=== PATIENT | female | born 1960 | race Caucasian/White ===

== ENCOUNTER 2020-02-20 10:00 | Emergency (ER) | payer OTHER, SELFPAY ==
--- NOTE | ~2020-02-20 | XR_ITS ---
EXAMINATION: XR ribs RT 2V DATE: 02/20/2020 10:33 INDICATION: Right lower rib pain. TECHNIQUE: 3 views of the right ribs were obtained. COMPARISON: Chest 2 views 03/03/2015 FINDINGS: There is a right-sided pneumonia, pleural effusion, or pneumothorax. The heart size is norm al. Surgical clips in the right upper quadrant are likely from cholecystectomy. IMPRESSION: 1. No rib fracture. Reviewed, dictated and finalized at location A. IMPRESSION: 1. No rib fracture.
[2020-02-20 10:13] VITALS: BP 210/91; PULSE 94; RESP 20; TEMP 36.7; O2SAT 100
--- NOTE | 2020-02-20 10:15 | ED.GENADULT ---
HPI - General Adult General Chief complaint: Unspecified Stated complaint: R/side pain Time Seen by Provider: 02/20/20 10:18 Source: patient and RN notes reviewed Mode of arrival: ambulatory Limitations: no limitations History of Present Illness HPI narrative: 60 year old female presents with concern for right chest wall pain. She reports pain started yesterday under her right breast and today feels like it moved around to her right upper back. She denies injury or trauma. She denies rash. She reports pain is stinging and sharp in nature and is worsened with certain movement such as getting up out of a chair. She denies cough or SOB. Reports she is a smoker MD complaint: Chest wall pain Related Data Home Medications Medication Instructions Recorded Confirmed metformin 500 mg tablet 500 mg PO BID 06/18/19 02/20/20 pravastatin 20 mg tablet 20 mg PO DAILY 06/18/19 02/20/20 Allergies Allergy/AdvReac Type Severity Reaction Status Date / Time codeine Allergy Unknown Rash Verified 02/20/20 10:16 Penicillins Allergy Unknown Skin Verified 02/20/20 10:16 irritation Review of Systems Review of Systems: Narrative: CONSTITUTIONAL: Denies malaise, chills, sweats, or fever. CARDIOVASCULAR: Denies chest pain, palpitations, or edema. RESPIRATORY: Denies cough or dyspnea. GASTROINTESTINAL: Denies abdominal pain, nausea, vomiting, diarrhea GENITOURINARY: Denies dysuria or hematuria. SKIN: Denies rash or itching. MUSCULOSKELETAL: Reports right chest wall pain NEUROLOGIC: Denies numbness, weakness All systems reviewed & are unremarkable except as noted in HPI and below PMFSH Family History Family History (Updated 12/03/15 @ 23:19 by DOCTOR UNKNOWN) Mother Family history of diabetes mellitus in first degree relative Sibling Family history of diabetes mellitus in first degree relative Father Family history of heart disease in male family member before age 55 Social History Social History Smoking status: Never smoker Second hand tobacco smoke exposure: Yes Alcohol intake: current Comments At time of signature, agree with nursing past medical, surgical, social and family history. There is no relevant family history pertinent to the presenting complaint Exam Narrative: Exam Narrative: GENERAL: Well-appearing, well-nourished, and in no acute distress. HEAD: Normocephalic, atraumatic. EYES: PERRLA, conjunctivae clear ENT: Mucous membranes moist. NECK: Supple. CHEST: No respiratory distress. Clear to auscultation. No bony deformities, no asymmetry. Speaks in full sentences. HEART: Regular rate and rhythm. No murmur heard. Normal peripheral pulses. MUSCULOSKELETAL: Right posterior chest wall tenderness to deep palpation SKIN: Warm, dry, no rash. NEURO: Alert and oriented x3. PSYCH: Normal mood and affect Course Course Emergency Course: Discussed with patient limited diagnostic capability at [facility], discussed ECG findings, discussed findings compared to prior ECG. Patient does not choose to seek care in the ED at this time. Discussed with patient differential diagnoses, patient still chooses to not seek care in the ED Patient is aware of and understands and agrees to treatment plan. Anticipatory guidance given. Patient agrees to follow-up as directed and is aware of reasons to seek care at the emergency department. Portions of this record may have been created with voice recognition software Vital Signs Vital signs: Vital Signs Temperature 98.1 F 02/20/20 10:13 Pulse Rate 94 02/20/20 10:13 Respiratory Rate 20 02/20/20 10:13 Blood Pressure 210/91 H 02/20/20 10:13 Pulse Oximetry 100 02/20/20 10:13 Temperature 98.1 F 02/20/20 10:13 Pulse Rate 94 02/20/20 10:13 Respiratory Rate 20 02/20/20 10:13 Blood Pressure 210/91 H 02/20/20 10:13 Pulse Oximetry 100 02/20/20 10:13 Reviewed. Patient has history of HTN, did not take HTN medication today Medical Decision Making M
--- NOTE | 2020-02-20 10:57 | ECG_ITS ---
Measurements Intervals [place] Rate: 73 P: 53 TN: 169 QRS: 51 QRSD: 82 T: 73 QT: 381 QTc: 423 Interpretive Statements SINUS RHYTHM CANNOT RULE OUT SEPTAL INFARCT, AGE INDETERMINATE BASELINE ARTIFACT- II, III, AVR, AVL, AVF ABNORMAL ECG Electronically Signed On 02-20-2020 12:06:11 CDT by David Haas D.O.
== END 2020-02-20 11:25 | disposition home or self-care (01) ==
PROVIDERS: Emergency Provider Nurse Practitioner; PCP Internal Medicine
DX: R07.89 Other chest pain (principal); F17.200 Nicotine dependence, unspecified, uncomplicated; E78.00 Pure hypercholesterolemia, unspecified; I10 Essential (primary) hypertension; E11.9 Type 2 diabetes mellitus without complications
CPT/HCPCS: 71100; 93005; 99213; G0463

== ENCOUNTER 2020-10-04 11:07 | Emergency (ER) | payer OTHER, SELFPAY ==
--- NOTE | 2020-10-04 11:29 | ED.DIZZY ---
HPI - Dizziness General Chief Complaint: Ear Stated Complaint: Vertigo Time Seen by Provider: 10/04/20 11:34 Source: patient and RN notes reviewed Mode of arrival: ambulatory Limitations: no limitations History of Present Illness HPI Narrative: 60-year-old female presents with concern for a lateral ear pain. Reports sharp pain that comes and goes, mainly in her right ear, occasionally in her left ear. Reports similar symptoms in the past for which she was treated for vertigo. She denies any dizziness, weakness in any extremity, difficulty swallowing, difficulty speaking, vision changes. Denies rhinorrhea, nasal congestion, sore throat, postnasal drainage. She denies drainage from the ears. Denies any other symptoms. Reports taking Tylenol for pain. Reports she did not take her blood pressure medicine today because she was afraid it would interact with the prescription she might get. MD elicited complaint: other (Ear pain) Related Data Home Medications Medication Instructions Recorded Confirmed metformin 500 mg tablet 500 mg PO BID 06/18/19 10/04/20 pravastatin 20 mg tablet 20 mg PO DAILY 06/18/19 10/04/20 Allergies Allergy/AdvReac Type Severity Reaction Status Date / Time codeine Allergy Unknown Rash Verified 02/20/20 10:16 Penicillins Allergy Unknown Skin Verified 02/20/20 10:16 irritation Review of Systems Review of Systems: Narrative: CONSTITUTIONAL: Denies malaise, chills, sweats, or fever. EYES: Denies visual changes, redness, or discharge. ENT: Denies rhinorrhea, congestion, sinus pain, and sore throat. Reports bilateral ear pain CARDIOVASCULAR: Denies chest pain, palpitations, or edema. RESPIRATORY: Denies cough dyspnea. GASTROINTESTINAL: Denies abdominal pain, nausea, vomiting, diarrhea SKIN: Denies rash or itching. MUSCULOSKELETAL: Denies myalgia. NEUROLOGIC: Denies headache. All systems reviewed & are unremarkable except as noted in HPI and below [facility] Family History Family History (Updated 12/03/15 @ 23:19 by DOCTOR UNKNOWN) Mother Family history of diabetes mellitus in first degree relative Sibling Family history of diabetes mellitus in first degree relative Father Family history of heart disease in male family member before age 55 Social History Social History Smoking status: Never smoker Second hand tobacco smoke exposure: Yes Alcohol intake: current Gender identity (if verbalized by the patient): Female Comments At time of signature, agree with nursing past medical, surgical, social and family history. There is no relevant family history pertinent to the presenting complaint Exam Narrative: Exam Narrative: GENERAL: Well-appearing, well-nourished, and in no acute distress. HEAD: Normocephalic EYES: PERRLA, conjunctivae clear ENT: Nares clear, turbinates pink, discharge. Mucous membranes moist. TM pearly wyatt with dull light reflex bilaterally; no tragal tenderness. Oropharynx not erythematous without lesions. Tonsils not enlarged and without exudate, no drooling, no hoarseness, no trismus, uvula midline. NECK: Supple. No lymphadenopathy CHEST: Clear to auscultation, breath sounds equal. No wheezing, rhonchi, rales, or stridor. No respiratory distress, speaks in full sentences. HEART: Regular rate and rhythm. No murmur heard. SKIN: Warm, dry, no rash. NEURO: Alert and oriented x3. No focal deficits. Cranial nerves II through XII grossly intact PSYCH: Normal mood and affect Course Course Emergency Course: Patient is aware of diagnosis, understands and agrees to treatment plan. Anticipatory guidance given. Patient agrees to follow-up as directed and is aware of reasons to seek care at the emergency department. Portions of this record may have been created with voice recognition software Vital Signs Vital signs: Vital Signs Temperature 98.0 F 10/04/20 11:31 Pulse Rate 94 10/04/20 11:31 Respiratory Rate 18 10/04/20 11:31 Blood Pressure 204/79 H 10/04/20 11:3
[2020-10-04 11:31] VITALS: BP 204/79; PULSE 94; RESP 18; TEMP 36.7; O2SAT 98
== END 2020-10-04 11:43 | disposition home or self-care (01) ==
PROVIDERS: Emergency Provider Nurse Practitioner; PCP Internal Medicine
DX: H65.03 Acute serous otitis media, bilateral (principal); I25.10 Atherosclerotic heart disease of native coronary artery without angina pectoris; E78.00 Pure hypercholesterolemia, unspecified; I10 Essential (primary) hypertension; E11.9 Type 2 diabetes mellitus without complications
CPT/HCPCS: 99213; G0463

== ENCOUNTER 2023-02-28 08:25 | Outpatient (CLI) | payer OTHER, SELFPAY ==
--- NOTE | ~2023-02-28 | MM_ITS ---
EXAMINATION: MM screening marilia BI w zakiya HISTORY: Screening mammogram TECHNIQUE: Craniocaudal and mediolateral oblique 3-D tomosynthesis images were obtained and synthetic 2-D images were generated. CAD analysis was submitted and interpreted. COMPARISON: August 24, 2017 bilateral screening mammogram BREAST PARENCHYMAL COMPOSITION: The breasts are almost entirely fatty. FINDINGS: There is no evidence of suspicious mass, calcification, or architectural distortion to sugg est malignancy in either breast. There has been no suspicious interval change. IMPRESSION: 1. No mammographic evidence of malignancy. 2. Recommend routine screening mammography in one year. BI-RADS Category 1: Negative Reviewed, dictated and finalized at location A.
== END 2023-02-28 08:26 | disposition home or self-care (01) ==
LOC: ANHIMG 08:29
PROVIDERS: PCP Nurse Practitioner; Visit Provider Nurse Practitioner
DX: Z12.31 Encounter for screening mammogram for malignant neoplasm of breast (principal)
CPT/HCPCS: 77063; 77067

== ENCOUNTER 2024-07-10 09:26 | Outpatient (CLI) | payer OTHER, SELFPAY ==
--- OUTSIDE RECORDS SUMMARY | 2024-07-10 10:23 | XMS_ITS | Patient Health Summary ---
Author Organization [facility] Address [address] [place] [address] Care Team Providers Care Data Center Engineer Name Role Phone Abel Willard MD Primary Care Provider [phone] Note from [facility],non-owned Affiliates and Associated Physician Practices is amultiple site organization consisting of ambulatory clinics and hospital sitesin [place], [place], [place] and [place]. This disclosure is being madepursuant to the Care Everywhere program and may not contain all information available regarding this patient. Last updated 18.[facility] Allergies * Codeine(Rash) -Medium Criticality * Penicillin G(Rash) -Medium Criticality Active Problems Problem Noted Date Diagnosed Date Primary biliary cholangitis 08/16/2016 Social History Tobacco Use Types Packs/Day Years Used Date Smoking Tobacco: Every Day Cigarettes Smokeless Tobacco: Never Alcohol Use Standard Drinks/Week Comments Yes 0.8 (1 standard drink = 0.6 oz p ure alcohol) Sex and Gender Information Value Date Recorded Sex Assigned at Not on file Gender Identity Not on file Sexual Orientation Not on file Last Filed Vital Signs Vital Sign Reading Time Taken Comments Blood Pressure 164/81 02/10/2013 9:51 AM CDT Pulse 84 02/10/2013 9:51 AM CDT Temperature 36.9 C (98.5 F) 02/10/2013 9:51 AM CDT Respiratory Rate 20 02/10/2013 9:51 AM CDT Oxygen Saturation - - Inhaled Oxygen Concentration - - Weight 92.1 kg (203 lb) 02/10/2013 9:51 AM CDT Height 167.6 cm (5' 6 ) 02/10/2013 9:51 AM CDT Body Mass Index 32.77 02/10/2013 9:51 AM CDT Procedures * COMPREHENSIVE METABOLIC PANEL(Performed 02/10/2013) * CBC W AUTO DIFFERENTIAL(Performed 02/10/2013) * COMPREHENSIVE METABOLIC PANEL(Performed 08/05/2012) * CBC W AUTO DIFFERENTIAL(Performed 08/05/2012) * PATHOLOGY REPORTS - HPF HISTORICAL(Performed 01/19/2012) * COMPREHENSIVE METABOLIC PANEL(Performed 01/15/2012) * CBC W AUTO DIFFERENTIAL(Performed 01/15/2012) * PATHOLOGY REPORTS - [facility] HISTORICAL(Performed 04/05/2011) Results * (ABNORMAL) CBC W AUTO DIFFERENTIAL (02/10/2013 9:39 AM CDT) Only the most recent of3 resultswithin the time period is included. WBC 11.6(H) 3.5 - 10.5 10^3/uL [facility] RBC 4.60 3.90 - 5.00 10^6/uL [facility] Hemoglobin 14.5 12.0 - 15.5 g/dL [facility] Hematocrit 44.4 35.0 - 45.0 % [facility] MCV 96.5 81.0 - 97.0 FL [facility] MCH 31.5 28.0 - 34.0 PG [facility] MCHC 32.7 32.0 - 36.0 G/DL [facility] Platelet 358 150 - 400 10^3/uL [facility] RDW 13.3 11.2 - 14.8 % [facility] RDW-SD 46.8 36 - 50 FL [facility] MPV 11.1 9.3 - 12.8 FL [facility] Neutrophils % 61.2 35.0 - 70.0 % [facility] Lymphocytes % 27.0 19.7 - 55.1 % [facility] Monocytes % 6.7 3 - 15 % [facility] Eosinophils % 4.8 0.0 - 6.0 % [facility] Basophils % 0.3 0.0 - 1.5 % [facility] Neutrophils Absolute 7.1(H) 1.7 - 7.0 10^3/uL [facility] Lymphocyte Absolute 3.1(H) 0.8 - 2.9 10^3/uL [facility] Monocytes Absolute 0.8(H) 0.14 - 0.66 10^3/uL [facility] Eosinophils Absolute 0.56(H) 0.00 - 0.22 10^3/uL [facility] Basophils Absolute 0.04 0.02 - 0.06 10^3/uL [facility] Differential Type AUTO DIFFERENTIAL [facility] 02/10/2013 9:39 AM CDT 02/10/2013 10:55 AM CDT Ulises Villanueva MD LAB - HEMATOLOGY ORD ERABLES [facility] [address] [phone] * (ABNORMAL) COMPREHENSIVE METABOLIC PANEL (02/10/2013 9:39 AM CDT) Only the most recent of3 resultswithin the time period is included. BUN 11 7 - 26 mg/dL [facility] Creatinine 0.7 0.6 - 1.2 mg/dL [facility] eGFR by MDRD > 60 ML/MIN [facility] Comment: Chronic kidney disease: <60 ml/min Kidney failure: <15 ml/min Based on BSA of 1.73m2. Sodium 143 136 - 145 mmol/L [facility] Potassium 4.1 3.5 - 4.5 mmol/L [facility] Chloride 103 98 - 107 mmol/L [facility] CO2 28 22 - 29 mmol/L [facility] Glucose 94 70 - 115 mg/dL [facility] Calcium 10.0 8.4 - 10.2 mg/dL [facility] Protein Total 7.5 6.0 - 8.3 g/dL [facility] Albumin 4.0 3.4 - 5.0 g/dL [facility] Bilirubin Total 0.6 0.2 - 1.2 mg/dL [facility] Alkaline Phosphatase 323(H) 40 - 150 Units/L [facility] ALT 38 0 - 55 Units/L [facility] AST 44(H) 5 - 34 Units/L [facility] Anion Gap 16 8 - 18 [facility] BUN/Creatinine Ratio 15 7 - 23 [facility] Osmolality Calculation 279 270 - 300 mOsm/kg [facility] Albumin/Globulin Ratio 1.1 1.1 - 2.3 [facility] 02/10/2013 9:39 AM CDT 02/10/2013 10:55 AM CDT Ulises Villanueva MD LAB - CHEMISTRY ANDRE COON [facility] [address] [phone] * PATHOLOGY REPORTS - HPF HISTORICAL (01/19/2012 3:31 AM CDT) Only the most recent of2 resultswithin the time period is included. 01/19/2012 3:31 AM CDT Narrative [facility] - 01/19/2012 3:31 AM CDT Historical Provider LAB - PATHOLOGY/C YTOLOGY ORDERABLES Performing Organization Address City/[facility]/ZIP Co de Phone Number [facility] [address] Care Teams Data Center Engineer Relationship Specialty Start Date End Date Abel Willard MD [address] [place] [address] PCP - General 11/08/10
--- OUTSIDE RECORDS SUMMARY | 2024-07-10 10:23 | XMS_ITS | Clinical Summary ---
Author Organization [facility] Address [address] [place] [address] Care Team Providers Care Casting Room Helper Name Role Phone Abel Willard MD Primary Care Provider [phone] Source Comments [facility],non-owned Affiliates and Associated Physician Practices is amultiple site organization consisting of ambulatory clinics and hospital sitesin [place], [place], [place] and [place]. This disclosure is being madepursuant to the Care Everywhere program and may not contain all information available regarding this patient. 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 Overview (08/06/2017): IMO Import Social History Tobacco Use Types Packs/Day Years [...] Mass Index 32.77 02/10/2013 9:51 AM CDT Plan of Treatment Health Maintenance Due Date Last Done Comments COLOGUARD (AGES 45-75) - COL ON CA SCREENING 1962 COLON MONITORING 1962 COLONOSCOPY - COLON CA SCREENING 1962 CT COLONOGRAPHY - COLON CA SCREENING 1962 Colorectal Cancer Screening 1962 FIT - COLON CA SCREENING 1962 FLEX SIG - COLON CA SCREENING 1962 LIPID TESTING 1962 HIV SCREENING 1977 HEPATITIS C SCREENING 01/30/1980 DTAP/TDAP/TD VACCINES (1 - Tdap) 1981 PNEUMOCOCCAL VACCINE 50+ (1 of 2 - PCV) 1981 PNEUMOCOCCAL VACCINE (1 of 2 - PCV) 1981 ZOSTER VACCINE (1 of 2) 02/04/2012 HEPATITIS B VACCINE (1 of 3 - Risk 3-dose series) 2022 Respiratory Syncytial Virus (RSV) Vaccine Pt: or over 60 yrs (1 - Risk 60-74 years 1-dose series) 2022 COVID-19 VACCINE (4 - 2023-2 5 season) 2024 04/21/2021, 08/29/2020, 08/07/2020 DEPRESSION SCREENING 05/07/2024 MAMMOGRAM 02/28/2025 02/28/2023 PAP SMEAR 01/18/2026 01/18/2023 INFLUENZA VACCINE Completed 03/06/2024 HIB VACCINE Aged Out No longer eligi ble based on patient's age to complete this topic HPV VACCINE Aged Out No longer eligi ble based on patient's age to complete this topic MENINGOCOCCAL (Group B) VACCINE Aged Out No longer eligible b ased on patient's age to complete this topic MENINGOCOCCAL VACCINE Aged Out No vane dianna eligible based on patient's age to complete this topic Care Teams Casting Room Helper Relationship Specialty Start Date End Date Abel Willard MD [address] [place] [address] PCP - General 11/08/10
--- OUTSIDE RECORDS SUMMARY | 2024-07-10 10:23 | XMS_ITS | Clinical Summary ---
Author Organization [facility] Medical Office Building B Address [address] [place] [address] Care Team Providers Care Sound Editor Name Role Phone Patito Gaitan MD Primary Care Provider [phone] Allergies Active Allergy Reactions Criticality Noted Date Comments Codeine Rash Medium 08/05/2012 Penicillin G Rash Medium 08/05/2012 Medications albuterol HFA (PROVENTIL HFA,VENTOLIN HFA,PROAIR HFA) 90 mcg/actuation inhaler Inhale 2 puffs every 4 (four) hours as needed 4 Active amLODIPine (NORVASC) 5 mg tablet Take 2 tablets (10 mg total) by mouth daily 4 Active buPROPion XL (WELLBUTRIN XL) 150 mg 24 hr tablet Take 1 tablet (150 mg total) by mouth daily 4 Active hydrALAZINE (APRESOLINE) 50 mg tablet Take 1 tablet (50 mg total) by mouth 2 (two) times a day 4 Active hydroCHLOROthia zide (HYDRODIURIL) 25 mg tablet Take 1 tablet (25 mg total) by mouth 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 before 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 4 Active losartan-hydroC HLOROthiazide (HYZAAR) 100-12.5 mg per tablet Take 1 tablet by mouth daily 4 Active metoprolol XL (TOPROL-XL) 25 mg extended release tablet Take 1 tablet (25 mg total) by mouth daily 4 Active pravastatin (PRAVACHOL) 20 mg tablet Take 2 tablets (40 mg total) by mouth daily 4 Active umeclidinium-vi lanteroL (Anoro Ellipta) 62.5-25 mcg/actuation blister with device Inhale 1 puff once 4 Active ursodioL (ACTIGALL) 300 mg capsule Take 2 capsules (600 mg total) by mouth 2 (two) times a day 3 Active Airsupra 90-80 mcg/actuation HFA aerosol inhaler Inhale 2 puffs every 4 (four) hours as needed 4 Active varenicline tartrate (CHANTIX OBDULIA) 0.5 mg (11)- 1 mg (42) tablet Use as directed on package instructions; try to quit smoking after 1 week. 53 tablet 4 07/09/19 25 Active Problems Problem Noted Date Diagnosed Date Chronic bronchitis, unspecified chronic bronchit is type 07/08/2024 Encounters Date Type Department Care Team Description 07/08/2024 11:25 AM ORACLE FINANCIALS DEVELOPER Lab [address] Chronic bronchitis, unspecified chronic bronchitis type (HCC) 07/08/2024 10:30 AM ORACLE FINANCIALS DEVELOPER Office Visit [facility] Pul[facility] at [address] [place] [phone] Quang Goodwin DO Chronic bronchitis, unspecified chronic bronchitis type (HCC) (Primary Dx) 07/02/2024 Telephone [facility] at [address] [place] [phone] Tatiana Jalloh 07/01/2024 Telephone [facility] Pul[facility] at [address] [place] [phone] Kendra Quiroga LPN Appt reminder, PFT from Last 3 Months Medical History Medical History Date Comments Hypertension Liver disease COPD (chronic obstructive pulmonary disease) (HC C) Family History Medical History Relation Name Comments Cancer Brother 1 Sunday Drug abuse Brother 1 Sunday Diabetes Brother 2 Shankar Heart disease Brother 3 Rios Heart disease Brother 4 Nikita Heart disease Brother 5 Mauri Liver disease Brother 6 Usman Diabetes Brother 7 Brooks Diabetes Father Emphysema Father Heart disease Father Hypertension Father Lung disease Father Heart disease Mother Heart failure Mother Hypertension Mother Brain cancer Mother's Sister Cancer Mother's Sister Emphysema Sister 1 Trudy Hypertension Sister 1 Trudy Kidney disease Sister 2 Sissy Lung disease Sister 2 Sissy Relation Name Status Comments Brother 1 Sunday Brother 2 Shankar Brother 3 Rios Alive Brother 4 Nikita Alive Brother 5 Mauri Alive Brother 6 Usman Alive Brother 7 Brooks Father Mother Mother's Sister Sister 1 Trudy Alive Sister 2 Sissy Alive Social History Tobacco Use Types Packs/Day Years Used Date Smoking Tobacco: Every Day Cigarettes 1 42.3 Started: 04/09/1982 Tobacco Cessation:Ready to Q uit: Not Asked; Counseling Given: Not Answered Comments Unknown Sex and Gender Information Value Date Recorded Sex Assigned at Not on file Legal Sex Female 9:03 AM ORACLE FINANCIALS DEVELOPER Gender Identity Not on file Sexual Orientation Not on file Obstetrics History Last Filed Vital Signs Vital Sign Reading Time Taken Comments Blood Pressure 158/64 07/08/2024 10:26 AM ORACLE FINANCIALS DEVELOPER Pulse 96 07/08/2024 10:26 AM ORACLE FINANCIALS DEVELOPER Temperature 36.6 C (97.8 F) 07/08/2024 10:26 AM ORACLE FINANCIALS DEVELOPER Respiratory Rate 18 04/09/2024 10:5 8 AM ORACLE FINANCIALS DEVELOPER Oxygen Saturation 95% 07/08/2024 10: 26 AM ORACLE FINANCIALS DEVELOPER Inhaled Oxygen Concentration - - Weight 101.7 kg (224 lb 4.8 oz) 025 10:26 AM ORACLE FINANCIALS DEVELOPER Height 165.1 cm (5' 5 ) 07/08/2024 10:2 6 AM ORACLE FINANCIALS DEVELOPER Body Mass Index 37.33 07/08/2024 10:26 AM ORACLE FINANCIALS DEVELOPER Plan of Treatment Health Maintenance Due Date Last Done Comments Breast Cancer Screening-Mammogram 1962 Colon Cancer Screening-Colonoscopy 1962 Depression Screening 1962 Hepatitis C Screening 1962 Hepatitis B Screening 02/04/1980 Regular Well Visit/Exam 18-64 02/04/1980 Lung Cancer Screening 02/04/2012 Covid-19 Vaccine ( season) 2024 04/21/2021, 08/29/2020, 08/07/2020 Cervical Cancer Screening 01/19/2024 01/18/2023 DTaP/Tdap/Td Vaccine (2 - Td or Tdap) 12/12/203212/2022 Pneumococcal vaccine <65 Completed 12/12/2022 Zoster Vaccine Completed 03/12/2023, 01/04/2023 Influenza Vaccine Completed 03/06/2024 Procedures Procedure Name Priority Date/Time Associated Diagnosis Comments DIFFERENTIAL AUTO Routine 07/08/2024 11: 25 AM [employer]ACLE [employer]CIALS DEVELOPER Chronic bronchitis, unspecified chronic bronchitis type (HCC) CBC WITH AUTO DIFFERENTIAL Routine 07/08/2024 11:25 AM [employer]ACLE FIN[employer]CIALS DEVELOPER Chronic bronchitis, unspecified chronic bronchitis type (HCC) from Last 3 Months Results * (ABNORMAL) Differential, auto (07/08/2024 11:25 AM ORACLE FINANCIALS DEVELOPER) Neutrophil abs 7.8(H) 1.5 - 6.5 K/cumm Imm gran abs 0.0 0.0 - 0.1 K/cumm [facility] ([place]) Lymphocyte abs 3.4(H) 0.8 - 3.3 K/cumm [facility] ([place]) Monocyte abs 0.9(H) 0.2 - 0.8 K/cumm [facility] ([place]) Eosinophil abs 0.3 0.0 - 0.5 K/cumm [facility] ([place]) Basophil abs 0.1 0.0 - 0.1 K/cumm [facility] ([place]) Neutrophil pct 63.2 % [facility] ([place] Comment: Interpretive Data Percent cell count reference ranges are not reported, since discordance with absolute values may lead to misinterpretation of CBC data. Current Interpretive Data was last revised on 2017. Imm gran pct 0.2 % [facility] ([place]) Comment: Interpretive Data Percent cell count reference ranges are not reported, since discordance with absolute values may lead to misinterpretation of CBC data. Current Interpretive Data was last revised on 2017. Lymphocyte pct 27.1 % [facility] ([place]) Comment: Interpretive Data Percent cell count reference ranges are not reported, since discordance with absolute values may lead to misinterpretation of CBC data. Current Interpretive Data was last revised on 2017. Monocyte pct 7.0 % [facility] ([place]) Comment: Interpretive Data Percent cell count reference ranges are not reported, since discordance with absolute values may lead to misinterpretation of CBC data. Current Interpretive Data was last revised on 2017. Eosinophil pct 2.0 % [facility] ([place] Comment: Interpretive Data Percent cell count reference ranges are not reported, since discordance with absolute values may lead to misinterpretation of CBC data. Current Interpretive Data was last revised on 2017. Basophil pct 0.5 % [facility] ([place]) Comment: Interpretive Data Percent cell count reference ranges are not reported, since discordance with absolute values may lead to misinterpretation of CBC data. Current Interpretive Data was last revised on 2017. Blood 07/08/2024 11:2 5 AM ORACLE FINANCIALS DEVELOPER 07/08/2024 2:04 PM ORACLE FINANCIALS DEVELOPER Quang Goodwin DO LAB BLOOD ORDERABLES Sarah valdez Result [facility] ([place]) 1 [facility] [place] [address] * (ABNORMAL) CBC with auto differential (07/08/2024 11:25 AM ORACLE FINANCIALS DEVELOPER) WBC 12.4(H) 3.8 - 9.9 K/cumm Hgb 13.8 11.9 - 15.5 g/dL [facility] ([place]) Hct 42.1 35.6 - 45.5 % [facility] ([place]) Plt 299 150 - 400 K/cumm [facility] ([place]) MPV 11.2 9.1 - 12.3 fL [facility] ([place]) RBC 4.11 3.90 - 5.20 M/cumm [facility] ([place]) MCV 102.4(H) 81.3 - 96.4 fL [facility] ([place]) MCH 33.6(H) 27.1 - 33.3 pg [facility] ([place]) MCHC 32.8 32.3 - 35.7 g/dL [facility] ([place]) RDW CV 13.9 11.1 - 14.9 % [facility] ([place] RDW SD 52.8(H) 35.7 - 48.1 fL [facility] ([place]) NRBC abs 0.00 0.00 - 0.01 K/cumm [facility] ([place]) Blood 07/08/2024 11:2 5 AM [employer]ACLE FINANCIALS DEVELOPER 07/08/2024 2:04 PM ORACLE FINANCIALS DEVELOPER Quang Goodwin DO LAB BLOOD ORDERABLES Sarah l Result [facility] ([place]) 1 [facility] [place] [address] from Last 3 Months Insurance [employer] OPEN ACCESS Care Teams Sound Editor Relationship Specialty Start Date End Date Patito Gaitan MD [address] [place] [address] PCP - General Nurse Practitioner 03/11/24
--- OUTSIDE RECORDS SUMMARY | 2024-07-10 10:23 | XMS_ITS | Encounter Summary ---
Author Organization [facility] Address [facility] [place] [address] Care Team Providers Care Gin Operator Name Role Phone Patito Gaitan NP Primary Care Provider [phone] Encounter Details Date Type Department Care Team (Late st Contact Info) Description 01/23/2023 [employer] Message Enc [facility] Medical Group Family Medicine [facility] [address] [phone] Patito Gaitan NP [address] [place] [id number] [facility] Social History Tobacco Use Types Packs/Day Years Used Date Smoking Tobacco: Every Day Cigarettes 1 40 Passive Smoke Exposure: Current Smokeless Tobacco: Never Comments:1 pack down to 12 c igarettes per day for 3 weeks now. Alcohol Use Standard Drinks/Week Comments Yes 3.3 (1 standard drink = 0.6 oz p ure alcohol) PHQ-2 Answer Date Recorded Patient Health Questionnaire-2 Score 1 11/13/2022 Comments No Sex and Gender Information Value Date Recorded Sex Assigned at Female 05/20/2024 8:19 AM DIRECTOR CLINICAL INFORMATION SERVICES Legal Sex Female 3:57 PM CDT Gender Identity Not on file Sexual Orientation Not on file documented as of this encounter Plan of Treatment Not on file documented as of this encounter Visit Diagnoses Not on filedocumented in this encounter Additional Health Concerns Assessment Noted Time PHQ-9 Depression Total Score: 4 11/14/19 23 3:06 PM CDT documented as of this encounter Care Teams Gin Operator Relationship Specialty Start Date End Date Patito Gaitan NP [address] [place] [address] PCP - General NURSE PRACTITIONER 09/08/21 documented as of this encounter
--- OUTSIDE RECORDS SUMMARY | 2024-07-10 10:23 | XMS_ITS | Referral Summary ---
Author Organization [facility] [employer] Address [address] [place] [address] Care Team Providers Care Supervisor Microfilm Duplicating Unit Name Role Phone Abel Willard MD Primary Care Provider [phone] Source Comments [facility] [employer],non-owned Affiliates and Associated Physician Practices is amultiple site organization consisting of ambulatory clinics and hospital sitesin [place], [place], [place] and [place]. This disclosure is being madepursuant to the Care Everywhere program and may not contain all information available regarding this patient. Last updated 18.[facility] [employer] Allergies Active Allergy Reactions Criticality Noted Date [...] 02/10/2013 9:51 AM CDT Plan of Treatment Not on file Care Teams Supervisor Microfilm Duplicating Unit Relationship Specialty Start Date End Date Abel Willard MD [address] [place] [address] PCP - General 11/08/10
--- OUTSIDE RECORDS SUMMARY | 2024-07-10 10:23 | XMS_ITS | Encounter Summary ---
Author Organization [facility] Address [facility] [place] [address] Care Team Providers Care Postal Service Mail Processor Name Role Phone Patito Gaitan NP Primary Care Provider [phone] Encounter Details Date Type Department Care Team (Late st Contact Info) Description 03/02/2023 [employer] Message Enc [facility] Medical Group Family Medicine [facility] [address] [phone] Patito Gaitan NP [address] [phone] mammogram Social History Tobacco Use Types Packs/Day Years [...] Sex Assigned at Female 05/20/2024 8:19 AM SYNTHETIC RESIN OPERATOR Legal Sex Female 3:57 PM CDT Gender Identity Not on file Sexual Orientation Not on file documented as of this encounter Plan of Treatment Not on file documented as of this encounter Visit Diagnoses Not on filedocumented in this encounter Additional Health Concerns Assessment Noted Time PHQ-9 Depression Total Score: 4 11/14/19 23 3:06 PM CDT documented as of this encounter Care Teams Postal Service Mail Processor Relationship Specialty Start Date End Date Patito Gaitan NP [address] [place] [address] PCP - General NURSE PRACTITIONER 09/08/21 documented as of this encounter
--- OUTSIDE RECORDS SUMMARY | 2024-07-10 10:24 | XMS_ITS | Encounter Summary ---
Author Organization [facility] Address [facility] [place] [address] Care Team Providers Care Fan Mail Clerk Name Role Phone Patito Gaitan NP Primary Care Provider [phone] Encounter Details Date Type Department Care Team (Late st Contact Info) Description 03/23/2023 [employer] Message Enc [facility] Medical [facility] Family Medicine [facility] [address] [phone] Patito Gaitan NP [address] [phone] Social History Tobacco Use Types Packs/Day Years Used Date Smoking Tobacco: Every Day Cigarettes 0.5 40 Passive Smoke Exposure: Current Smokeless Tobacco: Never Comments:1 pack down to 12 c igarettes per day for 3 weeks now. 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
--- OUTSIDE RECORDS SUMMARY | 2024-07-10 10:24 | XMS_ITS | Data Portability ---
Author Organization [place] [facility], Main Office Address [address] [place] [address] Assessment Encounter Date Assessment Date Assessment LastModified by Organization Details LastModified Time 08/21/2023 08/21/2023 Assessment: Nicotine smoke: 1 ppd 1981-present = 42 pack years Severe ACO Pulmonary nodules Bronchiectasis Atelectasis Plan: The following were reviewed and explained to the patient: primary care/referral note Chest CT 08/24/17 lingular bronchiectasis, mucus plugging and atelectasis, 4 mm LLL nodule, 2 mm RUL nodule PFT 04/17/08 FEV1 1.33 L (47%), BD 230 mL = 21%, TLC 5.16 L (95%), RV 2.87 L (152%), DLCO 98% Nicotine cessation counseling provided for 4 minutes. [place] for quitting nicotine include getting ready, getting support and encouragement, learning new skills and behaviors and being prepared to handle slips. Tips for dealing with cravings provided. Prevention of subsequent illnesses from nicotine addiction discussed. Comorbidities include but are not limited to hypertension, cerebrovascular disease, coronary heart disease, congestive heart failure, hyperlipidemia, COPD/asthma, peptic ulcer disease, esophagitis/gastri tis, and osteoporosis. Therapy options offered include: Quitting by total abstinence Receiving nicotine replacement therapy Undergoing hypnosis Filling a bupropion or varenicline prescription Enrolling in Quit For Life program Registering at [email or web address] Making a call to 5-965-RMYZ-NOW ( ). A strong, clear, personalized message was given to the patient to quit smoking. The patient was urged to set a quit date. We discussed patient's barriers to quitting and I will be of assistance when patient is ready to quit. I encouraged patient to inform friends and family of plans to quit with a request for support. I encouraged the patient to remove all cigarettes from the environment. We reviewed any previous quit attempts and lessons learned from them. I encouraged total abstinence from smoking and advised the patient that drinking alcohol and/or associating with other smokers are associated with failure or relapse. Patient can enroll in [facility]'s smoking cessation class through Trudy Smith RN at . Enrollment is free and classes are held every sunday of the month from 1:30 pm to 2:30 pm at the conference room next to the cafeteria on the ground floor. The [employer] recommends annual screening for lung cancer with low-dose computed tomography (LDCT) for people aged 50 to 80 years old who smoke or formerly smoked and have a 20-year or greater pack-year history. Screening is no longer discontinued even when a person has not smoked for 15 years. LDCT ordered. Cough/Dyspnea workup will be done as follows: Respiratory allergen panel for [facility] Serum IgE Serum total IgG, IgG1, IgG2, IgG3, IgG4 Xljsw-7-[id number] n phenotype and level TB stimulated gamma interferon B-type natriuretic peptide (BNP) Eosinophil count Complete pulmonary function testing (PFT) Continue Albuterol HFA as needed. Continue Anoro Ellipta 62.5/25 mcg 1 inhalation daily. The patient does not know how to accurately administer the inhalers. Today, the patient was shown how to take these medications. The proper technique for delivering these medications was instructed. The patient expressed a clear understanding and demonstrated back how to use these medications. Without the proper technique, the patient will not reap the benefits of these medications as the contents will not reach the lower airways as intended to be. Adherence to therapy is advocated. Nonadherence may lead to treatment failure, further progression of the condition, and other complications. Hospitals admissions are often the result of individuals not taking prescription medications accurately. Alternatively, greater adherence to medication regimens have shown to lower rates of hospitalization and decrease total medical costs in patients with chronic medical conditions. Advocated influenza vaccination annually and pneumonia vaccination CECILIA. Advocated weight loss through diet and exercise. Patient's ideal body weight according to height and gender is up to 140 lbs. Encouraged patient to adjust caloric intake to maintain/achieve ideal body weight, emphasizing on fruits, vegetables, whole grains, and fat-free or low-fat products. These include lean meats, poultry, fish, beans, eggs, and nuts and foods that are low in saturated fats, trans-fats, cholesterol, salt (sodium), and glycemic index. Stressed the importance of regular exercise up to the patient's capacity limits. In this case, we recommend 20 min daily walking, 2 days a week of resistance training. Patient to monitor BP daily and bring records to PCP for further management. Follow-up: 1 week after PFT and LDCT [email or web address] Not available 08/21/2023 12:15:33 Plan of Treatment Reminders Order Date Submit Date Provider Last Modified By Organization Details Last Modified Time Details Appointments None recorded. Lab alpha-1-ant itrypsin (aat) phenotype, serum 2023 024 [facility] (Lab), [address] [place], [address], 4 11:15:54 BNP (B-type natriuretic peptide), serum or plasma 2023 024 [facility] (Lab), [address] [place], [address], 4 15:27:00 ige, total, serum 2023 024 [email or web address] (Lab), [address] [place], [address], 4 14:14:34 tb (M tuberculosi s), ifn-gamma rosaline, blood 2023 024 [email or web address] (Lab), [address] [place], [address], 4 14:14:35 eosinophil count, manual, blood (OBS) [email or web address] [place] [address] (Lab), [address] [place], [address], 4 14:14:35 igg subclasses 1+2+3+4, serum 2023 024 [email or web address] (Lab), [address] [place], [address], 4 14:14:35 respiratory allergen panel - [facility] a [address] (Lab), [address] [place], [address], 4 14:14:35 respiratory allergen panel - [facility] b 2023 024 [place] [address] 25 [facility] (Lab), [address] [place], [address], 4 14:14:35 Referral None recorded. Procedures None recorded. Surgeries None recorded. Imaging LDCT, chest, for lung cancer screening - Nicotine smoke: 1 ppd 1981-presen t = 42 pack years; no auth required 2023 024 [facility] [address] [place] [address] ([facility]), [address] [place], [address], 4 09:09:39 Medication Orders albuterol sulfate HFA 90 mcg/actuati on aerosol inhaler 2023 [id number], [address] [place], [place], [id number], 4 12:14:42 Anoro Ellipta 62.5 mcg-25 mcg/actuati on powder for inhalation 2023 024 [id number], [address] [place], [place], [id number], 4 12:14:15 Patient TargetsNo targets recorded. Patient Instructions Encounter Date Encounter Id Patient Instructions Last Modified By Organization Details Last Modified Time 08/21/2023 [id number] complete PFT w/ post bronchodilator spirometry* - no auth required [email or web address] Not available 09/04/2023 09:09:42 Reason for Referral None Reported. Results Created Date Observation Date Name Description Value Unit Range Abnormal Flag Note LastModifiedBy Organization Detail LastModifiedTime Result Notes None recorded. Problems Name Problem SNOMED Code Status Onset Date Resolution Date Notes Provider Name and Address Organization Details Recorded Time Smoker 59974542 Active 2023 Taurus Gallagher MD [address] [facility], [address], [address], [place] 4 12:06:11 Severe chronic obstructive pulmonary disease 788046635 Active 2023 Taurus Gallagher MD [address] [facility], [address], [address], [place] 4 12:09:21 Notes:Medical History: Depre ssion Eosinophils 350/uL Rhinitis to cat and lore grass IgE 55 IU/mL AAT PiMM 176 mg% Severe ACO Bronchiectasis Atelectasis Bilateral pulmonary nodules Hypertension Hyperlipidemia T2DM Thoracic spondylosis Procedure History: Cholecystectomy 2006 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 Medical Equipment None Reported. Allergies Allergen ID Allergen Name Allergen Category Reaction Reaction Severity Criticality Documentation Date Start Date Code Code System Note Provider Name and Address Organization Details Recorded Time 70870 codeine medicatio n rash Not available Not available 08/10/2023 2670 RxNorm Taurus Gallagher MD [address] [facility], [address], [address], [place] 4 12:27:11 [address] penicilli n G Not available rash Not available Not available 08/10/2023 7980 RxNorm Taurus Gallagher MD [address] [facility], [address], [address], [place] 4 12:27:22 Medications Name Sig Start Date Stop Date Status Note LastModified by Organization Details LastModified Time metformin 500 mg tablet Take 1 tablet twice a day by oral route. active Not Available Not Available No t Available nystatin 100,000 unit/mL oral suspension SHAKE LIQUID AND TAKE 5 ML BY MOUTH FOUR TIMES DAILY FOR 10 DAYS 08/20 completed Not Available Not Available Not Available azithromyci n 250 mg tablet TAKE 2 TABLETS BY MOUTH FOR 1 DAY THEN TAKE 1 TABLET BY MOUTH DAILY FOR 4 DAYS 08/20 completed Not Available Not Available Not Available amlodipine 5 mg tablet TAKE 1 TABLET BY MOUTH DAILY active Not Available Not Available No t Available ursodiol 300 mg capsule TAKE 2 CAPSULES BY MOUTH TWICE DAILY active Not Available Not Available No t Available hydralazine 50 mg tablet Take 1 tablet twice a day by oral route. active Not Available Not Available No t Available pravastatin 20 mg tablet Take 1 tablet every day by oral route. active Not Available Not Available No t Available hydrochloro thiazide 25 mg tablet 08/20 completed Not Available Not Available Not Available metoprolol succinate ER 25 mg tablet,exte nded release 24 hr TAKE 1 TABLET BY MOUTH DAILY active Not Available Not Available No t Available albuterol sulfate HFA 90 mcg/actuati on aerosol inhaler Inhale 1 puff every 4 hours by inhalatio n route as needed. 2023 active Not Available Not Available Not Avai lable losartan 50 mg-hydrochl orothiazide 12.5 mg tablet TAKE 1 TABLET BY MOUTH DAILY 08/20 completed Not Available Not Available Not Available hydroxyzine HCl 10 mg tablet 08/20 completed Not Available Not Available Not Available fluticasone propionate 50 mcg/actuati on nasal spray,suspe nsion SHAKE LIQUID AND USE 2 SPRAYS IN EACH NOSTRIL DAILY active Not Available Not Available No t Available bupropion HCl XL 150 mg 24 hr tablet, extended release 08/20 completed Not Available Not Available Not Available losartan 100 mg-hydrochl orothiazide 12.5 mg tablet TAKE 1 TABLET BY MOUTH DAILY active Not Available Not Available No t Available Anoro Ellipta 62.5 mcg-25 mcg/actuati on powder for inhalation INHALE 1 PUFF BY MOUTH EVERY DAY active Not Available Not Available No t Available Vitals Date Recorded Body weight Body mass index (BMI) Body height Heart rate Oxygen saturation Oxygen saturation in Arterial blood by Pulse oximetry Body temperature Systolic blood pressure Diastolic blood pressure Provider Name and Address Organization Details Last Updated DateTime 4 30996.9 5 g 34.9 kg/m2 167.64 cm 90 /min 90 % 90 % 98 [degF] 118 mm[Hg] 74 mm[Hg] Brianna Posada CMA [place] [facility] 11:20:35 Social History Question Answer Notes LastModified by Organizat ion Details LastModified Time Tobacco Smoking Status Current Every Day Smoker Brianna Posada CMA null, [place] [facility] 08/21/2023 11:25:50 What Is Your Level Of Alcohol Consumption? Moderate [email or web address] Information not available 08/21/2023 What Is Your Level Of Caffeine Consumption? Moderate Coffee Information not available 08/21/2023 Are You Currently Employed? Yes [email or web address] Information not available 08/21/2023 What Type Of Diet Are You Following? REGULAR Information not available 08/21/2023 What Is Your Occupation? [employer] [email or web address] Information not available 08/21/2023 Do You Have A Humidifier? No [email or web address] Information not available 08/21/2023 Do You Have Any Pets? Yes 2 Cats [email or web address] Information not available 08/21/2023 Do You Use Your Seat Belt Or Car Seat Routinely? Yes [email or web address] Information not available 08/21/2023 Do You Have Smoke And Carbon Monoxide Detectors In Your Home? Yes [email or web address] Information not available 08/21/2023 Are You Passively Exposed To Smoke? Yes [email or web address] Information no t available 08/21/2023 Do You Feel Stressed (tense, Restless, Nervous, Or Anxious, Or Unable To Sleep At Night)? [id number] [email or web address] Information not available 08/21/2023 Do You Use Any Illicit Or Recreational Drugs? No [email or web address] Information not available 08/21/2023 Do You Use Sunscreen Routinely? Yes Information not available 08/21/2023 How Many Years Have You Smoked Tobacco? 40 [email or web address] Information not available 08/21/2023 Sex: Unknown Functional Status Question Answer Note LastModified by Organizat ion Details LastModified Time What is your exercise level? Occasional [email or web address] Information not available 08/21/2023 Mental Status None recorded. Family History Relationship Description Onset Age of this Age Resolved Age Notes LastModified by Organization Details LastModified Time Father Chronic obstructive pulmonary disease [email or web address] Not available 2023 11:24:13 Father Heart disease [email or web address] Not available 2023 12:03:44 Father Disease of liver [email or web address] Not available 2023 12:03:51 Brother Diabetes mellitus Not available 2023 11:24:29 Brother Malignant tumor of oral cavity [email or web address] Not available 08/05 12:04:34 Mother Chronic obstructive pulmonary disease [email or web address] Not available 2023 12:03:56 Mother Congestive heart failure [email or web address] Not available 2023 12:04:03 Mother Diabetes mellitus [email or web address] Not available 2023 12:04:08 Maternal Aunt Neoplasm of brain [email or web address] Not available 2023 12:04:22 Medical History No medical history recorded. Gynecological HistoryNo gynecological history recorded. Obstetrics History GPAL:G 0 P 0 0 0 0 Past Encounters Encounter ID Performer Location Encounter Start Date Encounter Closed Date Diagnosis/Indication Diagnosis SNOMED-CT Code Diagnosis ICD10 Code Diagnosis Note [id number] Taurus Gallagher MD [facility] [address] [address] 08/21/2023 10:40:57 08/22/2023 08:22:39 Smoker 37790605 F17.218 F17.219 Z87.891 Dyspnea on exertion 6084 5006 R06.09 R05.9 T78.40XA D89.9 Severe chr onic obstructive pulmonary disease 326071429 J44.9 Health Concerns Section Related Observation LastModified by Organization Detai ls LastModified Time None Recorded Concern Status LastModified by Organization Details LastModified Time None Recorded Advance Directives Directive None Recorded Payers Encounter Date Sequence Insurance Name Policy Number Policy Ferrell Covered Member ID Ferrell Member ID Guarantor Name 08/21/2023 1 [employer] Lexi Lopez [id number] Lexi Morrison Notes Date Note Type Note Provider Name and Address Organization Details Recorded Time 08/21/2023 text/html Primary care/Referring provider: Patito Gaitan NP Patient is here to go over her shortness of breath evaluation/managemen t. Initial development of shortness of breath: 2003 Duration of shortness of breath: 20 years Condition of shortness of breath: stable Timing of shortness of breath: evening Frequency: up to 2 times a day Limits activities: yes Aggravating factors: walking, going up steps, bending over, summer time Alleviating factors: rest Modified Medical [employer] [place] (mMRC) Dyspnea Scale - Grade 1 Grade 0 I only get breathless with strenuous exercise . Grade 1 I get short of breath when hurrying on the level or walking up a slight hill . Grade 2 I walk slower than people of the same age on the level because of breathlessness or have to stop for breath when walking at my own pace on the level . Grade 3 I stop for breath after walking about 100 yards or after a few minutes on the level . Grade 4 I am too breathless to leave the house or I am breathless when dressing . Treatment history: Albuterol HFA as needed since 2003Anoro Ellipta 62.5/25 mcg 1 inhalation daily 2022 Other symptoms: Drooling: no Dysarthria: no Neck pain: no Odynophagia: no Dysphagia: no Weak mastication: no Facial weakness: no Nasal speech: no Protruding tongue: no Productive cough: yellowish Wheezing: yes Chest tightness: yes Orthopnea: 2-pillow Frequent throat clearing or swallowing: no Palpitations: no Heartburn: no Edema: no Environmental exposures: Nicotine smoke: 1 ppd 1981-present = 42 pack years [place]: no Dye: no Dust mites: yes Mold: no Damp basement: no Wood burning stove: no Animal dander: cats Cockroaches: no Pollen: yes Arsenic: no Asbestos: no Beryllium: no Cadmium: no Chromium: no Kerr smoke: no Diesel fumes: no Nickel: no Silica: no Soot: no EPWORTH SLEEPINESS SCALE (ESS) CHANCE OF DOZING SCORE 0 = would never doze 1 = slight chance of dozing 2 = moderate chance of dozing 3 = high chance of dozing SITUATION AND CHANCE OF DOZING Sitting and reading - 1 Watching television - 1 Sitting inactive in a public place (e.g. a theater or meeting) - 1 As a passenger in a car for an hour without a break - 1 Lying down to rest in the afternoon when circumstances permit - 1 Sitting and talking to someone - 0 Sitting quietly after lunch without alcohol - 1 In a car, while stopped for a few minutes in the traffic - 1 TOTAL SCORE 7 Subjectively, patient has a slight chance of dozing. Taurus Gallagher MD [address] [facility], [facility] [address], [place], [address], [place] [facility] 08/21/2023 12:19:02 OBGyn Episode No OBEpisode recorded.
--- OUTSIDE RECORDS SUMMARY | 2024-07-10 10:24 | XMS_ITS | Clinical Summary ---
Author Organization [facility] Address [address] [place] [address] Care Team Providers Care Um Rn Name Role Phone Patito Gaitan NP Primary Care Provider [phone] Allergies Active Allergy Reactions Criticality Noted Date Comments Codeine Rash Medium 08/05/2012 Penicillin G Rash Medium 08/05/2012 Medications ursodiol (ACTIGALL) 300 MG capsule Take 2 capsules (600 mg total) by mouth 2 (two) times daily. 023 Active fluticasone propionate (FLONASE) 50 MCG/ACT nasal sprayIndications: Eustachian tube disorder, bilateral shake liquid and use 2 sprays in each nostril daily 16 g 1 024 Active losartan-hydroCHL OROthiazide (HYZAAR) 100-12.5 MG tabletIndications :Uncontrolled hypertension Take 1 tablet by mouth daily. 90 tablet 1 024 Active hydroCHLOROthiazi de (HYDRODIURIL) 25 MG tabletIndications :Uncontrolled hypertension Take 1 tablet (25 mg total) by mouth every morning. 90 tablet 1 024 Active Additional Information Patient taking differently: 37.5 mgOral Every morning,Take one and half tablets, Indications: take one and half tablets, Reported on 05/19/2024 umeclidinium-rick nterol (ANORO ELLIPTA) 62.5-25 MCG/ACT inhalerIndication s:Chronic obstructive pulmonary disease, unspecified COPD type (CMS/HCC HHS/HCC) 1 puff once. 024 Active metoprolol succinate ER (TOPROL-XL) 25 MG 24 hr tabletIndications :Hypertension, unspecified type,Tachycardia Take 1 tablet (25 mg total) by mouth daily. 90 tablet 1 024 Active amLODIPine (NORVASC) 5 MG tabletIndications :Uncontrolled hypertension TAKE 2 TABLETS(10 MG) BY MOUTH DAILY 180 tablet 1 024 Active Albuterol-Budeson catalino (AIRSUPRA) 90-80 MCG/ACT AerosolIndication s:Wheezing,Respir atory disorder, unspecified Inhale 2 puffs into the lungs every 4 (four) hours as needed (For shortness of breath or wheezing). 10.7 g 024 Active hydrALAZINE (APRESOLINE) 50 MG tabletIndications :Uncontrolled hypertension Take 1 tablet (50 mg total) by mouth 3 (three) times daily. 024 Active pravastatin (PRAVACHOL) 20 MG tabletIndications :Hyperlipidemia, unspecified hyperlipidemia type TAKE 2 TABLETS(40 MG) BY MOUTH EVERY NIGHT AT BEDTIME 180 tablet 1 025 Active albuterol sulfate HFA 108 (90 Base) MCG/ACT inhalerIndication s:Chronic obstructive pulmonary disease, unspecified COPD type ([facility] HHS/HCC),Shortnes s of breath INHALE 2 PUFFS INTO THE LUNGS EVERY 4 HOURS NEEDED FOR WHEEZING OR SHORTNESS OF BREATH 17 g 3 025 Active albuterol sulfate HFA 108 (90 Base) MCG/ACT inhalerIndication s:Chronic obstructive pulmonary disease, unspecified COPD type ([facility] HHS/HCC),Shortnes s of breath Inhale 2 puffs into the lungs every 4 (four) hours as needed for Wheezing or Shortness of breath. 17 g 3 024 2024 Discontinued pravastatin (PRAVACHOL) 20 MG tabletIndications :Hyperlipidemia, unspecified hyperlipidemia type Take 2 tablets (40 mg total) by mouth nightly at bedtime. 90 tablet 1 024 2024 Discontinued nirmatrelvir & ritonavir 300/100 (PAXLOVID) 20 x 150 MG & 10 x 100MG tablet packIndications:C OVID-19 Take TWO nirmatrelvir 150 mg tablets along with ONE ritonavir 100 mg tablet, with all three tablets taken together, twice daily for 5 days. May take with or without food. Swallow tablets whole. Do not chew, break or crush. 30 each 025 2024 Active Problems Problem Noted Date Diagnosed Date COPD (chronic obstructive pu lmonary disease) ([facility]) 03/06/2024 Overview (04/28/2024): Uses Albuterol PRN and uses Anoro daily. Has been wheezing more often and feeling short of breath little more often. Pt still smokes. Pt does not see her bone grinder until July. Pt reports symptoms better with Anoro but not great. Assessment & Plan (04/28/2024 2:45 PM RIM FIRE CHARGER OPERATOR): Chronic condition not controlled at times. Will add on Airsupra for shortness of breath/wheezing. Discussed how to take and side effects. If still needing ot use more then twice a week to inform her bone grinder other recommendations. Pt aware of the importance of smoking cessation. Assessment & Plan (03/06/2024 10:13 AM CDT): Chronic condition. Requesting referral to Teodora Cuevas, SANTO bone grinder. Encourage smoking cessation. Hyperlipidemia, unspecified hyperlipidemia type 03/06/2024 Overview (03/06/2024): Chronic condition. Taking pravastatin 20mg daily. Assessment & Plan (03/06/2024 9:34 AM CDT): Chronic condition. Resume statin. Encourage following a healthy well balance diet. Limit saturated and trans fats. Encourage to get plenty of lean meats in your diet and grilled fish. Recommend eating at least 2 servings of fruits and vegetables per day. Encourage to limit sugar, processed foods, and large amount of carbohydrates. Anxiety 03/06/2024 Overview (03/06/2024): Dong well with bupropion 150mg daily. Assessment & Plan (03/06/2024 10:12 AM CDT): Chronic condition, controlled. No changes needed at this time. Menopausal syndrome (hot flashes) 03/06/2024 Overview (03/06/2024): Having mood swings she believes related to her hormones. Reports having menopasual hot flashes. Requesting referral to Dr. Finney to discuss. Assessment & Plan (03/06/2024 10:07 AM CDT): Referral placed her pt request for further discussion. History of chest pain 03/06/2024 Overview (03/06/2024): Has had right upper chest pain without radiation in the past that would last a few seconds. Hx of having a stress test but was many years ago pt tells me. No current chest pain today. Pt has chronic SOB d/t having COPD, smoker. Assessment & Plan (03/06/2024 10:12 AM CDT): Will refer to cardio as well d/t hx of chest pain and pt has multiple tavares issues that put her at risk of cardiovasulcar disease. Obesity (BMI 30-39.9) 03/06/2024 Assessment & Plan (05/19/2024 12:02 PM RIM FIRE CHARGER OPERATOR): Encourage diet and lifestyle changes to assist with weight loss. Assessment & Plan (03/06/2024 10:14 AM CDT): Encourage diet and lifestyle changes to assist with weight loss. Cigarette nicotine dependenc e with nicotine-induced disorder 09/15/2021 Overview (04/14/2024): round up ring hand cigarette smoker. Smokes 1 PPD. Cut back but increased again. Takes bupropion but has not helped her quit smoking. Recently had her lung cancer CT scan 04/01/24 and repeat in 12 months recommended. Pt is est with pulmonology now Dr. Goodwin with [facility] who is ordering pt more lung testing and wants pt to have repeat chest CT in six months. Chantix was started but pt had nightmaires with use so med was stopped. Assessment & Plan (04/14/2024 12:36 PM RIM FIRE CHARGER OPERATOR): Highly encourage smoking cessation. Continue to follow up with pulm as directed. Assessment & Plan (03/06/2024 10:13 AM CDT): Encourage smoking cessation. Not ready to quit. Uncontrolled hypertension 09/15/2021 Overview (05/19/2024): Chronic condition. BP is improving but not yet to goal. Has been in the 140's over 80's. Denies chest pain, palpitations, has chronic shortness of breath, dizziness, lightheadedness or lower extremity edema. Denies any orthopnea or PND. Is on multiple meds to include Amlodipine 10mg daily hydralazine 50mg TID now, losartan- HCTZ 100-12.5mg plus 25mg of HCTZ and Metoprolol 25mg daily. Pt was referred to cardiology with [facility] as well to [facility]. No apt made yet. Assessment & Plan (05/19/2024 12:02 PM RIM FIRE CHARGER OPERATOR): Chronic condition not controlled yet. Med adjustment today to increase Hydralazine to 50mg to 4 x's a day. Pt to also increase her HCTZ 25mg tablet to 1 1/2 (37.5.mg) because also taking 12.5mg with losartan 100mg. Follow up in 1 month nurse visit for BP check if controlled.If not pt informed pt to follow up with me as we would need to made a med change. If not a goal I dicussed switching her HCTZ to chlorthalidone Goal for BP to stay below 140/90. Encourage lifestyle modifications to include healthy eating, decrease salt and caffeine in diet, routine exercise, and weight loss, Encourage smoking cessation highly encouraged. Assessment & Plan (04/28/2024 2:45 PM RIM FIRE CHARGER OPERATOR): Chronic condition not controlled yet. Med adjustment today. Pt to increase Hydralazine to TID at this time. Goal for BP to stay below 140/90. Encourage lifestyle modifications to include healthy eating, decrease salt and caffeine in diet, routine exercise, and weight loss, Encourage smoking cessation. Assessment & Plan (04/14/2024 1:24 PM RIM FIRE CHARGER OPERATOR): Pt is going to review her home med list to our med list and let me know if she is taking everythign as directed or not. She does not feel she is on everything yet that is on her current med list but is not able to tell me what she is taking. Pt will call in or send a [employer] message once she checks when she gets home. Med adjustment can be made once I know what she is actually taking. Goal for BP to stay below 140/90. Encourage lifestyle modifications to include healthy eating, decrease salt and caffeine in diet, routine exercise, and weight loss. Encourage smoking cessation Assessment & Plan (03/20/2024 1:02 PM RIM FIRE CHARGER OPERATOR): Will add on her other BP meds and discussed with pt what to begin first and will monitor pt closely until her BP gets to goal. Goal for BP to stay below 140/90. Encourage lifestyle modifications to include healthy eating, decrease salt and caffeine in diet, routine exercise, and weight loss. Encourage smoking cessation. Assessment & Plan (03/06/2024 10:28 AM CDT): BP elevated today as expected. Has not been on her meds. While awaiting her labs will begin pt on amlodipine 5mg and will titrate back on her other meds based on need. Goal for BP to stay below 140/90. Encourage lifestyle modifications to include healthy eating, decrease salt and caffeine in diet, routine exercise, and weight loss Primary biliary cholangitis ([facility]) Overview (03/06/2024): Was following with Dr. Rico. Was started on Ursodiol but has not taken since last year. Last seen. Pt drinks 3 oksana and cokes per night No intentions on wanting to quit. Has not had a colonoscopy Assessment & Plan (03/06/2024 10:07 AM CDT): Referral back to Dr. Rico placed. Encounters Date Type Department Care Team Description 06/09/2024 Telephone [facility] - [place] [address] [place] [address] Patito Gaitan NP COVID-19 05/19/2024 11:20 AM RIM FIRE CHARGER OPERATOR Office Visit [address] [place] [address] Patito Gaitan NP Hypertension (Patient presents for a 2 week follow up HTN) 05/19/2024 Travel 04/28/2024 2:20 PM RIM FIRE CHARGER OPERATOR Office Visit [address] [place] [address] Patito Gaitan NP Hypertension (Patient presents for a 2 week follow up HTN) 04/28/2024 Travel 04/14/2024 12:20 PM RIM FIRE CHARGER OPERATOR Office Visit [address] [place] [address] Patito Gaitan NP Hypertension (Patient presents for a 2 week follow up HTN) 04/14/2024 Travel from Last 3 Months Immunizations Name Administration Dates Next Due Fluzone (IIV3, Trivalent, 0. 5 ML Prefilled Syringe) 03/06/2024 PFIZER COVID-19 (ORIGINAL FO RMULATION, PURPLE CAP) mRNA, LNP-S, PF, 30 MCG/0.3 ML DOSE 04/21/2021,08/29/2020,08/07/2020 Pneumococcal (Prevnar 20) 12/12/2022 Shingrix 03/12/2023,01/04/2023 Tdap (Adacel) 12/12/2022 Family History Medical History Relation Comments Diabetes Brother Alcohol Abuse Father Heart Disease Father Hypertension Father COPD Mother Heart Disease Mother Miscarriages / Stillbirths Mother Relation Status Comments Brother Father Mother Social History Tobacco Use Types Packs/Day Years Used Date Smoking Tobacco: Every Day Cigarettes 1 40 Passive Smoke Exposure: Current Smokeless Tobacco: Never Tobacco Cessation:Ready to Q uit: No; Counseling Given: Yes Comments:1 pack down to 12 cigarettes per day for 3 weeks now. Alcohol Use Standard Drinks/Week Comments Yes 3.3 (1 standard drink = 0.6 oz p ure alcohol) PHQ-2 Answer Date Recorded Patient Health Questionnaire-2 Score 0 05/19/2024 Comments No Sex and Gender Information Value Date Recorded Sex Assigned at Female 05/20/2024 8:19 AM RIM FIRE CHARGER OPERATOR Legal Sex Female 3:57 PM CDT Gender Identity Not on file Sexual Orientation Not on file Last Filed Vital Signs Vital Sign Reading Time Taken Comments Blood Pressure 160/80 05/19/2024 12:00 PM RIM FIRE CHARGER OPERATOR Pulse 73 05/19/2024 11:28 AM RIM FIRE CHARGER OPERATOR Temperature 35.9 C (96.7 F) 05/19/2024 11:28 AM RIM FIRE CHARGER OPERATOR Respiratory Rate 22 05/19/2024 11:28 AM RIM FIRE CHARGER OPERATOR Oxygen Saturation 95% 05/19/2024 11:28 AM RIM FIRE CHARGER OPERATOR Inhaled Oxygen Concentration - - Weight 99.8 kg (220 lb) 05/19/2024 11:28 AM RIM FIRE CHARGER OPERATOR Height 167.6 cm (5' 6 ) 05/19/2024 11:28 AM RIM FIRE CHARGER OPERATOR Body Mass Index 35.51 05/19/2024 11:28 AM RIM FIRE CHARGER OPERATOR Plan of Treatment Health Maintenance Due Date Last Done Comments Cervical Cancer Screening Pa p with HPV Testing (Age 30 to 64) Every 5 Years 02/04/1992 RSV Immunization or 60+ Years (1 - Risk 60-74 years 1-dose series) 2022 COVID-19 Vaccine (2023-2 5 season) 2024 04/21/2021, 08/29/2020, 08/07/2020 Mammogram Screening 02/28/2025 02/28/2023 Annual Physical 03/06/2025 03/06/2024, 12/12/2022, 09/13/2021 Lung Cancer Screening 03/26/2025 03/26/2024 Cervical Cancer Screening Pa p Smear (Age 30 to 64) Every 3 Years 01/18/2026 01/18/2023 Cervical Cancer Screening wi th HPV 01/18/2026 Colorectal Cancer Screening Colonoscopy (10 Years) 03/31/2029 DTaP, Tdap and Td Vaccines ( 2 - Td or Tdap) 12/12/2032 12/12/2022 Hepatitis C Completed 09/29/2021 Pneumococcal Vaccine: Pediatrics (0 to 5 Years) and At-Risk Patients (6 to 64 Years) Completed 12/12/2022 Zoster Vaccines Completed 03/12/2023, 01/04/2023 Influenza Adult Completed 03/06/2024 PHQ-2 (Physician [place]) Completed 05/19/2024 Meningococcal B Vaccine Aged Out No l onger eligible based on patient's age to complete this topic Meningococcal Vaccine Aged Out No vane dianna eligible based on patient's age to complete this topic RSV Immunizations Under 20 Months Aged Out No longer eligible b ased on patient's age to complete this topic Procedures Procedure Name Priority Date/Time Associated Diagnosis Comments CT LUNG SCREENING Routine 03/26/2024 10: 38 AM RIM FIRE CHARGER OPERATOR Cigarette nicotine dependence with nicotine-induced disorder MAMMOGRAM GENERIC (SCAN ORDER) 02/28/2023 CYTOPATH CERV/VAG THIN LAYER Routine 01/18/2023 8:57 AM CDT HEPATITIS C ANTIBODY Routine 09/29/2021 9:28 AM CDT Need for hepatitis C screening test from Last 3 Months or Most Recently Relevant to Health Maintenance Results * CT LUNG SCREENING (03/26/2024 10:38 AM RIM FIRE CHARGER OPERATOR) Anatomical Region Laterality Modality Chest Computed Tomogra phy 04/01/2024 10:4 3 AM RIM FIRE CHARGER OPERATOR Impressions 04/01/2024 10:47 AM RIM FIRE CHARGER OPERATOR IMPRESSION: 1. LUNG-RADS category 2: Benign appearance or behavior-nodules with a very low likelihood of becoming a clinically active cancer due to size or lack of growth. 2. LUNG-RADS category S: Negative, no new/unknown potentially significant incidental findings requiring urgent additional evaluation. 3. Other incidental findings as above. Scattered tree-in-bud and centrilobular nodules bilaterally suggestive of respiratory bronchiolitis. Clinical correlation and follow-up recommended. RECOMMENDATIONS: Follow-up LDCT Chest in 12 months (on or around 03/26/2025). Ordered By: PATITO GAITAN Interpreted By: Haja Meadows, 04/01/2024 10:43 AM Narrative 04/01/2024 10:47 AM RIM FIRE CHARGER OPERATOR [address] [address] EXAM: LUNG SCREENING LOW-DOSE CT THORAX WITHOUT CONTRAST DATE: 03/26/2024 10:27 AM HISTORY: Asymptomatic patient meeting NCCN high-risk criteria for lung screening. COMPARISON: None TECHNIQUE: Noncontrast, helical, low-dose CT (LDCT) chest per standard departmental protocol. A dose lowering technique was used for this procedure, which may include, but is not limited to, dose reduction technique, automated exposure control, iterative reconstruction, ALARA (As Low As Reasonably Achievable), or Image Gently techniques. FINDINGS: Lung Screening Specific (LUNG-RADS): 3.6 mm left lower lobe nodule axial image 97. Baseline. LungRADS 2. 5.0 mm left upper lobe nodule axial image 78. Baseline. LungRADS 2. Potentially Significant Incidentals (LUNG-RADS category S): None. Pulmonary Incidentals: Scattered tree-in-bud and centrilobular nodules bilaterally suggestive of respiratory bronchiolitis. Clinical correlation and follow-up recommended. Other Incidentals: Atherosclerosis and coronary calcifications. Scattered degenerative disc disease. Procedure Note Haja Meadows MD - 04/01/2024 [id number] [place] [address] EXAM: LUNG SCREENING LOW-DOSE CT THORAX WITHOUT CONTRAST DATE: 03/26/2024 10:27 AM HISTORY: Asymptomatic patient meeting NCCN high-risk criteria for lungscreening. COMPARISON: None TECHNIQUE: Noncontrast, helical, low-dose CT (LDCT) chest per standarddepartmental protocol. A dose lowering technique was used for this procedure, which may include,but is not limited to, dose reduction technique, automated exposurecontrol, iterative reconstruction, ALARA (As Low As ReasonablyAchievable), or Image Gently techniques. FINDINGS: Lung Screening Specific (LUNG-RADS): 3.6 mm left lower lobe nodule axial image 97. Baseline. LungRADS 2. 5.0 mm left upper lobe nodule axial image 78. Baseline. LungRADS 2. Potentially Significant Incidentals (LUNG-RADS category S): None. Pulmonary Incidentals: Scattered tree-in-bud and centrilobular nodulesbilaterally suggestive of respiratory bronchiolitis. Clinical correlationand follow-up recommended. Other Incidentals: Atherosclerosis and coronary calcifications. Scattereddegenerative disc disease. IMPRESSION: 1. LUNG-RADS category 2: Benign appearance or behavior-nodules with a verylow likelihood of becoming a clinically active cancer due to size or lackof growth. 2. LUNG-RADS category S: Negative, no new/unknown potentially significantincidental findings requiring urgent additional evaluation. 3. Other incidental findings as above. Scattered tree-in-bud andcentrilobular nodules bilaterally suggestive of respiratory bronchiolitis.Clinical correlation and follow-up recommended. RECOMMENDATIONS: Follow-up LDCT Chest in 12 months (on or [id number]/26/2025). Ordered By: PATITO GAITAN Interpreted By: Haja Meadows, 04/01/2024 10:43 AM us Patito Gaitan SAND CASTER APPRENTICE CT Final Res ult * MAMMOGRAM GENERIC (02/28/2023) Anatomical Region Laterality Modality Other 02/28/2023 [facility] Scanned SCANNING Final Resu lt * Cytopath Cerv/Vag Thin Layer (01/18/2023 8:57 AM CDT) THIN PREP PAP [address] [id number] Department of Pathology Pathology Report CERVICAL/VAGINAL PAP SMEAR REPORT Name: LARISA MORRISON Age: 9 1960 (Age: 62) Location: [facility] Sex: F Collected Date: 01/18/2023 [facility] #: [id number] Date Received: 01/22/2023 Date Reported: 01/22/2023 Provider: PATITO GAITAN NP INTERPRETATION CERVICAL/ENDOCERVI DIANE: SATISFACTORY FOR EVALUATION. ENDOCERVICAL/TRANS FORMATION ZONE COMPONENT PRESENT. NEGATIVE FOR INTRAEPITHELIAL LESION OR MALIGNANCY. Electronically Signed Out By DONNA Moreno (ASCP) CLINICAL HISTORY Z01.419 SCREENING PAP TEST ThinPrep Pap Test with reflex HR HPV testing for ASCUS/LSIL diagnosis for post-menopausal patient. Date of Last Menstrual Period: 20 YRS AGO Menstrual Status: Post-Menopausal SPECIMEN SUBMITTED CERVICAL/ENDOCERVI DIANE Specimen Received:1 Thin Prep Vial, Image Assisted Pap (SMD) Please note: The Pap smear is not a diagnostic test. It is a screening test. Negative results on combined screening (Pap test and HPV-DNA) have a high negative predictive value (99.1-100 percent) for cervical cancer. The pap test is not effective in detecting cervical adenocarcinoma. [facility] 01/18/2023 8:57 AM CDT 01/22/2023 8:57 AM CDT Comment:CERVICAL/ENDOCERVICA L Patito Gaitan NP PATHOLOGY/CYTOLOGY ORDERA [facility] Final Result [facility] [address] [place] [address], * HEPATITIS C ANTIBODY (09/29/2021 9:28 AM CDT) HEPATITIS C AB <0.1 0.0 - 0.9 s/co ratio [facility] 1 Comment: Negative: < 0.8 Indeterminate: 0.8 - 0.9 Positive: > 0.9 HCV antibody alone does not differentiate between previous resolved infection and active infection. The CDC and current clinical guidelines recommend that a positive HCV antibody result be followed up with an HCV RNA test to support the diagnosis of acute HCV infection. [facility] offers Hepatitis C Virus (HCV) RNA, Diagnosis, BRIAN ([id number]) and Hepatitis C Virus (HCV) Antibody with reflex to Quantitative Real-time PCR ([id number]). 09/29/2021 9:28 AM CDT 09/29/2021 Narrative [facility] - 09/30/2021 8:08 AM CDT Performed at: [address] [place] [id number] Floral Department Specialist: Alejandro Deshpande PhD, Phone: [phone] Patito Gaitan NP LABORATORY Final Res ult [facility] [address] [place] [address] [facility] 1 from Last 3 Months or Most Recently Relevant to Health Maintenance Insurance [employer] OPEN ACCESS [facility] Care Teams Um Rn Relationship Specialty Start Date End Date Patito Gaitan NP [id number] [address] PCP - General NURSE PRACTITIONER 09/08/21
--- OUTSIDE RECORDS SUMMARY | 2024-07-10 10:24 | XMS_ITS | Referral Summary ---
Author Organization [facility] Medical Office Building B Address [address] [place] [address] Care Team Providers Care Supervisor Adult Education Name Role Phone Patito Gaitan MD Primary Care Provider +1- [phone] Encounters Date Type Department Care Team Description 07/08/2024 11:25 AM MEDIA CONSULTANT OUTSIDE SALES Lab [address] Chronic bronchitis, unspecified chronic bronchitis type (HCC) 07/08/2024 10:30 AM MEDIA CONSULTANT OUTSIDE SALES Office Visit [facility] Pulmonary at [address] [address] Quang Goodwin DO Chronic bronchitis, unspecified chronic bronchitis type (HCC) (Primary Dx) 07/02/2024 Telephone [facility] Pulmonary at [address] [address] Tatiana Jalloh 07/01/2024 Telephone [facility] Pulmonary at [address] [address] Kendra Quiroga LPN Appt reminder, PFT from Last 3 Months Allergies Active Allergy Reactions Criticality Noted Date [...] 1 tablet (25 mg total) by mouth biophysics professor before breakfast 4 Active losartan-hydroC HLOROthiazide (HYZAAR) [...] bronchitis, unspecified chronic bronchit is type 07/08/2024 Social History Tobacco Use Types Packs/Day Years Used Date Smoking Tobacco: Every Day Cigarettes 1 42.3 Started: 04/09/1982 Tobacco Cessation:Ready to Q uit: Not Asked; Counseling Given: Not Answered Comments Unknown Sex and Gender Information Value Date Recorded Sex Assigned at Not on file Legal Sex Female 9:03 AM MEDIA CONSULTANT OUTSIDE SALES Gender Identity Not on file Sexual Orientation Not on file Last Filed Vital Signs Vital Sign Reading Time Taken Comments Blood Pressure 158/64 07/08/2024 10:26 AM MEDIA CONSULTANT OUTSIDE SALES Pulse 96 07/08/2024 10:26 AM MEDIA CONSULTANT OUTSIDE SALES Temperature 36.6 C (97.8 F) 07/08/2024 10:26 AM MEDIA CONSULTANT OUTSIDE SALES Respiratory Rate 18 04/09/2024 10:5 8 AM MEDIA CONSULTANT OUTSIDE SALES Oxygen Saturation 95% 07/08/2024 10: 26 AM MEDIA CONSULTANT OUTSIDE SALES Inhaled Oxygen Concentration - - Weight 101.7 kg (224 lb 4.8 oz) 025 10:26 AM MEDIA CONSULTANT OUTSIDE SALES Height 165.1 cm (5' 5 ) 07/08/2024 10:2 6 AM MEDIA CONSULTANT OUTSIDE SALES Body Mass Index 37.33 07/08/2024 10:26 AM MEDIA CONSULTANT OUTSIDE SALES Plan of Treatment Not on file Procedures Procedure Name Priority Date/Time Associated Diagnosis Comments DIFFERENTIAL AUTO Routine 07/08/2024 11: 25 AM MEDIA CONSULTANT OUTSIDE SALES Chronic bronchitis, unspecified chronic bronchitis type (HCC) CBC WITH AUTO DIFFERENTIAL Routine 07/08/2024 11:25 AM MEDIA CONSULTANT OUTSIDE SALES Chronic bronchitis, unspecified chronic bronchitis type (HCC) from Last 3 Months Results * (ABNORMAL) Differential, auto (07/08/2024 11:25 AM MEDIA CONSULTANT OUTSIDE SALES) Neutrophil abs 7.8(H) 1.5 - 6.5 K/cumm [...] on 2017. Blood 07/08/2024 11:2 5 AM MEDIA CONSULTANT OUTSIDE SALES 07/08/2024 2:04 PM MEDIA CONSULTANT OUTSIDE SALES Quang Goodwin DO LAB BLOOD ORDERABLES Sarah l Result [facility] Department [place] [address] * (ABNORMAL) CBC with auto differential (07/08/2024 11:25 AM MEDIA CONSULTANT OUTSIDE SALES) WBC 12.4(H) 3.8 - 9.9 K/cumm Hgb [...] NRBC abs 0.00 0.00 - 0.01 K/cumm [facility] ([facility]) Blood 07/08/2024 11:2 5 AM MEDIA CONSULTANT OUTSIDE SALES 07/08/2024 2:04 PM MEDIA CONSULTANT OUTSIDE SALES Quang Goodwin DO LAB BLOOD ORDERABLES Sarah l Result [facility] ([facility] Department [place] [address] from Last 3 Months Insurance [employer] OPEN ACCESS Care Teams Supervisor Adult Education Relationship Specialty Start Date End Date Patito Gaitan MD [address] [address] PCP - General Nurse Practitioner 03/11/24
--- OUTSIDE RECORDS SUMMARY | 2024-07-10 10:24 | XMS_ITS | Encounter Summary ---
Author Organization [facility] Address [facility] [place] [address] Care Team Providers Care Credit Reference Clerk Name Role Phone Patito Gaitan NP Primary Care Provider [phone] -[phone] Encounter Details Date Type Department Care Team (Late st Contact Info) Description 06/29/2023 [employer] Message Enc [facility] Family Medicine [facility] [address] [address] Patito Gaitan NP [address] [id number] Blood pressure Social History Tobacco Use Types Packs/Day Years Used Date Smoking Tobacco: Every Day Cigarettes 0.5 40 Passive Smoke Exposure: Current Smokeless Tobacco: Never Comments:1 pack down to 12 c igarettes per day for 3 weeks now. Alcohol Use Standard Drinks/Week Comments Yes 3.3 (1 standard drink = 0.6 oz p ure alcohol) PHQ-2 Answer Date Recorded Patient Health Questionnaire-2 Score 0 05/17/2023 Comments No Sex and Gender Information Value Date Recorded Sex Assigned at Female 05/20/2024 8:19 AM IMAGING ACCOUNT MANAGER Legal Sex Female 3:57 PM CDT Gender Identity Not on file Sexual Orientation Not on file documented as of this encounter Plan of Treatment Not on file documented as of this encounter Visit Diagnoses Not on filedocumented in this encounter Additional Health Concerns Assessment Noted Time PHQ-9 Depression Total Score: 4 11/14/19 23 3:06 PM CDT documented as of this encounter Care Teams Credit Reference Clerk Relationship Specialty Start Date End Date Patito aGitan NP [address] [place] [address] PCP - General NURSE PRACTITIONER 09/08/21 documented as of this encounter
--- OUTSIDE RECORDS SUMMARY | 2024-07-10 10:24 | XMS_ITS | Encounter Summary ---
Author Organization [facility] Address [facility] [place] [address] Care Team Providers Care Speaker Mounter Name Role Phone Patito Gaitan NP Primary Care Provider [phone] [phone] Encounter Details Date Type Department Care Team (Late st Contact Info) Description 09/27/2021 [employer] Message Enc [facility] Medical Group Family Medicine [facility] [address] [id number] Patito Gaitan, SANTO [address] [phone] follow up on blood pressure Social History Tobacco Use Types Packs/Day Years Used Date Smoking Tobacco: Every Day Cigarettes 1 40 Smokeless Tobacco: Never Alcohol Use Standard Drinks/Week Comments Yes 0 (1 standard drink = 0.6 oz pur e alcohol) PHQ-2 Answer Date Recorded PHQ-2 Score - If the patient scores above 3, please move on to questions 3-9 0 09/13/2021 Comments No Sex and Gender Information Value Date Recorded Sex Assigned at Female 05/20/2024 8:19 AM CARROT TIER Legal Sex Female 3:57 PM CDT Gender Identity Not on file Sexual Orientation Not on file COVID-19 Exposure Response Date Recorded In the last 10 days, have yo u been in contact with someone who was confirmed or suspected to have Coronavirus/COVID-19? No / Unsure 09/13/2021 3:18 PM CDT documented as of this encounter Plan of Treatment Not on file documented as of this encounter Visit Diagnoses Not on filedocumented in this encounter Care Teams Speaker Mounter Relationship Specialty Start Date End Date Patito Gaitan NP [address] [place] [address] PCP - General NURSE PRACTITIONER 09/08/21 documented as of this encounter
--- NOTE | 2024-07-11 14:39 | WPDPFTINT ---
PFT Procedure Performed PFT Procedure Performed Plethysmography (Lung Vol) Diffusing Cap (DLCO) Flow Vol Loop Spirometry w/o Bronchodil PFT Interpretation Lung volumes were measured with the body plethysmography method. The elevated RV could be due to air trapping. The remaining lung volumes are unremarkable. Spirometry showed diminished expiratory flow rates and a diminished FEV1 to FVC ratio 53%, indicative of obstructive airway disease. No post bronchodilator study was conducted. Lung diffusion capacity is within the normal range at 91% predicted. The flow-volume loop is consistent with obstructive airway disease. Impression: Moderate obstructive airway disease with evidence of air trapping. Lung diffusion capacity within the normal range.
== END 2024-07-10 09:27 | disposition home or self-care (01) ==
LOC: ANHPFT 09:28
PROVIDERS: PCP Nurse Practitioner
DX: J44.9 Chronic obstructive pulmonary disease, unspecified (principal)
CPT/HCPCS: 94375; 94726; 94729

== ENCOUNTER 2024-10-17 08:26 | Outpatient (CLI) | payer OTHER, SELFPAY ==
--- NOTE | ~2024-10-17 | DEXA_ITS ---
Bone Density Report Name: LARISA FERRO Age: 64 Sex: Female Ethnicity: White Date of : 1960 Indication: postmenopausal; screening for osteoporosis; height loss; Referring Provider: NIKI, [place] Clark Study: Bone densitometry was performed. Exam Date: October 17, 2024 Accession number: [id number] Bone Density: Region BMD T-score Z-score Classification AP Spine(L1-L4) 0.797 -2.3 -0.7 Osteopenia Femoral Neck (Left) 0.695 -1.4 0.0 Osteopenia Total Hip (Left) 0.950 0.1 1.2 Normal Femoral Neck (Right) 0.700 -1.3 0.1 Osteopenia Total Hip (Right) 0.914 -0.2 0.9 Normal Total Hip Mean 0.932 -0.1 1.1 Normal World Health Organization criteria for BMD impression classify patients as: Normal (T-score at or above -1.0), Osteopenia (T-score between -1.0 and -2.5), or Osteoporosis (T-score at or below -2.5). 10-year Fracture Risk(1): Major Osteoporotic Fracture 7.5% Hip Fracture 1.0% Reported Risk Factors: [place] (), Neck BMD=0.695, BMI=38.4, smoking (1) FRAX(R) Version 3.08. Fracture probability calculated for an untreated patient. Fracture probability may be lower if the patient has received treatment. Clinical Information Provided by Patient: Smokes Patient maximum height was 68 Menopause Age: 42 Drinks caffeinated beverages Onset of menses at age 15 Number of children 1 Impression: The patient has low bone mass, based on the Total Spine T-score. The patient has an estimated ten-year risk of hip fracture of 1% and an estimated ten-year risk of major fracture of 7.5%, based on the WHO FRAX algorithm. The patient has risk factors, including: smoking. Discussion: BONE DENSITY IS LOW AT ONE OR MORE SKELETAL SITES. This patient's lowest T-score is low at one or more skeletal sites. It meets the World Health Organization's (WHO) criteria for ?low bone mass? (T-score between -1.0 and -2.5). The patient's 10-year risk of fracture as calculated by FRAX is less than the threshold where pharmacological therapy is recommended by the National Osteoporosis Foundation (NOF). However, all treatment decisions require clinical judgment and consideration of individual patient factors, including patient preferences, comorbidities, previous drug use, risk factors not captured in the FRAX model (e.g., frailty, falls, vitamin D deficiency, increased bone turnover, interval significant decline in bone density) and possible under or overestimation of fracture risk by FRAX. The patient should follow a healthful lifestyle (good nutrition with adequate calcium and vitamin D, and appropriate weight-bearing exercise). Follow-Up: Consider repeating this study in 2 to 3 years to reassess this patient's status, or sooner if there is some new clinical indication. Reported by: BROOKE on 10/17/2024 9:17:00 AM. Reviewed, dictated and finalized at location A.
--- NOTE | ~2024-10-17 | MM_ITS ---
EXAMINATION: MM screening marilia BI w zakiya HISTORY: Screening TECHNIQUE: Craniocaudal and mediolateral oblique 3-D tomosynthesis images were obtained and synthetic 2-D images were generated. CAD analysis was submitted and interpreted. COMPARISON: Comparison to multiple prior studies sequentially, with oldest reviewed study dated 08/24. BREAST PARENCHYMAL COMPOSITION: Not Dense: The breasts are almost entirely fatty. FINDINGS: There is no evidence of suspicious mass, calcification, or architectural distortion to sugg est malignancy in either breast. There has been no suspicious interval change. IMPRESSION: 1. No mammographic evidence of malignancy. 2. Recommend routine screening mammography in one year. BI-RADS Category 1: Negative Reviewed, dictated and finalized at location []
--- OUTSIDE RECORDS SUMMARY | 2024-10-17 08:30 | XMS_ITS | Encounter Summary ---
Author Organization [facility] Healthcare Address [address] [place] [address] Care Team Providers Care Floor Worker Transfer [place] Name Role Phone Patito Gaitan MD Primary Care Provider [phone]- [phone] Reason for Visit * Reason Onset Date Comments Trelegy cost 10/13/2024 Encounter Details Date Type Department Care Team (Late st Contact Info) Description 10/13/2024 Telephone [facility] Pulmonary at [address] [place] [address] Leena Pagan LPN Trelegy cost Social History Tobacco Use Types Packs/Day Years Used Date Smoking Tobacco: Every Day Cigarettes 1 42.5 Started: 04/09/1982 Comments Unknown Sex and Gender Information Value Date Recorded Sex Assigned at Not on file Legal Sex Female 9:03 AM 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 Gender Identity Not on file Sexual Orientation Not on file documented as of this encounter Ordered Prescriptions Prescription Sig Dispense Quantity Refills Last Filled Start Date End Date umeclidinium-vilan teroL (Anoro Ellipta) 62.5-25 mcg/actuation blister with deviceIndications: COPD with acute exacerbation (HCC) Inhale 1 puff daily 1 each 11 10/17/2024 11/16/2024 budesonide-glycopy r-formoterol (BREZTRI) 160-9-4.8 mcg/actuation inhaler Inhale 2 puffs 2 (two) times a day 10.7 g 3 10/13/2024 10/17/2024 documented in this encounter Miscellaneous Notes * Addendum Note - Leena Pagan LPN - 10/17/2024 8:09 AM CDTAddended by: LEENA PAGAN on: 10/17/2024 08:09 AM Modules accepted: Orders * Telephone Encounter - Leena Pagan LPN - 10/17/2024 8:08 AM CDT Unable to reach patient by phone. LVM letting patient know that medication was sent into her pharmacy today. * Telephone Encounter - Leena Pagan LPN - 10/16/2024 5:03 PM CDT Spoke with Lydia by phone and gave providers response. Lydia said that the 3m Breztri is not going to be affordable neither. Patient said that really the Anoro worked for her in the past and since she knows she has tried that she would rather go back to that one if Dr Goodwin is okay with prescribing that one for her? I told her I would leave a message for provider to review. * Telephone Encounter - Leena Pagan LPN - 10/13/2024 4:29 PM CDT No answer, left voicemail asking for return call back. * Telephone Encounter - Leena Pagan LPN - 10/13/2024 3:25 PM CDT Patient called into the office and said that her Trelegy is not affordable. Patient said that its over 261.00 with insurance. I suggested patient to contact her ins to see what other meds might be inthe drug class that might be more affordable? Patient said that she was told to call the office if this was not affordable so that something else could be called in for her. documented in this encounter Plan of Treatment Not on file documented as of this encounter Visit Diagnoses Diagnosis COPD with acute exacerbation (HCC)- Primary documented in this encounter Discontinued Medications Medication Sig Discontinue Reason Start Date End Da te ekpoilkmbom-lodnfdwci-ae lanter (Trelegy Ellipta) 100-62.5-25 mcg inhaler Inhale 1 puff daily Alternate therapy 10/09/2024 10/13/2024 xthtyyooon-bflpnkgm-qyob oterol (BREZTRI) 160-9-4.8 mcg/actuation inhaler Inhale 2 puffs 2 (two) times a day Alternate therapy 10/13/2024 10/17/2024 documented as of this encounter Care Teams Floor Worker Transfer [place] Relationship Specialty Start Date End Date Patito Gaitan MD [address] [place] [address] [place] [address] PCP - General Nurse Practitioner 03/11/24 documented as of this encounter
--- OUTSIDE RECORDS SUMMARY | 2024-10-17 08:30 | XMS_ITS | Encounter Summary ---
Author Organization [facility] Healthcare Address [address] [place] [address] Care Team Providers Care Overhead Crane Operator Name Role Phone Patito Gaitan MD Primary Care Provider [phone]- [phone] Encounter Details Date Type Department Care Team ([facility] st Contact Info) Description 10/13/2024 Results Follow-Up [facility] Group Pulmonary at [address] [place] [address] Quang Goodwin, [address] [place] [address] X-ray chest 2 views Social History Tobacco Use Types Packs/Day Years Used Date Smoking Tobacco: Every Day Cigarettes 1 42.5 Started: 04/09/1982 Comments Unknown Sex and Gender Information Value Date Recorded Sex Assigned at Not on file Legal Sex Female 9:03 AM COPRA PROCESSOR Gender Identity Not on file Sexual Orientation Not on file documented as of this encounter Plan of Treatment Not on file documented as of this encounter Visit Diagnoses Not on filedocumented in this encounter Care Teams Overhead Crane Operator Relationship Specialty Start Date End Date Patito Gaitan MD [address] [place] [address] PCP - General Nurse Practitioner 03/11/24 documented as of this encounter
--- OUTSIDE RECORDS SUMMARY | 2024-10-17 08:30 | XMS_ITS | Clinical Summary ---
Author Organization [facility] Address [address] [place] [address] Care Team Providers Care Machinist Name Role Phone Abel Willard MD Primary Care Provider [phone] Source Comments [facility],non-owned Affiliates and Associated Physician Practices is amultiple site organization consisting of ambulatory clinics and hospital sitesin [place], [place], [place] and [place]. This disclosure is being madepursuant to the Care Everywhere program and may not contain all information available regarding this patient. Last updated 18.[facility] Allergies Active Allergy Reactions Criticality Noted Date [...] drink = 0.6 oz p ure alcohol) Comments Unknown Sex and Gender Information Value Date Recorded Sex Assigned at Not on file Legal Sex Female 6:35 PM MARKETING REGIONAL CONSULTANT Gender Identity Not on file Sexual Orientation [...] 9:51 AM CDT Height 167.6 cm (5' 6) 02/10/2013 9:51 AM CDT Body Mass Index [...] FLEX SIG - COLON CA SCREENING 1962 HIV SCREENING 1977 DTAP/TDAP/TD VACCINES (1 - Tdap) 1981 PNEUMOCOCCAL VACCINE 50+ (1 of 2 - PCV) 1981 ZOSTER VACCINE (1 of 2) 02/04/2012 HEPATITIS B VACCINE (1 of 3 - Risk 3-dose series) 2022 Respiratory Syncytial Virus (RSV) Vaccine Pt: or over 60 yrs (1 - Risk 60-74 years 1-dose series) 2022 COVID-19 VACCINE (4 - 2023-2 5 season) 2024 04/21/2021, 08/29/2020, 08/07/2020 DEPRESSION SCREENING 05/07/2024 MAMMOGRAM 02/28/2025 02/28/2023 PAP SMEAR 01/18/2026 01/18/2023 LIPID TESTING 03/06/2029 03/06/2024 HEPATITIS C SCREENING Completed 09/29/2021 INFLUENZA VACCINE Completed 03/06/2024 HIB VACCINE Aged Out No longer eligi ble based on patient's age to complete this topic HPV VACCINE Aged Out No longer eligi ble based on patient's age to complete this topic MENINGOCOCCAL (Group B) VACCINE SHARED DECISION-MAKING Aged Out No longer eligible based on patient's age to complete this topic MENINGOCOCCAL GROUPS A/C/Y/W VACCINE Aged Out No longer eligible b ased on patient's age to complete this topic Care Teams Machinist Relationship Specialty Start Date End Date Abel Willard MD [address] [place] [address] PCP - General 11/08/10
--- OUTSIDE RECORDS SUMMARY | 2024-10-17 08:31 | XMS_ITS | Clinical Summary ---
Author Organization [facility] Medical Office Building B Address [address] [place] [address] Care Team Providers Care Screwdown Operator Name Role Phone Patito Gaitan MD Primary Care Provider [phone]- [phone] Allergies Active Allergy Reactions Criticality Noted Date Comments Codeine Rash Medium 08/05/2012 Penicillin G Rash Medium 08/05/2012 Medications amLODIPine (NORVASC) 5 mg tablet Take 2 tablets (10 mg total) by mouth daily 04/02/20 24 Active buPROPion XL (WELLBUTRIN XL) 150 mg 24 hr tablet Take 1 tablet (150 mg total) by mouth daily 03/06/20 24 Active hydrALAZINE (APRESOLINE) 50 mg tablet Take 1 tablet (50 mg total) by mouth 2 (two) times a day 03/20/20 24 Active hydroCHLOROthiaz catalino (HYDRODIURIL) 25 mg tablet Take 1 tablet (25 mg total) by mouth gas or water meter installer before breakfast 03/20/20 24 Active losartan-hydroCH LOROthiazide (HYZAAR) 100-12.5 mg per tablet Take 1 tablet by mouth daily 03/20/20 24 Active metoprolol XL (TOPROL-XL) 25 mg extended release tablet Take 1 tablet (25 mg total) by mouth daily 03/20/20 24 Active pravastatin (PRAVACHOL) 20 mg tablet Take 2 tablets (40 mg total) by mouth daily 03/06/20 24 Active ursodioL (ACTIGALL) 300 mg capsule Take 2 capsules (600 mg total) by mouth 2 (two) times a day 03/27/20 23 Active fluticasone propionate (FLONASE) 50 mcg/actuation nasal spray Administer 2 sprays into each nostril daily 10/28/19 24 Active albuterol HFA (PROVENTIL HFA,VENTOLIN HFA,PROAIR HFA) 90 mcg/actuation inhaler Inhale 2 puffs every 4 (four) hours as needed for shortness of breath or wheezing 18 g 11 10/10/19 25 Active umeclidinium-yaquelin anteroL (Anoro Ellipta) 62.5-25 mcg/actuation blister with deviceIndication s:COPD with acute exacerbation (HCC) Inhale 1 puff daily 1 each 10/18/19 25 025 Active albuterol HFA (PROVENTIL HFA,VENTOLIN HFA,PROAIR HFA) 90 mcg/actuation inhaler Inhale 2 puffs every 4 (four) hours as needed 03/06/20 24 025 Discontinu ed(Reorder ) umeclidinium-yaquelin anteroL (Anoro Ellipta) 62.5-25 mcg/actuation blister with device Inhale 1 puff once 03/20/20 24 025 Discontinu ed(Alterna te therapy) Airsupra 90-80 mcg/actuation HFA aerosol inhaler Inhale 2 puffs every 4 (four) hours as needed 04/28/20 24 025 Discontinu ed(Alterna te therapy) predniSONE (DELTASONE) 20 mg tablet Take 2 tablets (40 mg) by mouth daily for 5 days 10 tablet 10/10/19 25 025 doxycycline (VIBRAMYCIN) 100 mg capsule Take 1 tablet/capsule (100 mg total) by mouth 2 (two) times a day for 5 days 10 tablet/capsu le 10/10/19 25 025 fluticasone-umec lidin-vilanter (Trelegy Ellipta) 100-62.5-25 mcg inhaler Inhale 1 puff daily 1 each 10/10/19 25 025 Discontinu ed(Alterna te therapy) budesonide-glyco pyr-formoterol (BREZTRI) 160-9-4.8 mcg/actuation inhaler Inhale 2 puffs 2 (two) times a day 10.7 g 3 10/14/19 25 025 Discontinu ed(Alterna te therapy) Active Problems Problem Noted Date Diagnosed Date Pulmonary nodules 07/11/2024 Tobacco use 07/11/2024 Chronic bronchitis, unspecified chronic bronchit is type 07/08/2024 Encounters Date Type Department Care Team Description 10/13/2024 Telephone [facility] Pulmonary at [address] [place] [address] Leena Oliver LPN Trelegy cost 10/13/2024 Results Follow-Up [facility] Pulmonary at [address] [place] [address] Quang Goodwin DO X-ray chest 2 views 10/09/2024 11:24 AM CDT - 10/09/2024 11:59 PM CDT Hospital Encounter [facility] [address] [place] [address] COPD with acute exacerbation (HCC) Discharge Disposition: Discharge to home or self care 10/09/2024 11:15 AM CDT Office Visit [facility] Pulmonary at [address] [place] [address] Quang Goodwin DO COPD with acute exacerbation (HCC) (Primary Dx); Pulmonary nodules; Tobacco use from Last 3 Months Medical History Medical [...] Every Day Cigarettes 1 42.5 Started: 04/09/1982 Tobacco Cessation:Ready to Q uit: Not Asked; Counseling Given: Not Answered Comments Unknown Sex and Gender Information Value Date Recorded Sex Assigned at Not on file Legal Sex Female 9:03 AM COMBAT CONTROL Gender Identity Not on file Sexual Orientation Not on file Obstetrics History Last Filed Vital Signs Vital Sign Reading Time Taken Comments Blood Pressure 122/79 10/09/2024 10:31 AM CDT Pulse 82 10/09/2024 10:31 AM CDT Temperature 36.6 C (97.8 F) 10/09/2024 10:31 AM CDT Respiratory Rate 18 10/09/2024 10:31 AM CDT Oxygen Saturation 95% 10/09/2024 10:31 AM CDT Inhaled Oxygen Concentration - - Weight 101.6 kg (224 lb) 10/09/2024 10:31 AM CDT Height 165.1 cm (5' 5) 10/09/2024 10:31 AM CDT Body Mass Index 37.28 10/09/2024 10:31 AM CDT Plan of Treatment Health Maintenance [...] Procedure Name Priority Date/Time Associated Diagnosis Comments XR CHEST PA LATERAL 2 VIEWS Schedule CECILIA, Read CECILIA (Appt Today, Awaiting Results) 10/09/2024 11:34 AM CDT COPD with acute exacerbation (HCC) from Last 3 Months Results * X-ray chest 2 views (10/09/2024 11:34 AM CDT) Anatomical Region Laterality Modality Body, Chest N/A Computed Radiogr aphy 10/09/2024 8:26 PM CDT Narrative 10/09/2024 8:26 PM CDT EXAM DESCRIPTION: XR CHEST PA LATERAL 2 VIEWS REASON FOR STUDY: Shortness of breath Cough, congestion, sob x 2 weeks Productive cough - yellow Copd Smoker Sleep apnea Htn - controlled with medication No surgeries per pt TECHNIQUE: Frontal and lateral radiographic views of the chest were acquired. COMPARISON: None Available FINDINGS: LUNGS/PLEURA: There is no focal infiltrate or evidence of pneumothorax. No significant pleural effusion. HEART/MEDIASTINUM: The heart size is normal. Normal mediastinal and hilar contours. LINES/TUBES: None. BONES: No acute findings. OTHER: No other significant finding. IMPRESSION: No acute cardiopulmonary abnormality. THIS IS AN ELECTRONICALLY VERIFIED FINAL REPORT 10/09/2024 8:26 PM - Electronically signed by Anibal Singh M.D. RW: CLEMENT Report ID: [id number] Reading Location: [id number] Procedure Note Anibal Singh MD - 10/09/2024 EXAM DESCRIPTION: XR CHEST PA LATERAL 2 VIEWS REASON FOR STUDY: Shortness of breath Cough, congestion, sob x 2 weeks Productive cough - yellow CopdSmoker Sleep apnea Htn - controlled with medication No surgeries per pt TECHNIQUE: Frontal and lateral radiographic views of the chest wereacquired. COMPARISON: None Available FINDINGS: LUNGS/PLEURA: There is no focal infiltrate or evidence of pneumothorax.No significant pleural effusion. HEART/MEDIASTINUM: The heart size is normal. Normal mediastinal and hilar contours. LINES/TUBES: None. BONES: No acute findings. OTHER: No other significant finding. IMPRESSION: No acute cardiopulmonary abnormality. THIS IS AN ELECTRONICALLY VERIFIED FINAL REPORT 10/09/2024 8:26 PM - Electronically signed by Anibal Singh M.D. RW: CLEMENT Report ID: [id number] Reading Location: [id number] Quang Goodwin DO IMG XR PROCEDURES Final R esult from Last 3 Months Insurance [employer] III OPEN ACCESS Care Teams Screwdown Operator Relationship Specialty Start Date End Date Patito Gaitan MD [address] [address] PCP - General Nurse Practitioner 03/11/24
--- OUTSIDE RECORDS SUMMARY | 2024-10-17 08:31 | XMS_ITS | Referral Summary ---
Author Organization [facility] Building B Address [address] [place] [address] Care Team Providers Care Locket Maker Name Role Phone Patito Gaitan MD Primary Care Provider +1- [phone] Encounters Date Type Department Care Team Description 10/13/2024 Telephone [facility] Pulmonary at [address] [place] [phone] Leena Oliver LPN Trelegy cost 10/13/2024 Results Follow-Up [facility] Pulmonary at [address] [place] [address] Quang Goodwin DO X-ray chest 2 views 10/09/2024 11:24 AM CDT - 10/09/2024 11:59 PM CDT Hospital Encounter [facility] [address] [place] [address] COPD with acute exacerbation (HCC) Discharge Disposition: Discharge to home or self care 10/09/2024 11:15 AM CDT Office Visit [facility] Pulmonary at [address] [place] [address] Quang Goodwin DO COPD with acute exacerbation (HCC) (Primary Dx); Pulmonary nodules; Tobacco use from Last 3 Months Allergies Active Allergy [...] 1 tablet (25 mg total) by mouth early childhood education coordinator before breakfast 03/20/20 Active losartan-hydroCH LOROthiazide (HYZAAR) 100-12.5 mg per [...] Inhale 1 puff daily 1 each 10/18/19 Active albuterol HFA (PROVENTIL HFA,VENTOLIN HFA,PROAIR HFA) [...] inhaler Inhale 1 puff daily 1 each 11 10/10/19 25 025 Discontinu ed(Alterna te therapy) [...] on file Legal Sex Female 9:03 AM FIRE WARDEN Gender Identity Not on file Sexual Orientation [...] 10/09/2024 10:31 AM CDT Plan of Treatment Not on file Procedures [...] Anibal Singh M.D. RW: CLEMENT Report ID: [id number] Reading Location: [id number] Procedure Note Anibal Singh MD - 10/09/2024 [...] Anibal Singh M.D. RW: CLEMENT Report ID: [id number] Reading Location: [id number] Quang Goodwin DO IMG XR PROCEDURES Final R esult from Last 3 Months Insurance [employer] OPEN ACCESS Member Subscriber Plan / Payer (Ef fective 2019-Present) Name:Lexi Morrison Relation to Subscriber:Self Name:Lexi Morrison Payer ID:[id number] Group ID:[id number] Type:[employer] HMO/PPO Address: [facility] [id number] [place] [id number] Care Teams Locket Maker Relationship Specialty Start Date End Date Patito Gaitan MD [address] [address] PCP - General Nurse Practitioner 03/11/24
--- OUTSIDE RECORDS SUMMARY | 2024-10-17 08:31 | XMS_ITS | Data Portability ---
Author Organization [place] [facility] [employer], Main Office Address [address] [place] [address] Assessment Encounter Date Assessment Date Assessment LastModified [...] Nicotine cessation counseling provided for 4 minutes. Carbon for quitting nicotine include getting ready, getting [...] in Quit For Life program Registering at [email or web address].Tabber Making a call to 1-069-VAML-NOW ( ). A strong, clear, personalized message [...] failure or relapse. Patient can enroll in [facility]'s smoking cessation class through Trudy Smith RN at . Enrollment is free and classes are held every sunday of the month from 1:30 pm to 2:30 pm at the conference room next to the cafeteria on the ground floor. The [employer] [employer] recommends annual screening for lung cancer with low-dose computed tomography (LDCT) for people aged 50 to 80 years old who smoke or formerly smoked and have a 20-year or greater pack-year history. Screening is no longer discontinued even when a person has not smoked for 15 years. LDCT ordered. Cough/Dyspnea workup will be done as follows: Respiratory allergen panel for [facility] Serum IgE Serum total IgG, IgG1, IgG2, IgG3, IgG4 Pilkc-1-fkygszarbu n phenotype and level TB stimulated gamma [...] alpha-1-ant itrypsin (aat) phenotype, serum [address] [facility] (Lab), [address] [place], [address], 4 11:15:54 BNP (B-type natriuretic peptide), serum or plasma [address] [facility] (Lab), [address] [place], [address], 4 15:27:00 ige, total, serum [email or web address] [facility] (Lab), [address] [place], [address], 4 14:14:34 tb (M tuberculosi s), ifn-gamma rosaline, blood [email or web address] [facility] (Lab), [address] [place], [address], 4 14:14:35 eosinophil count, manual, blood (OBS) [email or web address] [place] [address] (Lab), [address] [place], [address], 4 14:14:35 igg subclasses 1+2+3+4, serum [facility] [facility] ([facility] [address] [place], [address], 4 14:14:35 respiratory allergen panel - [facility] a [address] (Lab), [address] [place], [address], 4 14:14:35 respiratory allergen panel - [facility] b 2023 [address]24 [place] [address] [facility] (Lab), [address] [place], [address], 4 14:14:35 Referral None recorded. Procedures None recorded. Surgeries None recorded. Imaging LDCT, chest, for lung cancer screening - Nicotine smoke: 1 ppd 1981-presen t = 42 pack years; no auth required 2023 024 [facility] [address] [place] [address] ([employer]), [address] [place], [address], 4 09:09:39 Medication Orders albuterol sulfate HFA 90 mcg/actuati on aerosol inhaler 2023 [id number], [address] [place], [place], [id number], 4 12:14:42 Anoro Ellipta 62.5 mcg-25 mcg/actuati on powder for inhalation 2023 024 [id number], [address], [place], [id number], 4 12:14:15 Patient TargetsNo targets recorded. Patient Instructions Encounter Date Encounter Id Patient Instructions Last Modified By Organization Details Last Modified Time 08/21/2023 [id number] complete PFT w/ post bronchodilator spirometry* - no auth required [email or web address] Not available 09/04/2023 09:09:42 Reason for Referral None Reported. Results Created Date Observation Date Name Description Value Unit Range Abnormal Flag Note LastModifiedBy Organization Detail LastModifiedTime Result Notes None recorded. Problems Name Problem SNOMED Code Status Onset Date Resolution Date Notes Provider Name and Address Organization Details Recorded Time Smoker 73419994 Active 2023 Taurus Gallagher MD [address] [facility], [address], [address], [facility] 4 12:06:11 Severe chronic obstructive pulmonary disease 250297229 Active 2023 Taurus Gallagher MD [address] [facility], [address], [address], [facility] 4 12:09:21 Notes:Medical History: Depre ssion Eosinophils [...] Name and Address Organization Details Recorded Time 70052 codeine medicatio n rash Not available Not available 08/10/2023 2670 RxNorm Taurus Gallagher MD [address] [facility], [address], [address], [facility] 4 12:27:11 [address] penicilli n G Not available rash Not available Not available 08/10/2023 7980 RxNorm Taurus Gallagher MD [address] [facility], [address], [address], [facility] 4 12:27:22 Medications Name Sig Start Date [...] Address Organization Details Last Updated DateTime 4 [address].9 5 g 34.9 kg/m2 167.64 cm 90 /min 90 % 90 % 98 [degF] 118 mm[Hg] 74 mm[Hg] Brianna PosadaMARIA L [place] [facility] [facility] 11:20:35 Social History Question Answer Notes LastModified by [employer] Details LastModified Time Tobacco Smoking Status Current Every Day Smoker Brianna Posada CMA null, MARGOT - [place] [facility] 08/21/2023 11:25:50 What Is Your Level Of Caffeine Consumption? Moderate Coffee [email or web address] Information not available 08/21/2023 What Type Of Diet Are You Following? REGULAR [email or web address] Information not available 08/21/2023 Do You Have A Humidifier? No [email or web address] Information not available 08/21/2023 Do You Have Any Pets? Yes 2 Cats [email or web address] Information not available 08/21/2023 Do You Use Your Seat Belt Or Car Seat Routinely? Yes [email or web address] Information not available 08/21/2023 Do You Have Smoke And Carbon Monoxide Detectors In Your Home? Yes [email or web address] Information not available 08/21/2023 Are You Passively Exposed To Smoke? Yes [email or web address] Information not available 08/21/2023 Do You Use Sunscreen Routinely? Yes [email or web address] Information not available 08/21/2023 How Many Years Have You Smoked Tobacco? 40 [email or web address] Information not available 08/21/2023 Sex: Unknown Functional Status Question Answer Note LastModified by [facility] ion Details LastModified Time Do you use any illicit or recreational drugs? No [email or web address] Information not available 08/21/2023 What is your level of alcohol consumption? Moderate [email or web address] Information not available 08/21/2023 Are you currently employed? Yes [email or web address] Information not available 08/21/2023 What is your occupation? [employer] [place] [email or web address] Information not available 08/21/2023 What is your exercise level? Occasional Information not available 08/21/2023 Mental Status Question Answer Note LastModified by Organization D etails LastModified Time Do you feel stressed (tense, restless, nervous, or anxious, or unable to sleep at night)? BO54800-5 [email or web address] Information not available 08/21/2023 Family History Relationship Description Onset Age of this Age Resolved Age Notes LastModified by Organization Details LastModified Time Father Chronic obstructive pulmonary disease Not available 2023 11:24:13 Father Heart disease [email or web address] Not available 2023 12:03:44 Father Disease of liver [email or web address] Not available 2023 12:03:51 Brother Diabetes mellitus [email or web address] Not available 2023 11:24:29 Brother Malignant tumor [...] SNOMED-CT Code Diagnosis ICD10 Code Diagnosis Note [id number] Taurus Gallagher MD [facility] Pulmonolo gy [address] [address] 08/21/2023 10:40:57 08/22/2023 08:22:39 Smoker 10602699 F17.218 F17.219 Z87.891 Dyspnea on exertion 6084 5006 R06.09 R05.9 T78.40XA D89.9 Severe chr onic obstructive pulmonary disease 431356767 J44.9 Health Concerns Section Related Observation LastModified by Organization Detai ls LastModified Time None Recorded Concern Status LastModified by Organization Details LastModified Time None Recorded Advance Directives Directive None Recorded Payers Insurance Date Sequence Insurance Name Policy Number Policy Ferrell Covered Member ID Ferrell Member ID Guarantor Name 08/21/2023 1 *SELF PAY* Claire Morrison 08/21/2023 1 [employer] Lexi Morrison [id number] Lexi Morrison Notes Date Note Type Note [...] time Alleviating factors: rest Modified [employer] [place] (mMRC) Dyspnea Scale - Grade 1 Grade [...] 1 ppd 1981-present = 42 pack years [place]: no Dye: no Dust mites: yes Mold: no Damp basement: no Wood burning stove: no Animal dander: cats Cockroaches: no Pollen: yes Arsenic: no Asbestos: no Beryllium: no Cadmium: no Chromium: no Bradley smoke: no Diesel fumes: no Nickel: no [...] slight chance of dozing. Taurus Gallagher MD [address] [place] [address], [place] [address], [place], [address], [facility] 08/21/2023 12:19:02 OBGyn Episode No OBEpisode recorded.
== END 2024-10-17 08:27 | disposition home or self-care (01) ==
PROVIDERS: PCP Nurse Practitioner; Visit Provider Nurse Practitioner
DX: Z12.31 Encounter for screening mammogram for malignant neoplasm of breast (principal); Z78.0 Asymptomatic menopausal state; M85.88 Other specified disorders of bone density and structure, other site; M85.852 Other specified disorders of bone density and structure, left thigh; M85.851 Other specified disorders of bone density and structure, right thigh
CPT/HCPCS: 77063; 77067; 77080

== ENCOUNTER 2025-04-06 16:02 | Emergency (ER) | payer OTHER, SELFPAY ==
--- NOTE | ~2025-04-06 | XR_ITS ---
EXAMINATION: XR chest 2V, 04/06/2025 16:35 DIRECTOR PEDIATRIC HISTORY: SOB COMPARISON: No comparisons available. Technique: 2 views obtained. Findings: The lungs are clear, no effusion. No pneumothorax. Heart is normal size. Mediastinal and hilar contours are within normal limits. Bony thorax no acute abnormality. Impression: No acute cardiopulmonary abnormality. Reviewed, dictated and finalized at location P. CTOR PEDIATRIC Impression: No acute cardiopulmonary abnormality.
--- NOTE | 2025-04-06 16:05 | ECG_ITS ---
Test Date: 2025-04-06 16:22:32 Measurements Intervals [place] Rate: 65 P: 59 OK: 156 QRS: 37 QRSD: 94 T: 69 QT: 415 QTc: 432 Interpretive Statements SINUS RHYTHM CANNOT R/O SEPTAL INFARCT, AGE INDETERMINATE BASELINE ARTIFACT- I, II, III, AVR, AVL, AVF, V3-V6 ABNORMAL ECG No previous ECG available for comparison Electronically Signed On 04-06-2025 18:19:31 RELIEF SALESPERSON by David Haas D.O.
[2025-04-06 16:06] VITALS: BP 199/86; PULSE 72; RESP 18; O2SAT 96
--- OUTSIDE RECORDS SUMMARY | 2025-04-06 16:43 | XMS_ITS | Clinical Summary ---
Author Organization [facility] Address [address] [place] [address] Care Team Providers Care Blade Sharpener Name Role Phone Abel Willard MD Primary Care Provider [phone] Source Comments [facility],non-owned Affiliates and Associated Physician Practices is amultiple site organization consisting of ambulatory clinics and hospital sitesin [place], [place], [place] and [place]. This disclosure is being madepursuant to the Care Everywhere program and may not contain all information available regarding this patient. Last updated 18.[facility] Allergies Active Allergy Reactions Criticality Noted Date [...] on file Legal Sex Female 6:35 PM NURSING PROGRAM COORDINATOR Gender Identity Not on file Sexual Orientation [...] COLON CA SCREENING 1960 HIV SCREENING 1977 HEPATITIS C SCREENING 01/30/1980 DTAP/TDAP/TD VACCINES (1 - Tdap) 1981 PNEUMOCOCCAL VACCINE 50+ (1 of 2 - PCV) 1981 PAP with HPV 02/04/1992 Respiratory Syncytial Virus (RSV) Vaccine Pt: or over 60 yrs (1 - Risk 50-74 years 1-dose series) 02/04/2012 ZOSTER VACCINE (1 of 2) 02/04/2012 HEPATITIS B VACCINE (1 of 3 - Risk 3-dose series) 2022 DEPRESSION SCREENING 05/07/2024 COVID-19 VACCINE (4 - 2024-2 6 season) 2025 04/21/2021, 08/29/2020, 08/07/2020 INFLUENZA VACCINE (#1) 2025 03/06/2024 MAMMOGRAM 02/28/2025 02/28/2023 Cervical Cancer Screening 01/18/2026 PAP SMEAR 01/18/2026 01/18/2023 LIPID TESTING 03/06/2029 03/06/2024 HIB VACCINE Aged Out No longer [...] age to complete this topic Care Teams Blade Sharpener Relationship Specialty Start Date End Date Abel Willard MD [address] [place] [address] PCP - General 11/08/10
--- OUTSIDE RECORDS SUMMARY | 2025-04-06 16:43 | XMS_ITS | Encounter Summary ---
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 Legal Sex Female 3:57 PM CDT Gender Identity Female 09/22/2024 10:59 AM CDT Sexual Orientation Not on file documented as of this encounter Plan of Treatment Upcoming Encounters Date Type Department Care Team (Late st Contact Info) Description 09/07/2025 8:20 AM CDT Office Visit [facility] [address] [phone] Patito Gaitan NP [address] [place] [address] 09/07/2025 12:00 PM CDT Office Visit [facility] [address] [place] [address] Regan Costa MD [facility], [address] [place] [address] documented as of this encounter Visit Diagnoses Not on filedocumented in this encounter Additional Health Concerns Assessment Noted Time PHQ-9 Depression Total Score: 4 11/14/19 23 3:06 PM CDT documented as of this encounter Care Teams Offset Lithographic Press Operator Relationship Specialty Start Date End Date Patito Gaitan NP [address] [place] [address] PCP - General NURSE PRACTITIONER 09/08/21 documented as of this encounter
--- OUTSIDE RECORDS SUMMARY | 2025-04-06 16:43 | XMS_ITS | Encounter Summary ---
Author Organization [facility] Healthcare Address [address] [place] [address] Care Team Providers Care Public Utilities Sales Representative Name Role Phone Patito Gaitan MD Primary Care Provider [phone]- [phone] Encounter Details Date Type Department Care Team ([facility] st Contact Info) Description 04/01/2025 Results Follow-Up [facility] Pulmonary at [address] [place] [address] Quang Goodwin, [address] [place] [address] CT Lung Cancer Screening Social History Tobacco Use Types Packs/Day Years Used Date Smoking Tobacco: Every Day Cigarettes 1 43 Started: [birth year]09[birth year]1982 AUDIT-C Answer Date Recorded Q1: How often do you have a drink containing alcohol? 4 or more times a week 11/20/2024 Q2: How many drinks containi ng alcohol do you have on a typical day when you are drinking? 1 or 2 Q3: How often do you have si x or more drinks on one occasion? 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
--- OUTSIDE RECORDS SUMMARY | 2025-04-06 16:43 | XMS_ITS | Encounter Summary ---
Author Organization [facility] Address [facility] [place] [address] Care Team Providers Care End Polisher Name Role Phone Patito Gaitan NP Primary Care Provider [phone] Encounter Details Date Type Department Care Team (Late st Contact Info) Description 09/27/2021 Replay Solutionst Message Enc [facility] Family Medicine [facility] [address] [facility] [address] [place] [phone] Patito Gaitan, SANTO [address] [place] [address] [place] [address] follow up on blood pressure Social History [...] Sex Assigned at Female 05/20/2024 8:19 AM 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 Legal Sex Female 3:57 PM CDT Gender Identity Female 09/22/2024 10:59 AM CDT Sexual Orientation Not on file COVID-19 Exposure [...] Description 09/07/2025 8:20 AM CDT Office Visit [facility] Family Medicine - [place] [address] [facility] [address] [place] [address] Patito Gaitan NP [address] [place] [address] [place] [address] 09/07/2025 12:00 PM CDT Office Visit [facility] [address] [place] [address] Regan Costa MD [facility], [address] [place] [address] documented as of this encounter Visit Diagnoses Not on filedocumented in this encounter Care Teams End Polisher Relationship Specialty Start Date End Date Patito Gaitan NP [address] [place] [address] [place] [address] PCP - General NURSE PRACTITIONER 09/08/21 documented as of this encounter
--- OUTSIDE RECORDS SUMMARY | 2025-04-06 16:43 | XMS_ITS | Encounter Summary ---
Author Organization [facility] Address [address] [place] [address] Care Team Providers Care Soup Mixer Name Role Phone Patito Gaitan NP Primary Care Provider [phone] Encounter Details Date Type Department Care Team (Late st Contact Info) Description 01/26/2025 [facility] Enc [facility], [facility] [address] [place], [place] [phone] Coreen Felton, ANP-BC [facility]. [facility] [address] [place], [place] [phone] Test Results Social History Tobacco Use Types Packs/Day Years [...] Sex Assigned at Female 05/20/2024 8:19 AM MINING DETAIL DRAFTSPERSON Legal Sex Female 3:57 PM CDT Gender Identity Female 09/22/2024 10:59 AM CDT Sexual Orientation Not on file documented as of this encounter Plan of Treatment Upcoming Encounters Date Type Department Care Team (Late Contact Info) Description 09/07/2025 8:20 AM CDT Office Visit [facility] Family Medicine - [place] [address] [place] [address] [address] [place] [address] Patito Gaitan NP [address] [place] [address] 09/07/2025 12:00 PM CDT Office Visit [facility] [address] [place] [address] Regan Costa MD [facility], [address] [place] [address] documented as of this encounter Visit Diagnoses Not on filedocumented in this encounter Additional Health Concerns Assessment Noted Time PHQ-9 Depression Total Score: 4 11/14/19 23 3:06 PM CDT documented as of this encounter Care Teams Soup Mixer Relationship Specialty Start Date End Date Patito Gaitan NP [address] [place] [address] PCP - General NURSE PRACTITIONER 09/08/21 documented as of this encounter
--- OUTSIDE RECORDS SUMMARY | 2025-04-06 16:43 | XMS_ITS | Encounter Summary ---
Author Organization [facility] Address [facility] [place] [address] Care Team Providers Care Burning Plant Operator Name Role Phone Patito Gaitan NP Primary Care Provider [phone] Encounter Details Date Type Department Care Team (Late Contact Info) Description 01/23/2023 MyChart Message Enc [facility] [address] [phone] Patito Gaitan, SANTO [address] [place] [address] [place] [id number] [facility] Social History Tobacco [...] Sex Assigned at Female 05/20/2024 8:19 AM CUSTOMS IMPORT SPECIALIST Legal Sex Female 3:57 PM CDT Gender Identity Female 09/22/2024 10:59 AM CDT Sexual Orientation Not on file documented as of this encounter Plan of Treatment Upcoming Encounters Date Type Department Care Team (Late Contact Info) Description 09/07/2025 8:20 AM CDT Office Visit [facility] [address] [address] Patito Gaitan NP [address] [place] [address] 09/07/2025 12:00 PM CDT Office Visit [facility] [address] [place] [address] Regan Costa MD [facility], [address] [place] [address] documented as of this encounter Visit Diagnoses Not on filedocumented in this encounter Additional Health Concerns Assessment Noted Time PHQ-9 Depression Total Score: 4 11/14/19 23 3:06 PM CDT documented as of this encounter Care Teams Burning Plant Operator Relationship Specialty Start Date End Date Patito Gaitan NP [address] [place] [address] PCP - General NURSE PRACTITIONER 09/08/21 documented as of this encounter
--- OUTSIDE RECORDS SUMMARY | 2025-04-06 16:43 | XMS_ITS | Encounter Summary ---
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 Legal Sex Female 3:57 PM CDT Gender Identity Female 09/22/2024 10:59 AM CDT Sexual Orientation Not on file documented as of this encounter Plan of Treatment Upcoming Encounters Date Type Department Care Team (Late Contact Info) Description 09/07/2025 8:20 AM CDT Office Visit [facility] [address] [facility] [address] [place] [id number] Patito Gaitan NP [address] [place] [address] 09/07/2025 12:00 PM CDT Office Visit [facility] [place] [facility] [address] [place] [address] Regan Costa MD [facility], [address] [place] [address] documented as of this encounter Visit Diagnoses Not on filedocumented in this encounter Additional Health Concerns Assessment Noted Time PHQ-9 Depression Total Score: 4 11/14/19 23 3:06 PM CDT documented as of this encounter Care Teams Medical Clerk Relationship Specialty Start Date End Date Patito Gaitan NP [address] [place] [address] PCP - General NURSE PRACTITIONER 09/08/21 documented as of this encounter
--- OUTSIDE RECORDS SUMMARY | 2025-04-06 16:43 | XMS_ITS | Clinical Summary ---
Author Organization [facility] Address [address] [place] [address] Care Team Providers [facility] Author Name Role Phone Patito Gaitan NP Primary Care Provider [phone] Allergies Active Allergy Reactions Criticality Noted Date Comments Codeine Rash Medium 08/05/2012 Penicillin G Rash Medium 08/05/2012 Medications ursodiol (ACTIGALL) 300 MG capsule Take 2 capsules (600 mg total) by mouth 2 (two) times daily. 03/27/20 23 Active fluticasone propionate (FLONASE) 50 MCG/ACT nasal sprayIndications: Eustachian tube disorder, bilateral shake liquid and use 2 sprays in each nostril daily 16 g 1 10/28/19 24 Active umeclidinium-rick nterol (ANORO ELLIPTA) 62.5-25 MCG/ACT inhalerIndication s:Chronic obstructive pulmonary disease, unspecified COPD type (CMS/HCC HHS/HCC) 1 puff once. 03/20/20 24 Active Albuterol-Budeson catalino (AIRSUPRA) 90-80 MCG/ACT AerosolIndication s:Wheezing,Respir atory disorder, unspecified Inhale 2 puffs into the lungs every 4 (four) hours as needed (For shortness of breath or wheezing). 10.7 g 04/28/20 24 Active hydrALAZINE (APRESOLINE) 50 MG tabletIndications :Uncontrolled hypertension Take 1 tablet (50 mg total) by mouth 3 (three) times daily. 04/28/20 24 Active hydroCHLOROthiazi de (HYDRODIURIL) 25 MG tabletIndications :Uncontrolled hypertension TAKE 1 TABLET(25 MG) BY MOUTH EVERY MORNING 90 tablet 1 08/23/19 25 Active alendronate (FOSAMAX) 70 MG tabletIndications :Osteopenia after menopause Take 1 tablet (70 mg total) by mouth every 7 days. 4 tablet 5 11/06/19 25 Active meloxicam (MOBIC) 7.5 MG tabletIndications :Tendinitis Take 1 tablet (7.5 mg total) by mouth daily. 90 tablet 12/16/19 25 Active TRELEGY ELLIPTA 100-62.5-25 MCG/ACT AEROSOL POWDER, BREATH ACTIVATED Inhale 1 puff into the lungs daily. 11/21/19 25 Active amLODIPine (NORVASC) 10 MG tabletIndications :Uncontrolled hypertension Take 1 tablet (10 mg total) by mouth daily. 30 tablet 5 12/23/19 25 Active losartan-hydroCHL OROthiazide (HYZAAR) 100-12.5 MG tabletIndications :Uncontrolled hypertension Take 1 tablet by mouth daily. 90 tablet 1 12/30/19 25 Active albuterol sulfate HFA 108 (90 Base) MCG/ACT inhalerIndication s:Chronic obstructive pulmonary disease, unspecified COPD type (CMS/HCC HHS/HCC),Shortnes s of breath Inhale 2 puffs into the lungs every 4 (four) hours as needed for Wheezing or Shortness of breath. 17 g 3 03/09/20 25 Active rosuvastatin (CRESTOR) 20 MG tabletIndications :Hyperlipidemia, unspecified hyperlipidemia type Take 2 tablets (40 mg total) by mouth nightly at bedtime. 03/09/20 25 Active carvedilol (COREG) 12.5 MG tabletIndications :Primary hypertension TAKE 1 TABLET(12.5 MG) BY MOUTH TWICE DAILY 60 tablet 6 03/23/20 25 Active albuterol sulfate HFA 108 (90 Base) MCG/ACT inhalerIndication s:Chronic obstructive pulmonary disease, unspecified COPD type (CMS/HCC HHS/HCC),Shortnes s of breath INHALE 2 PUFFS INTO THE LUNGS EVERY 4 HOURS NEEDED FOR WHEEZING OR SHORTNESS OF BREATH 17 g 3 06/30/19 25 2024 Discontinued(R eorder) carvedilol (COREG) 12.5 MG tabletIndications :Essential hypertension Take 1 tablet (12.5 mg total) by mouth 2 (two) times daily. 60 tablet 3 12/23/19 25 2024 Discontinued rosuvastatin (CRESTOR) 20 MG tabletIndications :Hyperlipidemia, unspecified hyperlipidemia type Take 1 tablet (20 mg total) by mouth nightly at bedtime. 90 tablet 1 01/15/20 25 2024 Discontinued(R eokhadar) Active Problems Problem Noted Date Diagnosed Date Osteopenia of multiple sites 03/09/2025 Overview (03/09/2025): Pt had her DEXA scan done at [facility] on 10/17/24 that noted osteopenia in her lumbar spine at L1- L4 that is (-2.3.) She also has osteopenia to her left femoral neck (-1.4) osteopenia in her right femoral neck (-1.3). Right total hip is (-0.2). Patient is a long-term cigarette smoker so she is at high risk of continuing to progress into osteoporosis and menopausal. Does not exercise/lift weights. She will walk some. Is taking Fosamax and tolerating well. Assessment & Plan (03/09/2025 9:55 AM DISHWASHING MACHINE REPAIRER): Resume Fosamax. Repeat imaging in 2-3 years. Avoid smoking. Encourage weight-bearing exercise, such as walking or jogging, riding stationary bicycles, using rowing machines, or lifting weights, helps promote bone strength. A diet rich in calcium and vitamin D is important for bone development. Vitamin D is also gained from short exposure to sunlight each day. It is recommended at pt's age to consume 1200 mg of calcium per day and at least 800IU of Vtamin D daily or dose directed by provider. Tobacco use 07/11/2024 Overview (03/09/2025): 1PPD. Not ready to quit. Assessment & Plan (03/09/2025 9:50 AM DISHWASHING MACHINE REPAIRER): Encourage smoking cessation. Chantix pt did not tolerate and buspirone has also note helped her quit smoking. Pulmonary nodules 07/11/2024 Overview (03/09/2025): 03/26/24 CT lung cancer screen. Next screen is being ordered by her career development engineer. IMPRESSION: 1. LUNG-RADS category 2: Benign appearance [...] Chest in 12 months (on or around 03/26/2025 Assessment & Plan (03/09/2025 9:49 AM DISHWASHING MACHINE REPAIRER): Continue to follow up with pulmonology as directed. Encourage smoking cessation. Chantix pt did not tolerate and buspirone has also note helped her quit smoking. COPD (chronic obstructive pulmonary disease) Overview (03/09/2025): Uses Albuterol PRN and uses Trelegy daily. No recent hospitalizations for COPD exacerbation. Following with pulmonology every 6 months Assessment & Plan (03/09/2025 9:44 AM DISHWASHING MACHINE REPAIRER): Continue to follow with pulmonology as directed Assessment & Plan (04/28/2024 2:45 PM DISHWASHING MACHINE REPAIRER): Chronic condition not controlled at times. Will add on Airsupra for shortness of breath/wheezing. Discussed how to take and side effects. If still needing ot use more then twice a week to inform her career development engineer other recommendations. Pt aware of the importance of smoking cessation. Assessment & Plan (03/06/2024 10:13 AM CDT): Chronic condition. Requesting referral to Teodora Cuevas, SANTO career development engineer. Encourage smoking cessation. Hyperlipidemia, unspecified hyperlipidemia type 03/06/2024 Overview (03/09/2025): Chronic condition. Taking Rosuvastatin 20mg daily. Switched to rosuvastatin from pitavastatin d/t LDL not at goal with use. Will check lipid panel today fasting. Assessment & Plan (03/09/2025 9:26 AM DISHWASHING MACHINE REPAIRER): Chronic condition. Resume statin. Encourage following a healthy well balance diet. Limit saturated and trans fats. Encourage to get plenty of lean meats in your diet and grilled fish. Recommend eating at least 2 servings of fruits and vegetables per day. Encourage to limit sugar, processed foods, and large amount of carbohydrates Assessment & Plan (03/06/2024 9:34 AM CDT): Chronic condition. Resume statin. Encourage following a healthy well balance diet. Limit saturated and trans fats. Encourage to get plenty of lean meats in your diet and grilled fish. Recommend eating at least 2 servings of fruits and vegetables per day. Encourage to limit sugar, processed foods, and large amount of carbohydrates. Anxiety 03/06/2024 Overview (03/09/2025): Dong well with bupropion 150mg daily. Denies SI/HI Assessment & Plan (03/09/2025 9:40 AM DISHWASHING MACHINE REPAIRER): Chronic condition, controlled. No changes needed at this time. Assessment & Plan (03/06/2024 10:12 AM CDT): Chronic condition, controlled. No changes needed at this time. Menopausal syndrome (hot flashes) 03/06/2024 Overview (03/06/2024): Having mood swings she believes related to her hormones. Reports having menopasual hot flashes. Requesting referral to Dr. Finney to discuss. Assessment & Plan (03/06/2024 10:07 AM CDT): Referral placed her pt request for further discussion. Obesity (BMI 30-39.9) 03/06/2024 Assessment & Plan (03/09/2025 9:48 AM DISHWASHING MACHINE REPAIRER): Encourage diet and lifestyle changes to assist with weight loss. Assessment & Plan (05/19/2024 12:02 PM DISHWASHING MACHINE REPAIRER): Encourage diet and lifestyle changes to assist with weight loss. Assessment & Plan (03/06/2024 10:14 AM CDT): Encourage diet and lifestyle changes to assist with weight loss. Cigarette nicotine dependenc e with nicotine-induced disorder 09/15/2021 Overview (03/09/2025): residential cigarette smoker. Smokes 1 PPD. Cut back but increased again. Takes bupropion but has not helped her quit smoking. Lung cancer CT scan completed 04/01/24 and repeat in 12 months. Is following with pulmonology now Dr. Goodwin with [facility]. Her next lung cancer CT scan is already scheduled with them she tells me. Assessment & Plan (03/09/2025 9:43 AM DISHWASHING MACHINE REPAIRER): Encouraged smoking cessation. Patient however not ready to quit Assessment & Plan (11/17/2024 12:47 PM CDT): Highly encourage smoking cessation. Continue to follow up with pulm as directed. Assessment & Plan (04/14/2024 12:36 PM DISHWASHING MACHINE REPAIRER): Highly encourage smoking cessation. Continue to follow up with pulm as directed. Assessment & Plan (03/06/2024 10:13 AM CDT): Encourage smoking cessation. Not ready to quit. Primary hypertension 09/15/2021 Overview (03/09/2025): Chronic condition. Following with Dr. Costa now. Denies chest pain, palpitations, has chronic shortness of breath, dizziness, lightheadedness or lower extremity edema. Denies any orthopnea or PND. Is on multiple meds to include Amlodipine 10mg daily hydralazine 50mg TID now, losartan- HCTZ 100-12.5mg plus 25mg of HCTZ and Metoprolol 25mg daily. BP recently has been well controlled. Assessment & Plan (03/09/2025 9:47 AM DISHWASHING MACHINE REPAIRER): Chronic condition, controlled. No changes needed at this time. Continue to follow up with cardio as directed. Goal for BP to stay below 140/90. Encourage lifestyle modifications to include healthy eating, decrease salt and caffeine in diet, routine exercise, and weight loss. Assessment & Plan (11/17/2024 12:49 PM CDT): Chronic condition. Not controlled today. Pt to increase hydralazine to 50mg QID at this time. If not controlled with use then I will consider switching pt from HCTZ to chlorthalidone. Goal for BP to stay below 140/90. Encourage lifestyle modifications to include healthy eating, decrease salt and caffeine in diet, routine exercise, and weight loss. Highly entourage smoking cessation. . Will recheck BP at her lab appointment on 12/17/24 Assessment & Plan (10/06/2024 8:21 AM CDT): Chronic condition. Controlled today. N changes needed at this time Goal for BP to stay below 140/90. Encourage lifestyle modifications to include healthy eating, decrease salt and caffeine in diet, routine exercise, and weight loss. Highly entourage smoking cessation. . Assessment & Plan (05/19/2024 12:02 PM DISHWASHING MACHINE REPAIRER): Chronic condition not controlled yet. Med adjustment [...] encouraged. Assessment & Plan (04/28/2024 2:45 PM DISHWASHING MACHINE REPAIRER): Chronic condition not controlled yet. Med adjustment today. Pt to increase Hydralazine to TID at this time. Goal for BP to stay below 140/90. Encourage lifestyle modifications to include healthy eating, decrease salt and caffeine in diet, routine exercise, and weight loss, Encourage smoking cessation. Assessment & Plan (04/14/2024 1:24 PM DISHWASHING MACHINE REPAIRER): Pt is going to review her home med list to our med list and let me know if she is taking everythign as directed or not. She does not feel she is on everything yet that is on her current med list but is not able to tell me what she is taking. Pt will call in or send a VR1 message once she checks when she gets home. Med adjustment can be made once I know what she is actually taking. Goal for BP to stay below 140/90. Encourage lifestyle modifications to include healthy eating, decrease salt and caffeine in diet, routine exercise, and weight loss. Encourage smoking cessation Assessment & Plan (03/20/2024 1:02 PM DISHWASHING MACHINE REPAIRER): Will add on her other BP meds [...] exercise, and weight loss Primary biliary cholangitis 08/16/2016 Overview (03/09/2025): Was following with Dr. Rico. Was started on Ursodiol but has not taken since last year. Overdue for follow up. Pt drinks 3 oksana and cokes per night No intentions on wanting to quit. Has not had a colonoscopy. Denies any RUQ pain. Assessment & Plan (03/09/2025 9:48 AM DISHWASHING MACHINE REPAIRER): Encourage to schedule follow up with Dr. Rico.Highly encourage avoiding alcohol. Assessment & Plan (03/06/2024 10:07 AM CDT): Referral back to Dr. Rico placed. Resolved Problems Problem Noted Date Diagnosed Date Resolved Date Tendinitis 11/17/2024 03/09/2025 Assessment & Plan (11/17/2024 12:52 PM CDT): Symptoms just recently started so would tx for tendinitis. Resume compression sleeve and ICE. Will begin meloxicam (BP permitting). If develops severe pain, swelling to seek ER care. History of chest pain 03/06/20242024 Assessment & Plan (03/06/2024 10:12 AM CDT): Will refer to cardio as well d/t hx of chest pain and pt has multiple tavares issues that put her at risk of cardiovasulcar disease. Encounters Date Type Department Care Team Description 03/09/2025 9:20 AM DISHWASHING MACHINE REPAIRER Office Visit [address] [place] [id number] Patito Gaitan NP Annual (Patient presents for an adult routine exam) 03/09/2025 Results Follow-Up [address] [place] [id number] Patito Gaitan NP LIPID PANEL 03/09/[address] [place] [address] Patito Gaitan NP Record Request 03/09/2025 Travel 03/02/2025 12:15 PM CDT Office Visit [facility] [address] [place] [address] Regan Costa MD Hypertension (2-3mo) 03/02/2025 Travel 02/16/2025 2:50 PM CDT Allied Health/Nurse Visit [address] [place] [address] Patito Gaitan NP Imm/Inj 02/16/2025 Travel 01/26/2025 MyChart Message Enc [facility], [address] [place] [address] Coreen Felton, ANP-BC Test Results 01/22/2025 10:31 AM CDT - 01/22/2025 11:59 PM CDT Hospital Encounter [facility] [place] [address] Regan Costa MD Discharge Disposition: Home or Self Care (Routine Discharge) 01/22/2025 Results Follow-Up [facility] [address] [place], [place] [id number] Bethany Naranjo RN USE ECHOCARDIOGRAM W CON 01/22/2025 Travel 01/15/2025 Scan Cued HEALTH INFO SR[facility]CS Scanned, [facility] 01/08/2025 Results Follow-Up [address] [place] [address] Patito Gaitan NP TSH W/REFLEX, LIPID PANEL, HEMOGLOBIN, GLYCOSYLATED, Additional followed-up results: 2 01/06/2025 9:00 AM CDT Allied Health/Nurse Visit [address] [place] [address] Patito Gaitan NP Follow Up (Here for lab work) 01/06/2025 Travel from Last 3 Months Immunizations Immunization Administration Dates Next Due Fluzone (IIV3, Trivalent, 0. 5 ML Prefilled Syringe) 02/16/2025,03/06/2024 PFIZER COVID-19 (ORIGINAL FO RMULATION, PURPLE CAP) mRNA, LNP-S, PF, 30 MCG/0.3 ML DOSE 04/21/2021,08/29/2020,08/07/2020 Pneumococcal (Prevnar 20) 12/12/2022 Shingrix 03/12/2023,01/04/2023 Tdap (Adacel) 12/12/2022 Family History Medical History Relation Comments Diabetes Brother 1 Heart Attack Brother 1 Open Heart Brother 1 Stent Cardiac Brother 1 Heart Attack Brother 2 Open Heart Brother 2 Stent Cardiac Brother 2 Heart Attack Brother 3 Open Heart Brother 3 Stent Cardiac Brother 3 Alcohol Abuse Father Heart Attack Father Heart Disease Father Hypertension Father COPD Mother Heart Disease Mother Miscarriages / Stillbirths Mother Relation Status Comments Brother 1 Alive Brother 2 Alive Brother 3 Alive Father Mother Social History Tobacco Use Types [...] Sex Assigned at Female 05/20/2024 8:19 AM DISHWASHING MACHINE REPAIRER Legal Sex Female 3:57 PM CDT Gender Identity Female 09/22/2024 10:59 AM CDT Sexual Orientation Not on file Last Filed Vital Signs Vital Sign Reading Time Taken Comments Blood Pressure 124/78 03/09/2025 9:18 AM DISHWASHING MACHINE REPAIRER Pulse 62 03/09/2025 9:18 AM DISHWASHING MACHINE REPAIRER Temperature 36.1 C (96.9 F) 03/09/2025 9:18 AM DISHWASHING MACHINE REPAIRER Respiratory Rate 22 03/09/2025 9:18 AM DISHWASHING MACHINE REPAIRER Oxygen Saturation 97% 03/09/2025 9:18 AM DISHWASHING MACHINE REPAIRER Inhaled Oxygen Concentration - - Weight 101.6 kg (224 lb) 03/09/2025 9:18 AM DISHWASHING MACHINE REPAIRER Height 167.6 cm (5' 6) 03/09/2025 9:18 AM DISHWASHING MACHINE REPAIRER Body Mass Index 36.15 03/09/2025 9:18 AM DISHWASHING MACHINE REPAIRER Plan of Treatment Upcoming Encounters Date Type Department Care Team (Late st Contact Info) Description 09/07/2025 8:20 AM CDT Office Visit [facility] - [place] [address] [address] Patito Gaitan, S[place] [address] [place] [address] 09/07/2025 12:00 PM CDT Office Visit [facility] [address] [place] [address] Regan Costa MD [facility], [address] [place], [place] [id number] Health Maintenance Due Date Last Done Comments Hepatitis A Vaccines (1 of 2 - Risk 2-dose series) 1981 Cervical Cancer Screening Pap with HPV Testing (Age 30 to 64) Every 5 Years 02/04/1992 RSV Immunization or 60+ Years (1 - Risk 60-74 years 1-dose series) 2022 COVID-19 Vaccine ( season) 2025 04/21/2021, 08/29/2020, 08/07/2020 Lung Cancer Screening 03/26/2025 03/26/2024 Mammogram Screening 10/17/2025 10/17/2024, Annual Physical 03/09/2026 03/09/2025, 02/06, 12/12/2022, Additional history exists Cervical Cancer Screening Pap Smear (Age 30 to 64) Every 3 Years 01/19/2028 01/18/2023 Cervical Cancer Screening with HPV 01/19/2028 Colorectal Cancer Screening Colonoscopy (10 Years) 03/31/2029 03/31/2024 DTaP, Tdap and Td Vaccines (2 - Td or Tdap) 12/12/2032 12/12/2022 Hepatitis C Completed 09/29/2021 Pneumococcal Vaccine: 50+ Years Completed 12/12/2022 Zoster Vaccines Completed 03/12/2023, 01/04/2023 PHQ-2 (Physician [place]) Completed 05/19/2024 Influenza Adult Completed 02/16/2025, 03/06/2024 Meningococcal B Vaccine Aged Out No l onger eligible based on patient's age to complete this topic Meningococcal Vaccine Aged Out No vane dianna eligible based on patient's age to complete this topic RSV Immunizations Under 20 Months Aged Out No longer eligible based on patient's age to complete this topic Procedures Procedure Name Priority Date/Time Associated Diagnosis Comments COLLECTION VENOUS BLOOD VENIPUNCTURE Routine 03/09/2025 9:48 AM DISHWASHING MACHINE REPAIRER Hyperlipidemia, unspecified hyperlipidemia type LIPID PANEL Routine 03/09/2025 9:47 AM DISHWASHING MACHINE REPAIRER Hyperlipidemia, unspecified hyperlipidemia type NM PHARM NUC STRESS TEST 1DAY W TRACING Routine 01/22/2025 1:28 PM CDT Chest pain SOB (shortness of breath) USE ECHOCARDIOGRAM W CON Routine 01/22/2025 11:02 AM CDT Chest pain SOB (shortness of breath) CARDIOLOGY STRESS TEST ONLY, EXERCISE Routine 01/22/2025 10:39 AM CDT Chest pain SOB (shortness of breath) History of chest pain Hyperlipidemia, unspecified hyperlipidemia type COPD (chronic obstructive pulmonary disease) ([facility]/HCC HHS/[facility]) Essential hypertension COLLECTION VENOUS BLOOD VENIPUNCTURE Routine 01/06/2025 9:00 AM CDT Hyperlipidemia, unspecified hyperlipidemia type GENERAL HEALTH PANEL Routine 01/06/2025 8:59 AM CDT Essential hypertension COMPREHENSIVE METABOLIC PANEL Routine 01/06/2025 8:59 AM CDT Essential hypertension HEMOGLOBIN, GLYCOSYLATED Routine 01/06/2025 8:59 AM CDT Impaired fasting glucose LIPID PANEL Routine 01/06/2025 8:59 AM CDT Hyperlipidemia, unspecified hyperlipidemia type TSH W/REFLEX Routine 01/06/2025 8:59 AM CDT Essential hypertension MAMMOGRAM GENERIC (SCAN ORDER) 10/17/2024 COLONOSCOPY GENERIC (SCAN ORDER) 03/31/2024 CT LUNG SCREENING Routine 03/26/2024 10: 38 AM DISHWASHING MACHINE REPAIRER Cigarette nicotine dependence with nicotine-induced disorder CYTOPATH CERV/VAG THIN LAYER Routine 01/18/2023 8:57 AM CDT HEPATITIS C ANTIBODY Routine 09/29/2021 9:28 AM CDT Need for hepatitis C screening test from Last 3 Months or Most Recently Relevant to Health Maintenance Results * (ABNORMAL) LIPID PANEL (03/09/2025 9:47 AM DISHWASHING MACHINE REPAIRER) Only the most recent of2 resultswithin the time period is included. CHOLESTEROL 228(H) <200 MG/DL 03/09/2025 2:45 PM DISHWASHING MACHINE REPAIRER [facility] TRIGLYCERIDES 111 <150 MG/DL 03/09/2025 2:45 PM DISHWASHING MACHINE REPAIRER [facility] HDL 74 >40 MG/DL 03/09/2025 2:45 PM DISHWASHING MACHINE REPAIRER [facility] LDL-C 132(H) <100 MG/DL 03/09/2025 2:45 PM DISHWASHING MACHINE REPAIRER [facility] VLDL CALCULATION 22 5 - 28 MG/DL 03/09/2025 2:45 PM DISHWASHING MACHINE REPAIRER [facility] CHOL/HDL RATIO 3.1 0.0 - 4.0 03/09/2025 2:45 PM DISHWASHING MACHINE REPAIRER [facility] LDL/HDL 1.8 0.41 - 2.13 03/09/2025 2:45 PM DISHWASHING MACHINE REPAIRER [facility] NON HDL CHOLESTEROL 154(H) <140 MG/DL 03/09/2025 2:45 PM DISHWASHING MACHINE REPAIRER [facility] 03/09/2025 9:47 AM DISHWASHING MACHINE REPAIRER us Patito Gaitan NP LABORATORY Final Res ult [facility] [address] [place] [address], [place] [phone] * NM PHARM NUC STRESS TEST 1 DAY W TRACING (01/22/2025 1:28 PM CDT) Anatomical Region Laterality Modality Cardiac Nuclear Medicine 01/22/2025 11:3 5 AM CDT Narrative 01/23/2025 2:05 PM CDT Myocardial Perfusion Imaging Pat.Name: LARISA MORRISON Pat.ID: [id number] .Date: 01/22/2025 Refer.: Arnie Exam Time: 11:35:00 AM Study Type:HUAN NC HT MUSCLE IMAGE SPECT MULTI Height: 66 in Weight: 221 lb BSA: 2.09 m2 Age: 9 1960,64Y Sex: F Sonogrphr: Rao Villela RT(N) Pat. Stat.:Outpatient Reason for Study:Chest pain, Shortness of breath History / Clinical:Diabetes, Dyslipidemia, Hypertension, Family history CAD, COPD, Smoker Procedures: Nuclear Stress Test with Lexiscan Surgery: Nuclear Stress Test ++++++++++++++++++++++++++++++++++++ SUMMARY: ++++++++++++++++++++++++++++++++++++ Stress conclusion: 1. Clinically negative. 2. Electrocardiographically negative stress test for ischemia. 3. Scintigraphic images to follow. Perfusion conclusion: 1. Excellent study quality. No motion correction was applied to images. Diaphragm attenuation is noted. Prone imaging was performed. 2. Normal myocardial perfusion SPECT imaging. 3. Normal wall motion with an ejection fraction of 83%. 4. Stress test with myocardial perfusion imaging shows overall low risk for a cardiac event. ++++++++++++++++++++++++++++++++++++ FINDINGS: ++++++++++++++++++++++++++++++++++++ Protocol: Lexiscan 0.4mg was given as a rapid injection IV over a period of 10 seconds with the radiopharmaceutical injected at 20 seconds. The images were processed using the standard SPECT technique. A gated study was performed on the stress images. Impression: SPECT images demonstrate normal perfusion of normal intensity. Heart Size: The left ventricle is normal. LV Wall Motion: The LVEF is calculated to be 83%. Gated SPECT images reveal normal wall motion. Transient Ischemic Dilatation: The TID is 1.12. There is no evidence of Transient Ischemic Dilatation. ++++++++++++++++++++++++++++++++++++ STRESS: ++++++++++++++++++++++++++++++++++++ Baseline Vital Signs: ECG: Normal sinus rhythm, Probable old anteroseptal infarct HR: 77 bmp Rest BP: 166/89 Regadenoson Peak Dose: 0.4 mg Stress Test Results: Max HR: 97 bmp Target HR: 158 bmp % Target: 61 % Max BP: 169/79 Max RPP: 04174 O2 sat: 96 % Symptoms and Complications: Terminated: Protocol completed Symptoms: Dizziness Stress ECG Interp: No significant changes <Electronic Signature> 01/23/2025 02:05 PM Regan Costa M.D. Procedure Note Regan Costa MD - 01/23/2025 Myocardial Perfusion Imaging Pat.Name: LARISA MORRISON Sunshine.ID: [id number] .Date: 01/22/2025 Refer.: Arnie Exam Time: 11:35:00 AM Study Type:HUAN NC HT MUSCLE IMAGE SPECT MULTI Height: 66 in Weight: 221 lb BSA: 2.09 m2 Age: 9 1960,64Y Sex: F Sonogrphr: Rao Villela RT(N) Pat. Stat.:Outpatient Reason for Study:Chest pain, Shortness of breath History / Clinical:Diabetes, Dyslipidemia, Hypertension, Family history CAD, COPD, Smoker Procedures: Nuclear Stress Test with Lexiscan Surgery: Nuclear Stress Test ++++++++++++++++++++++++++++++++++++ SUMMARY: ++++++++++++++++++++++++++++++++++++ Stress conclusion: 1. Clinically negative. 2. Electrocardiographically negative stress test for ischemia. 3. Scintigraphic images to follow. Perfusion conclusion: 1. Excellent study quality. No motion correction was applied to images. Diaphragm attenuation is noted. Prone imaging was performed. 2. Normal myocardial perfusion SPECT imaging. 3. Normal wall motion with an ejection fraction of 83%. 4. Stress test with myocardial perfusion imaging shows overall low risk for a cardiac event. ++++++++++++++++++++++++++++++++++++ FINDINGS: ++++++++++++++++++++++++++++++++++++ Protocol: Lexiscan 0.4mg was given as a rapid injection IV over a period of 10 seconds with the radiopharmaceutical injected at 20 seconds. The images were processed using the standard SPECT technique. A gated study was performed on the stress images. Impression: SPECT images demonstrate normal perfusion of normal intensity. Heart Size: The left ventricle is normal. LV Wall Motion: The LVEF is calculated to be 83%. Gated SPECT images reveal normal wall motion. Transient Ischemic Dilatation: The TID is 1.12. There is no evidence of Transient Ischemic Dilatation. 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 us Regan Costa MD NUC MED Final Res ult * USE ECHOCARDIOGRAM W CON (01/22/2025 11:02 AM CDT) Anatomical Region Laterality Modality NA Echocardiogram 01/22/2025 10:3 8 AM CDT Narrative 01/22/2025 3:54 PM CDT Echocardiography Report Pat.Name: LARISA MORRISON Pat.ID: [id number] St.Date: 01/22/2025 Exam Time: 10:38:00 AM Study Type:ECHO WITH CARDIAC DOPPLER COMP Height: 66 in Weight: 221 lb BSA: 2.09 m2 Age: 9 1960,64Y Sex: F BP: 149/65 Sonogrphr: Nneka TORIBIO Pat. Stat.:Outpatient CPT - 4: C8929 Reason for Study:Chest pain, Shortness of breath Procedures: 2D, M-mode, Doppler, Color Flow, Definity was used to enhance endocardial definition. The study quality is technically difficult. Diagnostic quality after administration of myocardial contrast. ++++++++++++++++++++++++++++++++++++ SUMMARY: ++++++++++++++++++++++++++++++++++++ The left ventricular size is normal. The left ventricular systolic function is normal. Estimated left ventricular ejection fraction is 60-65%. Mild concentric left ventricular hypertrophy. Left ventricular diastolic function is indeterminate. The right ventricular size is mildly enlarged. Right ventricular systolic function is normal. The left atrial size is mildly enlarged. Mild mitral regurgitation. Technically difficult exam due to body habitus. ++++++++++++++++++++++++++++++++++++ FINDINGS: ++++++++++++++++++++++++++++++++++++ LV: The left ventricular size is normal. The left ventricular systolic function is normal. Estimated left ventricular ejection fraction is 60-65%. Mild concentric left ventricular hypertrophy. The septal E/e' is indeterminate at 8-15. The lateral E/e' is indeterminate at 9-11. Left ventricular diastolic function is indeterminate. RV: The right ventricular size is mildly enlarged. Right ventricular systolic function is normal. TAPSE = 26.6mm (<16 mm indicates systolic RV dysfunction). IVS: Intraventricular septum is normal. LA: The left atrial size is mildly enlarged. The left atrial volume is mildly increased (34- 41ml/M2). RA: The right atrial size is normal. IAS: Atrial septum appears intact. JANET: No evidence of pericardial effusion. AO: Normal aortic root. SVn: Systemic veins not well visualized. Other: Technically difficult exam due to body habitus. AV: No evidence of aortic valve stenosis. No evidence of aortic valve regurgitation. The aortic valve not well visualized. MV: Mild mitral regurgitation. No evidence of mitral stenosis. PV: Pulmonic valve not well visualized. TV: A trace of tricuspid regurgitation. No evidence of tricuspid valve stenosis. The tricuspid valve is not well visualized. ++++++++++++++++++++++++++++++++++++ MEASUREMENTS: ++++++++++++++++++++++++++++++++++++ DOPPLER Pulmonary Veins PVnpkVeld 48 cm/s Pulmonary Vein 0.59 m/s PVnVs/Vd 1.4 AR-wave velocit 0.36 m/s S1-wave velocit 0.67 m/s PVn A Dur 0.123 second TV Forward Flow TV E/A 1.12 Aortic Valve Cardiovascular 2.14 cm Aortic Root Basil 2.8 cm LVOT/AoV (MANAGER STRATEGY) ( 0.78 Left atrial basil 4.87 cm AV Antegrade Flow Peak Velocity ( 1.38 m/s Mean Velocity ( 0.91 m/s Velocity Time I 28.2 cm AV Antegrade Flow Simplified Bernoulli Gradient pressu 7.6 mmHg Gradient pressu 3.7 mmHg AV Continuity Equation by Velocity Time Integral Aortic Valve Ar 3.32 cm2 AoV Area Index 1.59 Left Ventricle Stroke Volume ( 93.6 ml Cardiac Output 7.02 liter per minute LV Antegrade Flow Peak Velocity ( 1.07 m/s Mean Velocity ( 0.8 m/s Velocity Time I 26 cm LV Antegrade Flow Simplified Bernoulli Gradient pressu 4.6 mmHg Gradient pressu 2.7 mmHg Mitral Valve Mitral Valve E- 0.21 second Mitral Valve E 0.71 Myocardial Velo 7 centimeter/second Mean Myocardial 5.7 centimeter/second Myocardial Velo 4.4 centimeter/second Ratio of Mitral 12.3 Myocardial Velo 17.4 centimeter/second Ratio of Mitral 9.99 Myocardial Velo 8.4 centimeter/second Ratio of Mitral 15.9 Isovelocity rel 0.1 second Mean Myocardial 12.9 centimeter/second MV Antegrade Flow Mitral Valve E- 0.7 m/s Mitral Valve A- 0.98 m/s PV Antegrade Flow Peak Velocity ( 0.91 m/s Mean Velocity ( 0.6 m/s Velocity Time I 15.5 cm PV Antegrade Flow Simplified Bernoulli Gradient pressu 3.3 mmHg Gradient pressu 1.6 mmHg Tricuspid Valve Tricuspid Valve 0.5 m/s Tricuspid Valve 0.44 m/s 2D Left Ventricle LVIDd 4.44 cm (3.6-5.2) LVEDV BP 88.3 ml LV EDV 58.6 ml LVESV BP 37.7 ml LV ESV 39.2 ml LV EF 33.1 % LV EDV 119 ml Left Ventricula -7.6 % LV ESV 29.8 ml LV EF 75 % LV EF BP 57.3 % Left Ventricula -31.8 % Left Ventricula -19.7 % Left Atrium Left Atrium Vol 34.8 ml/m2 LA Biplane Left Atrium Vol 72.7 ml LA Single Plane Left Atrium gloria 5.71 cm Left Atrium gloria 5.32 cm Left Atrium Vol 66.2 ml Left Atrium Vol 75.4 ml LV Teichholz Interventricula 1.19 cm Left Ventricle 3.13 cm Left Ventricle 1.3 cm Heart rate 75 Heart beat per minute Right Atrium RA sys Area 16.7 cm2 Right Ventricle Right Ventricul 4.07 cm RVIDd 3.91 cm MMODE Tricuspid Valve Tricuspid annul 2.66 cm <Electronic Signature> 01/22/2025 03:54 PM Regan Costa M.D. Procedure Note Regan Costa MD - 01/22/2025 Echocardiography Report Pat.Name: LARISA MORRISON Pat.ID: [id number] .Date: 01/22/2025 Exam Time: 10:38:00 AM Study Type:ECHO WITH CARDIAC DOPPLER COMP Height: 66 in Weight: 221 lb BSA: 2.09 m2 Age: 9 1960,64Y Sex: F BP: 149/65 Sonogrphr: Nneka TORIBIO Pat. Stat.:Outpatient CPT - 4: C8929 Reason for Study:Chest pain, Shortness of breath Procedures: 2D, M-mode, Doppler, Color Flow, Definity was used to enhance endocardial definition. The study quality is technically difficult. Diagnostic quality after administration of myocardial contrast. ++++++++++++++++++++++++++++++++++++ SUMMARY: ++++++++++++++++++++++++++++++++++++ The left ventricular size is normal. The left ventricular systolic function is normal. Estimated left ventricular ejection fraction is 60-65%. Mild concentric left ventricular hypertrophy. Left ventricular diastolic function is indeterminate. The right ventricular size is mildly enlarged. Right ventricular systolic function is normal. The left atrial size is mildly enlarged. Mild mitral regurgitation. Technically difficult exam due to body habitus. ++++++++++++++++++++++++++++++++++++ FINDINGS: ++++++++++++++++++++++++++++++++++++ LV: The left ventricular size is normal. The left ventricular systolic function is normal. Estimated left ventricular ejection fraction is 60-65%. Mild concentric left ventricular hypertrophy. The septal E/e' is indeterminate at 8-15. The lateral E/e' is indeterminate at 9-11. Left ventricular diastolic function is indeterminate. RV: The right ventricular size is mildly enlarged. Right ventricular systolic function is normal. TAPSE = 26.6mm (<16 mm indicates systolic RV dysfunction). IVS: Intraventricular septum is normal. LA: The left atrial size is mildly enlarged. The left atrial volume is mildly increased (34- 41ml/M2). RA: The right atrial size is normal. IAS: Atrial septum appears intact. JANET: No evidence of pericardial effusion. AO: Normal aortic root. SVn: Systemic veins not well visualized. Other: Technically difficult exam due to body habitus. AV: No evidence of aortic valve stenosis. No evidence of aortic valve regurgitation. The aortic valve not well visualized. MV: Mild mitral regurgitation. No evidence of mitral stenosis. PV: Pulmonic valve not well visualized. TV: A trace of tricuspid regurgitation. No evidence of tricuspid valve stenosis. The tricuspid valve is not well visualized. ++++++++++++++++++++++++++++++++++++ MEASUREMENTS: ++++++++++++++++++++++++++++++++++++ DOPPLER Pulmonary Veins PVnpkVeld 48 cm/s Pulmonary Vein 0.59 m/s PVnVs/Vd 1.4 AR-wave velocit 0.36 m/s S1-wave velocit 0.67 m/s PVn A Dur 0.123 second TV Forward Flow TV E/A 1.12 Aortic Valve Cardiovascular 2.14 cm Aortic Root Basil 2.8 cm LVOT/AoV (MANAGER STRATEGY) ( 0.78 Left atrial basil 4.87 cm AV Antegrade Flow Peak Velocity ( 1.38 m/s Mean Velocity ( 0.91 m/s Velocity Time I 28.2 cm AV Antegrade Flow Simplified Bernoulli Gradient pressu 7.6 mmHg Gradient pressu 3.7 mmHg AV Continuity Equation by Velocity Time Integral Aortic Valve Ar 3.32 cm2 AoV Area Index 1.59 Left Ventricle Stroke Volume ( 93.6 ml Cardiac Output 7.02 liter per minute LV Antegrade Flow Peak Velocity ( 1.07 m/s Mean Velocity ( 0.8 m/s Velocity Time I 26 cm LV Antegrade Flow Simplified Bernoulli Gradient pressu 4.6 mmHg Gradient pressu 2.7 mmHg Mitral Valve Mitral Valve E- 0.21 second Mitral Valve E 0.71 Myocardial Velo 7 centimeter/second Mean Myocardial 5.7 centimeter/second Myocardial Velo 4.4 centimeter/second Ratio of Mitral 12.3 Myocardial Velo 17.4 centimeter/second Ratio of Mitral 9.99 Myocardial Velo 8.4 centimeter/second Ratio of Mitral 15.9 Isovelocity rel 0.1 second Mean Myocardial 12.9 centimeter/second MV Antegrade Flow Mitral Valve E- 0.7 m/s Mitral Valve A- 0.98 m/s PV Antegrade Flow Peak Velocity ( 0.91 m/s Mean Velocity ( 0.6 m/s Velocity Time I 15.5 cm PV Antegrade Flow Simplified Bernoulli Gradient pressu 3.3 mmHg Gradient pressu 1.6 mmHg Tricuspid Valve Tricuspid Valve 0.5 m/s Tricuspid Valve 0.44 m/s 2D Left Ventricle LVIDd 4.44 cm (3.6-5.2) LVEDV BP 88.3 ml LV EDV 58.6 ml LVESV BP 37.7 ml LV ESV 39.2 ml LV EF 33.1 % LV EDV 119 ml Left Ventricula -7.6 % LV ESV 29.8 ml LV EF 75 % LV EF BP 57.3 % Left Ventricula -31.8 % Left Ventricula -19.7 % Left Atrium Left Atrium Vol 34.8 ml/m2 LA Biplane Left Atrium Vol 72.7 ml LA Single Plane Left Atrium gloria 5.71 cm Left Atrium gloria 5.32 cm Left Atrium Vol 66.2 ml Left Atrium Vol 75.4 ml LV Teichholz Interventricula 1.19 cm Left Ventricle 3.13 cm Left Ventricle 1.3 cm Heart rate 75 Heart beat per minute Right Atrium RA sys Area 16.7 cm2 Right Ventricle Right Ventricul 4.07 cm RVIDd 3.91 cm MMODE Tricuspid Valve Tricuspid annul 2.66 cm <Electronic Signature> 01/22/2025 03:54 PM Regan Costa M.D. Regan Costa MD ECHO Final Res ult * TSH W/REFLEX (01/06/2025 8:59 AM CDT) TSH 3.064 0.358 - 3.740 uIU/ML 01/06/2025 3:57 PM CDT [facility] 01/06/2025 8:59 AM CDT Patito Gaitan NP LABORATORY Final Res ult Performing Organization Address City/State/[facility] Co de Phone Number [facility] [place] [address] [place] [address], * (ABNORMAL) HEMOGLOBIN, GLYCOSYLATED (01/06/2025 8:59 AM CDT) HGB A1C 5.9 4.5 - 6.2 % 01/06/2025 3:51 PM CDT [facility] ESTIMATED AVG GLUCOSE 123(H) 74 - 106 MG/DL 01/06/2025 3:51 PM CDT [facility] 01/06/2025 8:59 AM CDT Patito Gaitan CONFERENCE PLANNER LABORATORY Final Res ult Performing Organization Address [facility] Co de Phone Number [facility] [address] [place] [address], * (ABNORMAL) COMPREHENSIVE METABOLIC PANEL (01/06/2025 8:59 AM CDT) SODIUM S/P/B 141 136 - 145 MMOL/L 01/06/2025 4:11 PM CDT [facility] POTASSIUM S/P/B 4.5 3.5 - 5.1 MMOL/L 01/06/2025 4:11 PM CDT [facility] CHLORIDE S/P/B 101 98 - 107 MMOL/L 01/06/2025 4:11 PM CDT [facility] CO2 32.5(H) 21 - 32 MMOL/L 01/06/2025 4:11 PM CDT [facility] Comment:RESULTS CONFIRMED-TE ST REPEATED GLUCOSE 129(H) 70 - 99 MG/DL 01/06/2025 3:57 PM CDT [facility] BUN 16 7 - 18 MG/DL 01/06/2025 3:57 PM CDT [facility] CREATININE S/P/B 0.95 0.55 - 1.02 MG/DL 01/06/2025 3:57 PM [facility] CALCIUM S/P/B 10.1 8.4 - 10.5 MG/DL 01/06/2025 3:57 PM [facility] BILIRUBIN TOTAL S/P/B 0.9 0.2 - 1.0 MG/DL 01/06/2025 3:57 PM [facility] ALKALINE PHOSPHATASE S/P/B 463(H) 50 - 130 U/L 01/06/2025 3:57 PM [facility] AST 63(H) 15 - 37 U/L 01/06/2025 3:57 PM [facility] ALT 57 14 - 59 U/L 01/06/2025 3:57 PM [facility] TOTAL PROTEIN S/P/B 7.0 6.4 - 8.2 G/DL 01/06/2025 3:57 PM [facility] ALBUMIN S/P/B 3.4 3.4 - 5.0 G/DL 01/06/2025 3:57 PM [facility] ANION GAP 7.5 5 - 15 MMOL/L 01/06/2025 4:11 PM [facility] Comment:REFERENCE RANGE NOT ESTABLISHED OSMOLALITY (CALC) 295 MOSM/KG 025 4:11 PM T [facility] Comment:REFERENCE RANGE NOT ESTABLISHED GFR ESTIMATE 68(L) >90 ML/MIN/1. 73 M2 01/06/2025 3:57 PM T [facility] GFR NOTES GFR REFERENCE S: 01/06/2025 3:57 PM [facility] Comment: THE ESTIMATED GFR IS CALCULATED USING THE 2020 CKD-EPI EQUATION. THE FOLLOWING CATEGORIES FOR GRADING RENAL FUNCTION ARE RECOMMENDED BY THE INTERNATIONAL SOCIETY OF NEPHROLOGY (KDIGO 2012 CLINICAL PRACTICE GUIDELINE). G1,NORMAL OR HIGH: >89 ml/min/1.73 m2 G2,MILDLY DECREASED: 60-89 ml/min/1.73 m2 G3A,MILDLY TO MODERATELY DECREASED: 45-59 ml/min/1.73 m2 G3B,MODERATELY TO SEVERELY DECREASED: 30-44 ml/min/1.73 m2 G4,SEVERELY DECREASED: 15-29 ml/min/1.73 m2 G5,KIDNEY FAILURE: <15 ml/min/1.73 m2 01/06/2025 8:59 AM CDT us Patito Gaitan CONFERENCE PLANNER LABORATORY Final Res ult [facility] [address] [place] [address], * (ABNORMAL) CBC W/DIFF AUTOMATED (01/06/2025 8:59 AM CDT) WBC 11.03(H) 4.00 - 10.80 x10'3/uL 01/06/2025 3:05 PM CDT [facility] RBC 4.41 4.10 - 5.40 x10'6/uL 01/06/2025 3:05 PM CDT [facility] HGB 14.8 12.0 - 16.0 G/DL 01/06/2025 3:05 PM CDT [facility] HCT 46.5 36.0 - 47.0 % 01/06/2025 3:05 PM CDT [facility] MCV 105.4(H) 78.0 - 100.0 FL 01/06/2025 3:05 PM CDT [facility] MCH 33.6(H) 27.0 - 31.0 PG 01/06/2025 3:05 PM CDT [facility] MCHC 31.8(L) 33.0 - 36.0 G/DL 01/06/2025 3:05 PM CDT [facility] RDW 14.2 11.5 - 14.5 % 01/06/2025 3:05 PM CDT [facility] PLT 304 150 - 350 x10'3/uL 01/06/2025 3:05 PM CDT [facility] MPV 11.4(H) 7.4 - 10.4 FL 01/06/2025 3:05 PM CDT [facility] DIFFERENTIAL TYPE AUTOMATED DIFFERENTIAL 01/06/2025 3:05 PM CDT [facility] NEUTROPHILS % 52.8 % 01/06/2025 3:05 PM CDT [facility] LYMPHOCYTES % 36.7 % 01/06/2025 3:05 PM CDT [facility] MONOCYTES % 6.5 % 01/06/2025 3:05 PM CDT [facility] EOSINOPHILS % 3.5 % 01/06/2025 3:05 PM CDT [facility] BASOPHILS % 0.3 % 01/06/2025 3:05 PM CDT [facility] IMMATURE GRANS % 0.2 % 01/06/2025 3:05 PM CDT [facility] ABS. NEUTROPHILS 5.82 1.60 - 8.30 x10'3/uL 01/06/2025 3:05 PM CDT [facility] ABS. LYMPHOCYTES 4.05 0.80 - 4.70 x10'3/uL 01/06/2025 3:05 PM CDT [facility] ABS. MONOCYTES 0.72 0.00 - 1.50 x10'3/uL 01/06/2025 3:05 PM CDT [facility] ABS. EOSINOPHILS 0.39 0.00 - 0.40 x10'3/uL 01/06/2025 3:05 PM CDT [facility] ABS. BASOPHILS 0.03 0.00 - 0.20 x10'3/uL 01/06/2025 3:05 PM CDT [facility] ABS. IMMATURE GRANULOCYTES 0.02 0.00 - 0.03 x10'3/uL 01/06/2025 3:05 PM CDT [facility] 01/06/2025 8:59 AM CDT Patito Gaitan CONFERENCE PLANNER LABORATORY Final Res ult [facility] [address] [place] [address], [place] [phone] * MAMMOGRAM GENERIC (SCAN ORDER) (10/17/2024) Anatomical Region Laterality Modality Other 10/17/2024 [facility] Scanned SCANNING Final Resu lt * COLONOSCOPY GENERIC (SCAN ORDER) (03/31/2024) 03/31/2024 [facility] Scanned SCANNING Final Resu lt * CT LUNG SCREENING (03/26/2024 10:38 AM DISHWASHING MACHINE REPAIRER) Anatomical Region Laterality Modality Chest Computed Tomogra phy 04/01/2024 10:4 3 AM DISHWASHING MACHINE REPAIRER Impressions 04/01/2024 10:47 AM DISHWASHING MACHINE REPAIRER IMPRESSION: 1. LUNG-RADS category 2: Benign appearance [...] 04/01/2024 10:43 AM Narrative 04/01/2024 10:47 AM DISHWASHING MACHINE REPAIRER [address] [address] EXAM: LUNG SCREENING LOW-DOSE CT THORAX WITHOUT [...] Procedure Note Haja Meadows MD - 04/01/[address] [address] EXAM: LUNG SCREENING LOW-DOSE CT THORAX WITHOUT [...] LDCT Chest in 12 months (on or [id number]/2025). Ordered By: PATITO GAITAN Interpreted By: Haja Meadows, 04/01/2024 10:43 AM us Patito Gaitan CONFERENCE PLANNER CT Final Res ult * Cytopath Cerv/Vag Thin Layer (01/18/2023 8:57 AM CDT) THIN PREP PAP [address] [address] Department of Pathology Pathology Report CERVICAL/VAGINAL PAP SMEAR REPORT Name: LARISA MORRISON Age: 9 1960 (Age: 62) Location: [facility] Sex: F Collected Date: 01/18/2023 [facility] #: [id number] Date Received: 01/22/2023 Date Reported: 01/22/2023 Provider: PATITO GAITAN CONFERENCE PLANNER INTERPRETATION CERVICAL/ENDOCERVI DIANE: SATISFACTORY FOR EVALUATION. ENDOCERVICAL/TRANS [...] is not effective in detecting cervical adenocarcinoma. [facility] 01/18/2023 8:57 AM CDT 01/22/2023 8:57 AM CDT Comment:CERVICAL/ENDOCERVICA L Patito Gaitan NP PATHOLOGY/CYTOLOGY ORDERA BLES Final Result [facility] [address] [place] [address], * HEPATITIS C ANTIBODY (09/29/2021 9:28 AM [...] support the diagnosis of acute HCV infection. [facility] offers Hepatitis C Virus (HCV) RNA, Diagnosis, BRIAN ([id number]) and Hepatitis C Virus (HCV) Antibody with reflex to Quantitative Real-time PCR ([id number]). 09/29/2021 9:28 AM CDT 09/29/2021 Narrative [facility] - 09/30/2021 8:08 AM CDT Performed at: [address] [place] [id number] Resident Care Aide: Alejandro Deshpande PhD, Phone: [phone] us Patito Gaitan NP LABORATORY Final Res ult [facility] [address] [place] [address] [facility] 1 from Last 3 Months or Most Recently Relevant to Health Maintenance Insurance Correlor Care Teams Children'S Author Relationship Specialty Start Date End Date Patito Gaitan NP [address] [place], [place] [address] PCP - General NURSE PRACTITIONER 09/08/21
--- OUTSIDE RECORDS SUMMARY | 2025-04-06 16:43 | XMS_ITS | Encounter Summary ---
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 Legal Sex Female 3:57 PM CDT Gender Identity Female 09/22/2024 10:59 AM CDT Sexual Orientation Not on file documented as of this encounter Plan of Treatment Upcoming Encounters Date Type Department Care Team (Late Contact Info) Description 09/07/2025 8:20 AM CDT Office Visit [facility] [address] [address] Patito Gaitan NP [address] [place] [address] 09/07/2025 12:00 PM CDT Office Visit [facility] [address] [place] [address] Regan Costa MD [facility], [address] [place] [address] documented as of this encounter Visit Diagnoses Not on filedocumented in this encounter Additional Health Concerns Assessment Noted Time PHQ-9 Depression Total Score: 4 11/14/19 23 3:06 PM CDT documented as of this encounter Care Teams Principal Technical Writer Relationship Specialty Start Date End Date Patito Gaitan NP [address] [place] [address] PCP - General NURSE PRACTITIONER 09/08/21 documented as of this encounter
--- OUTSIDE RECORDS SUMMARY | 2025-04-06 16:43 | XMS_ITS | Encounter Summary ---
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 Legal Sex Female 3:57 PM CDT Gender Identity Female 09/22/2024 10:59 AM CDT Sexual Orientation Not on file documented as of this encounter Plan of Treatment Upcoming Encounters Date Type Department Care Team (Late st Contact Info) Description 09/07/2025 8:20 AM CDT Office Visit [facility] [address] [address] Patito Gaitan NP [address] [place] [address] 09/07/2025 12:00 PM CDT Office Visit [facility] [address] [place] [address] Regan Costa MD [facility], [address] [place] [address] Scheduled Orders Name Type Priority Associated Diagnoses Orde r Schedule LIPID PANEL Lab Routine Hyperlipidemia, unspecified hyperlipidemia type Expected: 06/09/2025, Expires: 06/09/2026 documented as of this encounter Visit Diagnoses Diagnosis Hyperlipidemia, unspecified hyperlipidemia type documented in this encounter Additional Health Concerns Assessment Noted Time PHQ-9 Depression Total Score: 4 11/14/19 23 3:06 PM CDT documented as of this encounter Care Teams Watermelon Harvesting Supervisor Relationship Specialty Start Date End Date Patito Gaitan NP [address] [place] [address] PCP - General NURSE PRACTITIONER 09/08/21 documented as of this encounter
--- OUTSIDE RECORDS SUMMARY | 2025-04-06 16:43 | XMS_ITS | Clinical Summary ---
Author Organization [facility] Building [address] Address [address] [place] [address] Care Team Providers Care Publicity Agent Name Role Phone Patito Gaitan MD Primary Care Provider [phone] Allergies Active Allergy Reactions Criticality Noted Date [...] 1 tablet (25 mg total) by mouth cumulative effects analyst before breakfast 4 Active losartan-hydroC HLOROthiazide (HYZAAR) 100-12.5 mg per tablet Take 1 tablet by mouth daily 4 Active metoprolol XL (TOPROL-XL) 25 mg extended release tablet Take 1 tablet (25 mg total) by mouth daily 4 Active pravastatin (PRAVACHOL) 20 mg tablet Take 2 tablets (40 mg total) by mouth daily 4 Active ursodioL (ACTIGALL) 300 mg capsule Take 2 capsules (600 mg total) by mouth 2 (two) times a day 3 Active fluticasone propionate (FLONASE) 50 mcg/actuation nasal spray Administer 2 sprays into each nostril daily 4 Active albuterol HFA (PROVENTIL HFA,VENTOLIN HFA,PROAIR HFA) 90 mcg/actuation inhaler Inhale 2 puffs every 4 (four) hours as needed for shortness of breath or wheezing 18 g 11 5 Active metFORMIN (GLUCOPHAGE) 500 mg tablet Take 1 tablet twice a day by oral route. Active alendronate (FOSAMAX) 70 mg tablet Take 1 tablet (70 mg total) by mouth once a week 5 Active meloxicam (MOBIC) 7.5 mg tablet Take 1 tablet (7.5 mg total) by mouth daily 5 Active fluticasone-ume clidin-vilanter (Trelegy Ellipta) 100-62.5-25 mcg inhaler Inhale 1 puff daily 30 each 11 5 Active Active Problems Problem Noted Date Diagnosed Date Class 2 obesity due to excess calories in adult 01/16/2025 Pulmonary nodules 07/11/2024 Tobacco use 07/11/2024 Simple chronic bronchitis 07/08/2024 Encounters Date Type Department Care Team Description 04/01/2025 Results Follow-Up [facility] Pulmonary at [address] [phone] Lung Cancer Screening 03/26/2025 9:06 AM SHADE BANDER - 03/26/2025 11:59 PM SHADE BANDER Hospital Encounter [address] [address] Personal history of nicotine dependence Discharge Disposition: Discharge to home or self care 03/12/2025 Telephone [facility] Pulmonary at [address] [phone] Jeanette Ha CMA 01/15/2025 11:30 AM CDT Office Visit [facility] Pulmonary at [address] [phone] Quang Goodwin DO Simple chronic bronchitis (HCC) (Primary Dx); Personal history of nicotine dependence; Tobacco use; Class 2 severe obesity due to excess calories with serious comorbidity and body mass index (BMI) of 37.0 to 37.9 in adult (HCC) from Last 3 Months Medical History Medical History Date Comments Hypertension Liver disease COPD (chronic obstructive pulmonary disease) Family History Medical History Relation Name Comments [...] on file Legal Sex Female 9:03 AM SHADE BANDER Gender Identity Not on file Sexual Orientation Not on file Last Filed Vital Signs Vital Sign Reading Time Taken Comments Blood Pressure 120/60 01/15/2025 10:46 AM CDT Pulse 68 01/15/2025 10:46 AM CDT Temperature 37.2 C (98.9 F) 01/15/2025 10:46 AM CDT Respiratory Rate 18 01/15/2025 10:4 6 AM CDT Oxygen Saturation 94% 01/15/2025 10: 46 AM CDT Inhaled Oxygen Concentration - - Weight 101.2 kg (223 lb 1.6 oz) 025 10:46 AM CDT Height 165.1 cm (5' 5) 01/15/2025 10:4 6 AM CDT Body Mass Index 37.13 01/15/2025 10:46 AM CDT Plan of Treatment Health Maintenance Due Date Last Done Comments Breast Cancer Screening-Mammogram 1960 Colon Cancer Screening-Colonoscopy 1960 Depression Screening 1962 Hepatitis C Screening 1962 Hepatitis B Screening 02/04/1980 Regular Well Visit/Exam 18-64 02/04/1980 Cervical Cancer Screening 01/19/2024 01/18/2023 Covid-19 Vaccine ( season) 2025 04/21/2021, 08/29/2020, 08/07/2020 Lung Cancer Screening 03/27/2026 03/26/2025 DTaP/Tdap/Td Vaccine (2 - Td or Tdap) 12/12/203212/2022 Pneumococcal vaccine <65 Completed 12/12/2022 Zoster Vaccine Completed 03/12/2023, 01/04/2023 Influenza Vaccine Completed 02/16/2025, 03/06/2024 Procedures Procedure Name Priority Date/Time Associated Diagnosis Comments CT LUNG CANCER SCREENING Schedule Routine, Read Routine (OP Routine) 03/26/2025 9:26 AM SHADE BANDER Personal history of nicotine dependence from Last 3 Months Results * CT Lung Cancer Screening (03/26/2025 9:26 AM SHADE BANDER) Anatomical Region Laterality Modality Chest N/A Computed Tomogra phy 03/27/2025 2:23 PM SHADE BANDER Impressions 03/27/2025 2:23 PM SHADE BANDER 1. LungRADS Category 2 (benign) . Recommend Low dose Screening CT of chest in 12 months. LungRADS Categories: 1 - Negative (no nodules, or only benign calcified or fat-containing nodules) 2 - Benign Appearance or Behavior (nodules with very low likelihood of becoming a clinically active cancer due to size or lack of growth) 3 - Probably Benign (probably benign findings-short term follow up suggested; includes nodules with a low likelihood of becoming a clinically active cancer) 4A,4B,4X - Suspicious (category 3 or 4 nodules with findings for which additional diagnostic testing and/or tissue sampling is recommended) S - Other (clinically significant or potentially clinically significant findings (non-lung cancer) C - Prior Lung Cancer (modifier for patients with a prior diagnosis of lung cancer who return to screening) Electronically signed by: Lesly Trejo MD Narrative 03/27/2025 2:23 PM SHADE BANDER EXAMINATION: Lung cancer screening CT of the Chest without intravenous contrast HISTORY: Lung Cancer Screening TECHNIQUE: Low radiation dose chest protocol. No intravenous contrast. Reconstructed slice width 1.[address] Dose Index 1.7 mGy. Dose-length product 57 mGy-cm. COMPARISON: Outside institution examination performed March 26, 2024. FINDINGS: Lung nodules or findings of lung cancer: Again seen is a small cluster of centrilobular opacities in the left upper lobe with largest discrete nodule measuring up to 5 mm. No new concerning nodules are identified. Smoking related lung disease: Respiratory bronchiolitis. Other findings: Central airways: Widely patent. Lymph nodes: There is no lymphadenopathy in the chest. Heart and Great vessels: The heart size is normal. There is coronary atherosclerosis. There is no pericardial fluid collection. Osseous and body wall: There is minimal multilevel disc degeneration of the thoracic spine. There are no concerning osteolytic or osteoblastic lesions. Procedure Note Lesly Trejo MD - 03/27/2025 EXAMINATION: Lung cancer screening CT of the Chest without intravenous contrast HISTORY: Lung Cancer Screening TECHNIQUE: Low radiation dose chest protocol. No intravenous contrast. Reconstructed slice width 1.[address] Dose Index 1.7 mGy. Dose-length product 57 mGy-cm. COMPARISON: Outside institution examination performed March 26, 2024. FINDINGS: Lung nodules or findings of lung cancer: Again seen is a small cluster of centrilobular opacities in the left upper lobe with largest discrete nodule measuring up to 5 mm. No new concerning nodules are identified. Smoking related lung disease: Respiratory bronchiolitis. Other findings: Central airways: Widely patent. Lymph nodes: There is no lymphadenopathy in the chest. Heart and Great vessels: The heart size is normal. There is coronary atherosclerosis. There is no pericardial fluid collection. Osseous and body wall: There is minimal multilevel disc degeneration of the thoracic spine. There are no concerning osteolytic or osteoblastic lesions. IMPRESSION: 1. LungRADS Category 2 (benign) . Recommend Low dose Screening CT of chest in 12 months. LungRADS Categories: 1 - Negative (no nodules, or only benign calcified or fat-containing nodules) 2 - Benign Appearance or Behavior (nodules with very low likelihood of becoming a clinically active cancer due to size or lack of growth) 3 - Probably Benign (probably benign findings-short term follow up suggested; includes nodules with a low likelihood of becoming a clinically active cancer) 4A,4B,4X - Suspicious (category 3 or 4 nodules with findings for which additional diagnostic testing and/or tissue sampling is recommended) S - Other (clinically significant or potentially clinically significant findings (non-lung cancer) C - Prior Lung Cancer (modifier for patients with a prior diagnosis of lung cancer who return to screening) Electronically signed by: Lesly Trejo MD Quang Goodwin DO IMG CT PROCEDURES Final R esult from Last 3 Months Insurance [employer] OPEN ACCESS Care Teams Publicity Agent Relationship Specialty Start Date End Date Patito Gaitan MD [id number] [address] PCP - General Nurse Practitioner 03/11/24
[2025-04-06 16:56] VITALS: O2SAT 98
[2025-04-06 17:32] LABS: Hematocrit 43.2 % (37.0-47.0); Hemoglobin 14.0 g/dL (12.0-15.0); Immature Granulocyte Percent A 0.2 % (0-0.5); Lymphocytes Absolute Auto 2.19 K/mm3 (0.9-3.2); Mean Corpuscular HGB Conc 32.4 g/dl (32-36); Mean Corpuscular Hemoglobin 33.2 pg (26-34); Mean Corpuscular Volume 102.4 fl (80-100); Nucleated Red Blood Cells Absolute Auto 0.000 K/mm3 (0.0-0.012); Nucleated Red Blood Cells Perc 0.0 % (0.0-0.2); Platelet Count Result 245 k/mm3 (150-375); Red Blood Count 4.22 M/mm3 (4.2-5.4); White Blood Count 15.7 K/mm3 (4.5-10.0)
[2025-04-06 17:44] LABS: INR 0.9; Partial Thromboplastin Time 21.4 Seconds (22.3-36.8); Prothrombin Time 12.4 Seconds (11.1-14.7)
[2025-04-06 17:54] LABS: Alanine Aminotransferase 69 U/L (6-35); Albumin Level 4.1 g/dL (3.5-5.1); Alkaline Phosphatase 344 U/L (38-126); Anion Gap 2 mmol/L (4-12); Aspartate Amino Transferase 70 U/L (14-36); Bilirubin,Total 1.1 mg/dL (0.2-1.3); Blood Urea Nitrogen 18 mg/dL (7-17); Calcium 9.1 mg/dL (8.4-10.2); Carbon Dioxide 31 mmol/L (22-30); Chloride 101 mmol/L (98-107); Estimated CRCL calculation 72 ml/min; Estimated Glomerular Filt Rate > 60; Glucose 135 mg/dL (65-110); Potassium 3.8 mmol/L (3.4-5.0); Sodium 134 mmol/L (137-145); Total Protein 7.4 g/dL (6.3-8.2)
[2025-04-06 18:04] LABS: NT Pro B Type Natriuretic Pept 295 pg/mL (19.9-100); Troponin I < 0.012 ng/mL (0.000-0.034)
[2025-04-06] MEDS: ALBUTEROL SULFATE NEB 2.5 MG/3 ML INH 10 MG INHALATION (18:39)
[2025-04-06] MEDS: IPRATROPIUM BR 0.02% INH SOLN 0.5 MG/2.5 ML VIAL 1 MG INHALATION (18:39)
[2025-04-06 18:46] VITALS: PULSE 65; RESP 20
--- NOTE | 2025-04-06 19:39 | ED_ITS ---
HPI - SOB/Dyspnea General Chief Complaint: Shortness of Breath/Dyspnea <Ivory Jamison MD - Last Filed: 04/06/25 19:42> Stated Complaint: sob <Ivory Jamison MD - Last Filed: 04/06/25 19:42> Time Seen by Provider: 04/06/25 16:16 <Ivory Jamison MD - Last Filed: 04/06/25 19:42> History of Present Illness HPI Narrative: Patient history of COPD, still smoking, and hypertension, presents here with difficulty breathing, received breathing treatments and dose of Solu-Medrol from EMS before arrival and was feeling better. Has been having a cough and URI symptoms since Thanksgiving with multiple family members are sick. <Ivory Jamison MD - Last Filed: 04/06/25 19:42> Related Data Home Medications: Home Medications ?Medication ?Instructions ?Recorded ?Confirmed ?Last Taken ?Type metformin 500 mg tablet 500 mg PO BID 06/18/1910/04 Unknown History pravastatin 20 mg tablet 20 mg PO DAILY 06/18/1909/06 Unknown History (Pravachol) <Ivory Jamison MD - Last Filed: 04/06/25 19:42> Allergies/Adverse Reactions: Allergies Allergy/AdvReac Type Severity Reaction Status Date / Time codeine Allergy Unknown Rash Verified 02/20/20 10:16 Penicillins Allergy Unknown Skin Verified 02/20/20 10:16 irritation <Ivory Jamison MD - Last Filed: 04/06/25 19:42> Review of Systems 2 Review of Systems: All systems reviewed & are unremarkable except as noted in HPI and below <Ivory Jamison MD - Last Filed: 04/06/25 19:42> PMFSH Family History Family History: Family History (Updated 12/03/15 @ 23:19 by DOCTOR UNKNOWN) Mother Family history of diabetes mellitus in first degree relative Sibling Family history of diabetes mellitus in first degree relative Father Family history of heart disease in male family member before age 55 <Ivory Jamison MD - Last Filed: 04/06/25 19:42> Social History Social History: Social History Smoking status: Never smoker Second hand tobacco smoke exposure: Yes Alcohol intake: current Gender identity (if verbalized by the patient): Female <Ivory Jamison MD - Last Filed: 04/06/25 19:42> Exam 2 Narrative: EXAMINATION OF ORGAN SYSTEMS/BODY AREAS: Constitutional: Vital signs per nursing GENERAL: Appears short of breath HEAD: Normal with no signs of head trauma. EYES: EOMI, conjunctiva normal ENT: Hearing grossly intact LUNGS: Slightly tachypneic, wheezing all lung lorenzana with diminished lung sounds HEART: [Regular rate and rhythm] ABD: [Soft], [nontender to palpation] EXT: Normal range of motion, no lower extremity edema SKIN: [No rashes or lesions.] NEURO: [Alert and oriented x 3. No gross focal sensory or strength deficits.] PSYCH: Normal affect <Ivory Jamison MD - Last Filed: 04/06/25 19:42> Course Course Emergency Course: 19:00- Patient signed out to me by off going provider Dr. Jamison. patient has received breathing treatments, Solu-Medrol, 2-3 L of supplemental oxygen, has a history of COPD. CBC revealed a white blood cell count of 15.7. Comprehensive metabolic panel showed a bicarb of 31, transaminitis, BNP of 295, troponin less than 0.012. Chest x-ray revealed no acute cardiopulmonary abnormality. 20:00 - On reassessment patient is resting comfortably appearing in no significant respiratory distress, notes that she feels much better at this time, has been off oxygen for the past 15 minutes or so, saturating 91-92% on room air. Notes that she has an inhaler. Feels well enough to go home and follow-up with her doctors and strict return precautions if she is not feel like her symptoms are adequately controlled, back to the emergency department. Will provide her with a dose of doxycycline and a prescription for doxycycline in addition to prescription of an albuterol inhaler and steroids. Patient instructed to take the inhaler 2 puffs when she gets home in another 2 puffs 4 hours later then to use every 4 hours as needed. Patient notes that she is still smoking and counseled to abstain from any further smoking. <Ady May DO - Last Filed: 04/06/25 20:07> Vital Signs Vital signs: Vital Signs Pulse Rate 72 04/06/25 16:06 Respiratory Rate 18 04/06/25 16:06 Blood Pressure 199/86 H 04/06/25 16:06 Pulse Oximetry 96 04/06/25 16:06 Oxygen Delivery Room Air 04/06/25 16:06 Pulse Rate 65 04/06/25 18:46 Respiratory Rate 20 04/06/25 18:46 Blood Pressure 199/86 H 04/06/25 16:06 Pulse Oximetry 98 04/06/25 16:56 Oxygen Delivery Nasal Cannula 04/06/25 16:56 Oxygen Flow Rate 2 04/06/25 16:56 <Ivory Jamison MD - Last Filed: 04/06/25 19:42> Vital Signs Pulse Rate 72 04/06/25 16:06 Respiratory Rate 18 04/06/25 16:06 Blood Pressure 199/86 H 04/06/25 16:06 Pulse Oximetry 96 04/06/25 16:06 Oxygen Delivery Room Air 04/06/25 16:06 Pulse Rate 65 04/06/25 18:46 Respiratory Rate 20 04/06/25 18:46 Blood Pressure 199/86 H 04/06/25 16:06 Pulse Oximetry 98 04/06/25 16:56 Oxygen Delivery Nasal Cannula 04/06/25 16:56 Oxygen Flow Rate 2 04/06/25 16:56 <dAy May DO - Last Filed: 04/06/25 20:07> [facility] MDM Narrative Medical decision making narrative: ED COURSE AND MEDICAL DECISION MAKIN-year-old female with acute dyspnea and wheezing likely due to acute COPD exacerbation based on history and exam. Patient is hemodynamically stable. She already received steroids and nebulizer treatment from EMS Patient monitored in the ED for a couple of hours and on re-evaluation is wheezing again having shortness of breath, requiring 2 L nasal cannula. Additional breathing treatments initiated. Chest x-ray is clear. Labs within acceptable limits other than elevated WBCs and elevated LFTs. EKG - 12-Lead: Performed at 1622. Interpreted by me. [Sinus rhythm]. Rate 65. [Normal] axis. DE-interval [normal]. QRS duration [normal]. QTc [normal]. [No ST segment elevation or depression]. [T-wave normal]. Impression: No EKG evidence of acute ischemia or dysrhythmia. Patient will be signed out to oncoming ER physician pending re-evaluation after breathing treatments with plan for possible admission if she continues to have difficulty breathing <Ivory Jamison MD - Last Filed: 04/06/25 19:42> Differential Diagnosis Differential Diagnosis: COPD exacerbation, CHF exacerbation, ACS, pneumonia <Ivory Jamison MD - Last Filed: 04/06/25 19:42> Lab Data Result diagrams: 04/06/25 17:27 04/06/25 17:27 <Ivory Jamison MD - Last Filed: 04/06/25 19:42> Labs: Lab Results 04/06/25 Range/Units 17:27 WBC 15.7 H (4.5-10.0) K/mm3 RBC 4.22 (4.2-5.4) M/mm3 Hgb 14.0 (12.0-15.0) g/dL Hct 43.2 (37.0-47.0) % MCV 102.4 H (80-100) fl MCH 33.2 (26-34) pg MCHC 32.4 (32-36) g/dl RDW 13.2 (11.5-14.5) % Plt Count 245 (150-375) k/mm3 MPV 9.4 (7.4-10.4) fl Immature Gran % (Auto) 0.2 (0-0.5) % Neut % (Auto) 79.6 H (45.5-73.1) % Lymph % (Auto) 13.9 L (18.3-44.2) % [place] % (Auto) 4.4 (2.6-8.5) % Eos % (Auto) 1.3 (0-4.4) % Baso % (Auto) 0.6 (0.2-1.2) % Lymph # (Auto) 2.19 (0.9-3.2) K/mm3 [place] # (Auto) 0.7 H (0.1-0.6) K/mm3 Eos # (Auto) 0.2 (0-0.3) K/mm3 Baso # (Auto) 0.1 (0.0-0.1) K/mm3 Abs Immat Gran (auto) 0.03 (0.00-0.031) K/mm3 Absolute Neuts (auto) 12.5 H (1.3-6.7) K/mm3 Absolute Nucleated RBC 0.000 (0.0-0.012) K/mm3 Nucleated RBC % 0.0 (0.0-0.2) % PT 12.4 (11.1-14.7) Seconds INR 0.9 APTT 21.4 L (22.3-36.8) Seconds Sodium 134 L (137-145) mmol/L Potassium 3.8 (3.4-5.0) mmol/L Chloride 101 (98-107) mmol/L Carbon Dioxide 31 H (22-30) mmol/L Anion Gap 2 L (4-12) mmol/L BUN 18 H (7-17) mg/dL Creatinine 0.79 (0.7-1.0) mg/dL Estim Creat Clear Calc 72 ml/min Estimated GFR > 60 (59 - ) Glucose 135 H (65-110) mg/dL Calcium 9.1 (8.4-10.2) mg/dL Total Bilirubin 1.1 (0.2-1.3) mg/dL AST 70 H (14-36) U/L ALT 69 H (6-35) U/L Alkaline Phosphatase 344 H (38-126) U/L Troponin I < 0.012 (0.000-0.034) ng/mL NT-Pro-B Natriuret Pep 295 H (19.9-100) pg/mL Total Protein 7.4 (6.3-8.2) g/dL Albumin 4.1 (3.5-5.1) g/dL <Ivory Jamison MD - Last Filed: 04/06/25 19:42> Lab Results 04/06/25 Range/Units 17:27 WBC 15.7 H (4.5-10.0) K/mm3 RBC 4.22 (4.2-5.4) M/mm3 Hgb 14.0 (12.0-15.0) g/dL Hct 43.2 (37.0-47.0) % MCV 102.4 H (80-100) fl MCH 33.2 (26-34) pg MCHC 32.4 (32-36) g/dl RDW 13.2 (11.5-14.5) % Plt Count 245 (150-375) k/mm3 MPV 9.4 (7.4-10.4) fl Immature Gran % (Auto) 0.2 (0-0.5) % Neut % (Auto) 79.6 H (45.5-73.1) % Lymph % (Auto) 13.9 L (18.3-44.2) % [place] % (Auto) 4.4 (2.6-8.5) % Eos % (Auto) 1.3 (0-4.4) % Baso % (Auto) 0.6 (0.2-1.2) % Lymph # (Auto) 2.19 (0.9-3.2) K/mm3 [place] # (Auto) 0.7 H (0.1-0.6) K/mm3 Eos # (Auto) 0.2 (0-0.3) K/mm3 Baso # (Auto) 0.1 (0.0-0.1) K/mm3 Abs Immat Gran (auto) 0.03 (0.00-0.031) K/mm3 Absolute Neuts (auto) 12.5 H (1.3-6.7) K/mm3 Absolute Nucleated RBC 0.000 (0.0-0.012) K/mm3 Nucleated RBC % 0.0 (0.0-0.2) % PT 12.4 (11.1-14.7) Seconds INR 0.9 APTT 21.4 L (22.3-36.8) Seconds Sodium 134 L (137-145) mmol/L Potassium 3.8 (3.4-5.0) mmol/L Chloride 101 (98-107) mmol/L Carbon Dioxide 31 H (22-30) mmol/L Anion Gap 2 L (4-12) mmol/L BUN 18 H (7-17) mg/dL Creatinine 0.79 (0.7-1.0) mg/dL Estim Creat Clear Calc 72 ml/min Estimated GFR > 60 (59 - ) Glucose 135 H (65-110) mg/dL Calcium 9.1 (8.4-10.2) mg/dL Total Bilirubin 1.1 (0.2-1.3) mg/dL AST 70 H (14-36) U/L ALT 69 H (6-35) U/L Alkaline Phosphatase 344 H (38-126) U/L Troponin I < 0.012 (0.000-0.034) ng/mL NT-Pro-B Natriuret Pep 295 H (19.9-100) pg/mL Total Protein 7.4 (6.3-8.2) g/dL Albumin 4.1 (3.5-5.1) g/dL <Ady May DO - Last Filed: 04/06/25 20:07> Imaging Data Radiologist's impression: ITS Impressions Chest X-Ray 04/06/25 16:43 Impression: No acute cardiopulmonary abnormality. <Ivory Jamison MD - Last Filed: 04/06/25 19:42> ITS Impressions Chest X-Ray 04/06/25 16:43 Impression: No acute cardiopulmonary abnormality. <Ady May DO - Last Filed: 04/06/25 20:07> Discharge Plan Discharge Clinical Impression: Acute exacerbation of chronic bronchitis <Ivory Jamison MD - Last Filed: 04/06/25 19:42> Patient Disposition: Home <Ivory Jamison MD - Last Filed: 04/06/25 19:42> Condition: Stable <Ivory Jamison MD - Last Filed: 04/06/25 19:42> Instructions: Antibiotic Form, Acute Bronchitis (ED), COPD (Chronic Obstructive Pulmonary Disease) (ED) <Ivory Jamison MD - Last Filed: 04/06/25 19:42> Additional Instructions: Take the antibiotic and steroid as prescribed to completion. Use your inhaler 2 puffs when he gets home and then another 2 puffs 4 hours later and then use the inhaler every 4 hours as needed. Follow-up with your doctor in the next few days for reassessment. Return immediately to the emergency department if you are unable to control your symptoms at home despite medications or develop any new or concerning symptoms especially any emergent concerns for life, limb, eyesight. Please refrain from smoking. Follow-up with your doctor regarding her elevated liver enzymes as these will need to be monitored. <Ivory Jamison MD - Last Filed: 04/06/25 19:42> Patient Language: Belarusian <Ivory Jamison MD - Last Filed: 04/06/25 19:42> Prescriptions: New doxycycline hyclate 100 mg tablet 100 mg PO BID 5 Days Qty: 10 0RF albuterol sulfate 90 mcg/actuation aerosol powdr breath activated 2 inh inhalation Q4-6H PRN (Reason: shortness of breath or wheezing) Qty: 1 0RF prednisone 50 mg tablet 50 mg PO DAILY 5 Days Qty: 5 0RF No Action methylprednisolone [Medrol (Moisés)] 4 mg tablets,dose pack See Rx Instructions .ROUTE .COMPLEX Qty: 21 0RF Rx Instructions: orally per package directions fluticasone propionate [Flonase Allergy Relief] 50 mcg/actuation spray,suspension 2 spray NASAL DAILY 14 Days Qty: 15.8 0RF Rx Instructions: administer into each nostril hydralazine 50 mg tablet 50 mg PO BID Qty: 60 4RF metformin 500 mg tablet 500 mg PO BID pravastatin [Pravachol] 20 mg tablet 20 mg PO DAILY <Ivory Jamison MD - Last Filed: 04/06/25 19:42> Follow-up/Referrals: Arnie,ELMIRA Weller [Primary Care Provider, Unknown] - 2 Days <Ivory Jamison MD - Last Filed: 04/06/25 19:42> Time of Disposition: 20:05 <Ivory Jamison MD - Last Filed: 04/06/25 19:42> 20:05 <Ady May DO - Last Filed: 04/06/25 20:07>
[2025-04-06] MEDS: DOXYCYCLINE HYCLATE 100 MG TABLET PO (20:22)
== END 2025-04-06 20:29 | disposition home or self-care (01) ==
PROVIDERS: Emergency Medicine; Emergency Provider Student in an Organized Health Care Education/Training Program; PCP Nurse Practitioner
DX: J42 Unspecified chronic bronchitis (principal); F17.210 Nicotine dependence, cigarettes, uncomplicated
CPT/HCPCS: 36415; 71046; 80053; 83880; 84484; 85025; 85610; 85730; 93005; 94640; 99284; A9270